=== PATIENT | male | born 1950 | race Caucasian/White ===

== ENCOUNTER 2024-08-08 08:37 | Inpatient (IN) ==
[2024-08-08] MEDS: LORazepam 2 MG/1 ML VIAL IM STA (08:46)
[2024-08-08] MEDS: HALOPERIDOL LACTATE 5 MG/ML 1 ML VIAL IM STA (08:46)
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
[2024-08-08] MEDS: HALOPERIDOL LACTATE 5 MG/ML 1 ML VIAL ONE ×2 (09:19→16:22)
[2024-08-08] MEDS: HALOPERIDOL LACTATE 5 MG/ML 1 ML VIAL IV STA ×2 (09:21→10:16)
[2024-08-08 09:33] LABS: Basophils # (auto) 0.04 K/uL (0.00-0.20); Basophils % (auto) 0.4 %; Eosinophils # (auto) 0.14 K/uL (0.00-0.50); Eosinophils % (auto) 1.5 %; Hematocrit (blood only) 40.8 % (42.0-52.0); Hemoglobin 14.3 g/dl (14.0-18.0); Immature Granulocytes # (auto) 0.08 K/uL (0.01-0.20); Immature Granulocytes % (auto) 0.9 %; Lymphocytes # (auto) 1.31 K/uL (1.20-3.40); Lymphocytes % (auto) 14.2 %; Mean Corpuscular Hemoglobin 31.2 pg (25.0-34.0); Mean Corpuscular Volume 89.1 fL (80.0-100.0); Mean Platelet Volume 10.1 fL (9.4-12.4); Monocytes # (auto) 0.69 K/uL (0.11-0.59); Monocytes % (auto) 7.5 %; Neutrophils # (auto) 6.94 K/uL (1.40-6.50); Neutrophils % (auto) 75.5 %; Platelet Count 164 K/uL (130-400); RDW Coefficient of Variation 12.4 % (11.5-14.5); RDW Standard Deviation 40.7 fL (36.4-46.3); Red Blood Count 4.58 M/uL (4.70-6.10)
--- NOTE | 2024-08-08 09:46 | XRay Report ---
XR chest 1V portable CLINICAL HISTORY: trauma, fall, ams, dementia TECHNIQUE: Single frontal radiograph of the chest was obtained. Comparison: None available at the time of this dictation. FINDINGS: An implanted pacemaker is seen. The cardiomediastinal silhouette is normal. The lungs are clear. No e vidence of pleural effusion or pneumothorax. IMPRESSION: No acute chest disease. ACT 112: Negative or not required by law. Electronically signed by: Benoit Silver M.D. 08/08/2024 9:45 AM
[2024-08-08 09:47] LABS: Alanine Aminotransferase 24 U/L (7-52); Albumin Globulin Ratio 1.6 (0.9-2); Albumin Level 4.5 gm/dl (3.4-5.0); Alkaline Phosphatase 83 U/L (34-104); Anion Gap 13 (3-11); Aspartate Aminotransferase 23 U/L (13-39); BUN Creatinine Ratio 18.7 (10-20); Bilirubin,Total 0.7 mg/dl (0.2-1.0); Blood Urea Nitrogen 23 mg/dl (6-23); Calcium 9.6 mg/dl (8.6-10.3); Carbon Dioxide 22 mmol/L (21-32); Chloride 106 mmol/L (98-107); Globulin 2.8 gm/dl (2.5-4.0); Glucose 169 mg/dl (70-99(Fasting)); Magnesium 1.8 mg/dl (1.7-2.4); Potassium 3.8 mmol/L (3.5-5.1); Sodium 141 mmol/L (136-145); Total Protein 7.3 gm/dl (6.0-8.3)
[2024-08-08 09:57] LABS: INR 1.1 (0.9-1.1); Prothrombin Time 11.9 Seconds (9.0-12.0)
[2024-08-08 10:01] LABS: Thyroid Stimulating Hormone 2.438 uIu/ml (0.300-4.500)
[2024-08-08] MEDS: FAMOTIDINE 20MG IV PUSH 20 MG/5 ML SYR IV STA (11:25)
[2024-08-08] MEDS: dexAMETHasone**PF** 10 MG/ML VIAL IV ONE (11:25)
[2024-08-08] MEDS: diphenhydrAMINE 50 MG/ML VIAL IV STA (11:25)
--- NOTE | 2024-08-08 11:26 | Electrocardiogram Report ---
Test Reason : Blood Pressure : */* mmHG Vent. Rate : 134 BPM Atrial Rate : 300 BPM P-R Int : * ms QRS Dur : 92 ms QT Int : 380 ms P-R-T Axes : * -29 -26 degrees QTcB Int : 567 ms Atrial flutter with variable A-V block with rapid ventricular response Abnormal ECG No previous ECGs available Confirmed by Afshin Villa ([id number]) on 08/08/2024 11:26:27 AM Referred By: REFERRED SELF Confirmed By: Afshin Villa
--- NOTE | 2024-08-08 12:45 | CT Scan Report ---
CT head/brain wo con CLINICAL HISTORY: trauma, fall, ams, dementia Technique: Contiguous axial CT images of the head were acquired from the base of the skull to the jim rose without intravenous contrast administration. Images were viewed in brain, subdural and bone [facility]. Automated dose lowering techniques and/or adjustment according to patient size were utilized for this exam. Comparison: None available at the time of this dictation. Findings: Areas of decreased attenuation are present in the periventricular and subcortical white matter bilate rally consistent with small vessel ischemic disease. Generalized cerebral atrophy with commensurate e nlargement of the ventricles, sulci, and cisterns is also present. There is no acute intracranial hem orrhage or evidence of acute territorial infarction. No shift of the midline structures, mass effect, or extra-axial abnormalities are shown. Atherosclerotic calcifications are present in the intracran ial segments of the internal carotid arteries. Calcifications of the falx are seen. Imaged portions of the paranasal sinuses and mastoid air cells are clear. The orbits appear normal. There are no acute fractures of the calvaria or scalp swelling. Impression: No acute intracranial hemorrhage, no evidence of acute territorial infarction or other acute intracra nial disease process. ACT 112: Negative or not required by law. Electronically signed by: Benoit Silver M.D. 08/08/2024 12:43 PM
--- NOTE | 2024-08-08 12:45 | CT Scan Report ---
CT OF THE CERVICAL SPINE WITHOUT CONTRAST CLINICAL HISTORY: trauma, fall, ams, dementia COMPARISON STUDY: No previous studies for comparison. TECHNIQUE: Helical axial images of the cervical spine were obtained without IV contrast. Sagittal a nd coronal reconstructions were viewed. Automated exposure control was utilized for the study. A do se lowering technique was utilized adhering to the principles of ALARA. FINDINGS: There is reversal of the cervical lordosis. Vertebral body heights are maintained. No acute cervical spine fracture or subluxation is present. There is no prevertebral edema. Facet joints are intact. Moderate multilevel degenerative disc disease with disc space narrowing and endplate osteoph ytosis is present. There is moderate multilevel facet arthrosis. IMPRESSION: No acute cervical spine fracture or subluxation. ACT 112: Negative or not required by law. Electronically signed by: Pankaj Mensah M.D. 08/08/2024 12:44 PM
[2024-08-08] MEDS: OLANZapine 10 MG/2.1 ML SDV IM STA (12:46)
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
--- NOTE | 2024-08-08 13:47 | Emergency Department Note ---
ED Visit Note I was asked by Dr. Mckeon, ED attending physician, to perform a forehead laceration repair on this 74-year-old male patient. Please see Dr. Mckeon's d ictation for further details of the patient's injuries, treatment provided and final disposition. PROCEDURE NOTE: It is noted that the patient was sedated prior to my procedure. I did explain to the patient what I was going to do, and he agreed to allow me to perform the repair. Using lidocaine 1% with epinephrine, good local anesthesia was administered. Peripheral tissue was then cleansed with iodine, then the wound was irrigated with approximately 125 cc of normal saline. Exploration of the wound does show an underlying 1.5 cm laceration that extends into the underlying subcutaneous space. This portion of the wound was approximated using a 5-0 Vicryl running suture. After irrigation, the wound was then externally closed using 5-0 nylon simple interrupted sutures x 8. External wound measures 4.5 cm in length. Bacitracin was applied. The patient tolerated the procedure well without any significant bleeding. .
[2024-08-08] MEDS: LIDOCAINE 1%/EPINEPHRINE 1:100,000 50 ML VIAL INFIL ONE (14:15)
[2024-08-08] MEDS: DIPHTHER/TETAN/PERTUS Vaccine (Tdap, Adol/Adult) 0.5mL IM ONE (14:51)
[2024-08-08] MEDS ORDERED: CARBOHYDRATES FOR HYPOGLYCEMIA PO PRN (16:05)
[2024-08-08] MEDS ORDERED: GLUCOSE 40% GEL 15 GM TUBE PO PRN (16:05)
[2024-08-08] MEDS ORDERED: GLUCAGON FOR INJ 1 MG VIAL SQ PRN (16:05)
[2024-08-08] MEDS ORDERED: VANCOMYCIN CONSULT ACTIVE PRN (16:05)
[2024-08-08] MEDS ORDERED: DEXTROSE 50% 50 ML SYRINGE IV PRN (16:05)
[2024-08-08] MEDS ORDERED: ONDANSETRON INJ 2 MG/ML 2 ML VIAL IV PRN (16:05)
[2024-08-08] MEDS ORDERED: GLUCOSE 10 TAB/TUBE PO PRN (16:05)
[2024-08-08] MEDS: HALOPERIDOL LACTATE 5 MG/ML 1 ML VIAL IM PRN (16:21)
[2024-08-08] MEDS: Patient's HEIGHT &/or WEIGHT Needed STA (17:57)
[2024-08-08] MEDS: METOPROLOL TARTRATE 25 MG TAB PO STA (17:57)
[2024-08-08] MEDS: Patient's ALLERGY Info needs ENTERED STA (17:57)
[2024-08-08] MEDS: INSULIN ASPART PER UNIT CHARGE SC SCH (18:03)
[2024-08-08] MEDS: VANCOMYCIN HCL 1,750 MG in SODIUM CHLORIDE 0.9% 500 ML IV ONE (18:28)
[2024-08-08] MEDS: SODIUM CHLORIDE 0.9% 500 ML IV SCH (18:51)
[2024-08-08] MEDS: cefTRIAXone SODIUM 2,000 MG/50 ML BAG IV SCH (19:31)
[2024-08-08] MEDS: SIMVASTATIN 40 MG TAB PO SCH (20:13)
[2024-08-08] MEDS: TAMSULOSIN HCL 0.4 MG CAP PO SCH (20:13)
[2024-08-08] MEDS: QUEtiapine FUMARATE 25 MG TABLET PO SCH (20:14)
[2024-08-08] MEDS: FAMOTIDINE 20 MG TAB PO SCH (20:14)
[2024-08-08] MEDS ORDERED: SODIUM CHLORIDE 0.9% IV SCH (21:00)
[2024-08-08] MEDS ORDERED: VANCOMYCIN HCL IV SCH (21:00)
[2024-08-08] MEDS ORDERED: MEMANTINE HCL 10 MG TAB PO SCH (21:00)
[2024-08-09 00:31] LABS: Appearance Urine Turbid (Clear); Bacteria Urine Automated None Seen (None Seen); Bilirubin Urine Negative (Negative); Blood Urine Negative (Negative); Color Urine Yellow; Epithelial Cell Urine Auto 0-2 /hpf (0-2); Glucose Urine UA 1+ (Negative); Ketones Urine Negative (Negative); Leukocyte Esterase Urine Negative (Negative); Nitrite Urine Negative (Negative); Protein Urine Negative (Negative); RBC Urine Automated 0-2 /hpf (0-2); Specific Gravity Urine 1.026 (1.000-1.030); Urobilinogen Urine Negative (Negative); WBC Urine Automated 0-5 /hpf (0-5)
[2024-08-09 01:01] LABS: Amorphous Sediment Urine Present (None Prsent)
[2024-08-09] MEDS: VANCOMYCIN HCL 750 MG in SODIUM CHLORIDE 0.9% 250 ML IV SCH (05:28)
[2024-08-09 06:42] LABS: Basophils # (auto) 0.03 K/uL (0.00-0.20); Basophils % (auto) 0.3 %; Eosinophils # (auto) 0.04 K/uL (0.00-0.50); Eosinophils % (auto) 0.4 %; Hematocrit (blood only) 39.5 % (42.0-52.0); Hemoglobin 13.8 g/dl (14.0-18.0); Immature Granulocytes # (auto) 0.04 K/uL (0.01-0.20); Immature Granulocytes % (auto) 0.4 %; Lymphocytes # (auto) 1.08 K/uL (1.20-3.40); Lymphocytes % (auto) 10.8 %; Mean Corpuscular Hemoglobin 31.4 pg (25.0-34.0); Mean Corpuscular Hgb Conc 34.9 g/dL (32.0-36.0); Mean Platelet Volume 9.8 fL (9.4-12.4); Monocytes # (auto) 0.87 K/uL (0.11-0.59); Monocytes % (auto) 8.7 %; Neutrophils # (auto) 7.98 K/uL (1.40-6.50); Neutrophils % (auto) 79.4 %; Platelet Count 140 K/uL (130-400); RDW Coefficient of Variation 12.5 % (11.5-14.5); RDW Standard Deviation 41.3 fL (36.4-46.3); Red Blood Count 4.39 M/uL (4.70-6.10); White Blood Count 10.04 K/ul (4.8-10.8)
[2024-08-09 06:52] LABS: BUN Creatinine Ratio 20.5 (10-20); Calcium 8.9 mg/dl (8.6-10.3); Creatinine Clr Calc Pharmacy 90.9 ml/min; Magnesium 1.9 mg/dl (1.7-2.4); Potassium 3.9 mmol/L (3.5-5.1)
[2024-08-09] MEDS ORDERED: DEXAMETHASONE SOD INJ 4 MG/ML VIAL IV SCH (09:00)
[2024-08-09] MEDS ORDERED: DONEPEZIL HCL 10 MG TAB PO SCH (09:00)
[2024-08-09] MEDS ORDERED: dexAMETHasone 6 MG in SYRINGE 0 ML IV SCH (09:00)
[2024-08-09] MEDS: risperiDONE 1 MG TABLET PO SCH (09:37)
[2024-08-09] MEDS: APIXABAN 5 MG TABLET PO SCH (09:37)
[2024-08-09] MEDS: METOPROLOL SUCC 50MG EXT REL TAB PO SCH (09:37)
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
--- NOTE | 2024-08-09 11:11 | XCELERA ---
[id number]
[2024-08-09 13:55] LABS: Estimated Average Glucose 131 mg/dl; Hemoglobin A1C 6.2 % (4.5-5.6)
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
[2024-08-10] MEDS: LORazepam 2 MG/1 ML VIAL IV STA (01:00)
[2024-08-10] MEDS: HALOPERIDOL LACTATE 5 MG/ML 1 ML VIAL IV STA ×2 (01:00→01:27)
[2024-08-10 07:26] LABS: Basophils # (auto) 0.03 K/uL (0.00-0.20); Basophils % (auto) 0.4 %; Eosinophils # (auto) 0.13 K/uL (0.00-0.50); Eosinophils % (auto) 1.5 %; Hematocrit (blood only) 38.7 % (42.0-52.0); Hemoglobin 13.1 g/dl (14.0-18.0); Immature Granulocytes # (auto) 0.05 K/uL (0.01-0.20); Immature Granulocytes % (auto) 0.6 %; Lymphocytes # (auto) 1.29 K/uL (1.20-3.40); Lymphocytes % (auto) 15.2 %; Mean Corpuscular Hemoglobin 30.8 pg (25.0-34.0); Mean Corpuscular Hgb Conc 33.9 g/dL (32.0-36.0); Mean Corpuscular Volume 91.1 fL (80.0-100.0); Mean Platelet Volume 10.2 fL (9.4-12.4); Monocytes # (auto) 0.66 K/uL (0.11-0.59); Monocytes % (auto) 7.8 %; Neutrophils # (auto) 6.33 K/uL (1.40-6.50); Neutrophils % (auto) 74.5 %; Platelet Count 143 K/uL (130-400); RDW Coefficient of Variation 12.7 % (11.5-14.5); RDW Standard Deviation 41.9 fL (36.4-46.3); Red Blood Count 4.25 M/uL (4.70-6.10); White Blood Count 8.49 K/ul (4.8-10.8)
[2024-08-10 07:52] LABS: BUN Creatinine Ratio 23.8 (10-20); Calcium 9.2 mg/dl (8.6-10.3); Creatinine Clr Calc Pharmacy 89.8 ml/min; Potassium 3.6 mmol/L (3.5-5.1)
[2024-08-10] MEDS: QUEtiapine FUMARATE 25 MG TABLET PO SCH (08:51)
--- NOTE | 2024-08-10 10:49 | Hospitalist Progress Note ---
Date of Service August 10, 2024 Assessment & Plan (1) Metabolic encephalopathy: Plan: I do not believe his current symptoms represent metabolic encephalopathy. 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 Psychiatry consultation requested. Seroquel has been increased to 50 mg twice daily dosing. No evidence of urinary tract infection. Rocephin has been discontinued (2) Alzheimer dementia with behavioral disturbance: Plan: Supportive care. Seroquel dosage increased to 50 mg twice daily. Psychiatry evaluation requested (3) Diabetes mellitus: Plan: Stable. ADA diet. Sliding scale coverage as needed (4) Atrial fibrillation: Plan: Stable. Continue current medical management. Continue Eliquis. Cardiac echo report noted. No significant findings Plan Eventual long-term care placement probably in a dementia lockdown unit Admission and Anticipated Discharge Date Admission Date: August 08, 2024 Subjective The patient is awake but completely disoriented. He had sundown psychosis again last night requiring high doses of Ativan. Seroquel has been increased to 50 mg twice daily. Psychiatry consultation requested. No evidence of infection. Rocephin discontinued. Cardiac echo reveals moderate left ventricular hypertrophy with normal ejection fraction, no regional wall motion abnormalities, mild mitral regurgitation, mild left atrial enlargement. Urine analysis on admission was unremarkable. Review of Systems 2 Review of Systems: The patient is unable to reliably answer any review of systems questions at this time Physical Exam 2 Physical Exam: General-alert but disoriented. No fever HEENT-head atraumatic and normocephalic, pupils equal and reactive to light, extraocular muscles intact Neck-no lymphadenopathy or thyromegaly, trachea midline Chest-clear to auscultation. No rales, wheezing or rhonchi Cardiac-regular rate and rhythm, normal S1 and S2 Abdomen-normal bowel sounds, no hepatosplenomegaly Extremities-no cyanosis, clubbing, or edema Neuro-cranial nerves II through XII intact, motor and sensory function within normal limits, strength symmetrical, no focal deficits Psych-baseline dementia and completely disoriented at this time Results & Data Results & Data Vital Signs (Past 12 Hours) Vital Signs Temp Pulse Pulse Pulse Resp BP Pulse Ox 08/10/24 10:28 36.4 C L 65 21 155/100 H 98 08/10/24 09:06 57 L 08/10/24 07:37 08/10/24 07:06 36.4 C L 69 20 181/108 H 97 08/10/24 04:55 36.8 C 78 20 127/78 97 08/09/24 23:46 80 O2 Del Method 08/10/24 10:28 Room Air 08/10/24 09:06 08/10/24 07:37 Room Air 08/10/24 07:06 Room Air 08/10/24 04:55 Room Air 08/09/24 23:46 Laboratory Results 08/10/24 06:06 08/10/24 06:06 PG Care Time/CCT Total # of Minutes Spent Total Time Spent with Patient: Total time spent is greater than 50% in coordination of care (as documented) at patient's floor/unit and/or counseling patient: Coding Level of Care Code 70798 SUB INP/OBS CARE 3/50MIN Diagnoses Metabolic encephalopathy G93.41 Alzheimer dementia with behavioral disturbance G30.9; F02.818 Diabetes mellitus E11.9 Atrial fibrillation I48.91
--- NOTE | 2024-08-10 13:10 | Psychiatric Consultation ---
Date of Consultation August 10, 2024 Impression / Recommendations Impression 74 yo man with dementia with behavioral disturbance admitted medically for concern for metabolic encephalopathy and increased aggression. Psychiatry consulted for recommendation for dementia with agitation. Diagnostically consistent with possible encephalopathy/delirium superimposed on dementia with behavioral disturbance. Goal in dementia is to avoid medication management of behaviors if possible by maximizing non-pharmacologic strategies for behavioral management. However, given worsening agitation/aggression agree with use of scheduled antipsychotic as risk/benefit profile favors treatment. Note all antipsychotic medications carry black box warning for increased risk of all-cause mortality in setting of dementia. There is not evidence that combining multiple antipsychotics at non- optimized doses offers any improved benefit and increases risk for side effects so recommend attempting to consolidate use to one scheduled antipsychotic agent. Unclear if Seroquel vs risperidone was thought to be offering more if any benefit but would hold risperidone at this time given greater risk for EPS especially given reports of hallucinations at times and various dementia diagnoses on his problem list from [facility] (FTD, Alzheimer's disease, vascular). Haldol is typically considered higher risk for elderly population so would attempt use of olanzapine or Geodon for IM agent for behavioral emergency. If ineffective haldol can be considered as backup option but especially with IV use he must allow and remain on tele and EKG this morning showed QTc approaching 500mg. If QTc becomes >500ms would then use ativan as monotherapy for behavioral emergency given increased risk for torsades. Agree with increased dose of Seroquel as ordered, as things level out ideally he would have 25mg qAM and 50 or 75mg HS but I think given no signs of excessive sedation currently fine to keep at 50mg BID. I would not order prior to admission risperidone for now as just further impacts QTc and increases risk for additional side effects of akathisia which can perpetuate restlessness. While far from first line tx could consider clonidine patch for agitation and option for IV depakote if agitation worsens again. Sure scripts also shows he was on zoloft 200mg daily so I'd recommend starting maybe sertraline 100mg to at least prevent serotonin withdrawal further complicating the picture. Continue to monitor for benzo withdrawal given long hx of ativan use, suspect this may have contributed significantly to recent disinhibition. With his need for steroids on admission his agitation may get worse before it gets better. Overall, I spent a total of 60 minutes with this case including review of chart records, review of labwork, review of EKG QTc, direct evaluation of the patient at bedside, counseling the patient, discussion of the patient with the Nurse and with the hospitalist provider, discussion with the psychiatric liason during clinical rounds and documentation in the electronic health record. (1) Alzheimer dementia with behavioral disturbance: (2) Metabolic encephalopathy: Plan -Start sertraline 100mg qd as on sertraline prior to admission per sure scripts review -Agree with Seroquel 50mg BID po -Hold prior to admission risperidone, olanzapine and haldol -Consider clonidine patch for agitation -Consider use of IV Depakote if agitation increases again -1-on-1 given level of agitation -Consider melatonin 3mg qhs -Continue medical workup to rule out and treat any underlying causes contributing to potential delirium, avoid or limit use of deliriogenic medications (benzodiazepines, opioids, anticholinergics) -Continue with delirium prevention measures: raising blinds during the day, closing at night, frequent re-orientation, contact with family/friends, explaining procedures/nursing care measures prior to physical contact, correct any hearing and visual impairments -For behavioral emergency: olanzapine 5 mg IM x 1 (DO NOT exceed 20mg per 24 hours, check EKG if IM dose required, NEVER co-administer with IM or IV benzodiazepines). Psych History Identifying Data 74 yo man with dementia with behavioral disturbance admitted medically [facility] for metabolic encephalopathy and increased aggression. Psychiatry consulted for recommendation for dementia with agitation. Chief Complaint "Don't be a stranger, stop by anytime". History of Present Illness Raúl was brought to the hospital from [facility] for increased aggression requiring police intervention. He has required multiple medications for agitation since admission including haldol IM and IV. Within the last 24 hours has required 20mg of haldol (15mg total via IV and 5mg total IM) due to aggression. Review of outpatient prescription records show he has recent scripts for sertraline 200mg daily, ativan 1mg BID, risperidone 1mg daily, Seroquel 25mg BID, zyprexa 5mg ODT q8h prn, and haldol 2mg po q6h prn. Today mid-day he is pleasant, confused, cannot recall how he hurt his forehead. At one point asks "who reported me?" but able to be distracted from this unclear line of questions as deemed this could escalate his agitation due to paranoia. 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 No evidence for akathisia or EPS on visual exam. Allergies Allergy/AdvReac Type Severity Reaction Status Date / Time Penicillins Allergy Unknown Unknown - Unverified 08/09/24 17:41 On med list w/ [facility] levofloxacin Allergy Unknown Verified 08/09/24 17:41 Home Medications Medication Instructions Recorded Confirmed Type acetaminophen 325 mg tablet 650 mg PO Q6H PRN Pain/Fever 08/09/24 08/09/24 History apixaban 5 mg tablet (Eliquis) 5 mg PO BID 08/09/24 08/09/24 History atorvastatin 20 mg tablet 20 mg PO HS 08/09/24 08/09/24 History bisacodyl 10 mg rectal suppository 10 mg MT DAILY PRN Constipation 08/09/24 08/09/24 History (Dulcolax (bisacodyl)) cholecalciferol (vitamin D3) 25 25 mcg PO DAILY 08/09/24 08/09/24 History mcg (1,000 unit) tablet coenzyme Q10 100 mg capsule 200 mg PO DAILY 08/09/24 08/09/24 History (CoQ-10) donepezil 5 mg tablet 10 mg PO HS 08/09/24 08/09/24 History haloperidol 2 mg tablet 2 mg PO Q6H PRN 08/09/24 08/09/24 History Agitation/Aggression magnesium hydroxide 400 mg/5 mL 2,400 mg PO DAILY PRN Constipation 08/09/24 08/09/24 History oral suspension (Milk of Magnesia) magnesium oxide 250 mg PO HS 08/09/24 08/09/24 History memantine 10 mg tablet 10 mg PO BID 08/09/24 08/09/24 History metformin 500 mg tablet 500 mg PO DAILY 08/09/24 08/09/24 History metoprolol succinate 25 mg 25 mg PO DAILY 08/09/24 08/09/24 History tablet,extended release 24 hr olanzapine 5 mg tablet (Zyprexa) 5 mg PO Q8H PRN Agitation 08/09/24 08/09/24 History quetiapine 25 mg tablet (Seroquel) 25 mg PO BID 08/09/24 08/09/24 History risperidone 1 mg tablet (Risperdal) 1 mg PO DAILY 08/09/24 08/09/24 History sodium phosphates 19 gram-7 118 ml MT DAILY PRN Constipation 08/09/24 08/09/24 History gram/118 mL enema (Fleet Enema) tamsulosin 0.4 mg capsule (Flomax) 0.4 mg PO DAILY 08/09/24 08/09/24 History vitamin E 1,000 unit tablet 1 tab PO HS 08/09/24 08/09/24 History Patient History Social History Smoking Status: Unknown if ever smoked Preferred Language: Ivorian Communication Ability: Impaired Current Living Situation: [facility] Other Information That Helps Us Care for You: No Feels Safe at Home: Declines to Answer Assistive Devices: None Physical Exam Psychiatric: Orientation: alert and oriented to person; + not oriented to place and + not oriented to time Apperance: + disheveled Eye Contact: + fair eye contact Motor Behavior: no abnormal motor movements Speech: + abnormal rate/rhythm/volume of speech (mumbling at times) Affect: + labile affect Mood: + angry mood (at times); no anxious mood and no irritable mood Thought Process: + looseness of associations Thought Content: + preoccupation Suicidal Thoughts: denies suicidal thoughts Homicidal Thoug hts: denies homicidal thoughts Hallucinations: no auditory hallucinations and no visual hallucinations Cognition: language grossly intact; + recent memory not intact and + attention not intact Insight: + severely impaired insight Judgment: + severely impaired judgement Vital Signs (Past 24 Hours): Last Vital Signs Temp 36.4 C L 08/10/24 10:28 Pulse 65 08/10/24 10:28 Resp 21 08/10/24 10:28 BP 155/100 H 08/10/24 10:28 Pulse Ox 98 08/10/24 10:28 O2 Del Method Room Air 08/10/24 10:28 Results & Data (PSY) Medications Administered Apixaban (Apixaban 5 Mg Tablet) 5 mg PO BID RIGO Stop: 09/08/24 08:59 Last Admin: 08/10/24 08:52 Dose: 5 mg Documented By: Admin: 08/09/24 21:17 Dose: 5 mg Documented By: Admin: 08/09/24 09:37 Dose: 5 mg Documented By: MORAIMA Famotidine (Famotidine 20 Mg Tab) 20 mg PO BID RIGO Stop: 09/07/24 20:59 Last Admin: 08/10/24 08:52 Dose: 20 mg Documented By: Admin: 08/09/24 21:17 Dose: 20 mg Documented By: Admin: 08/09/24 09:36 Dose: 20 mg Documented By: Admin: 08/08/24 20:14 Dose: 20 mg Documented By: EDNA Haloperidol Lactate (Haloperidol Lactate 5 Mg/Ml 1 Ml Vial) 5 mg IM DAILY PRN PRN Reason: agitation/aggression Stop: 09/07/24 16:04 Last Admin: 08/10/24 00:04 Dose: 5 mg Documented By: Admin: 08/08/24 16:21 Dose: 5 mg Documented By: WALT Insulin Aspart (Insulin Aspart Per Unit Charge) 0 units SC ACHS RIGO Stop: 09/07/24 16:29 Last Admin: 08/10/24 12:42 Dose: Not Given Documented By: Admin: 08/10/24 07:46 Dose: Not Given Documented By: Admin: 08/09/24 21:18 Dose: Not Given Documented By: Admin: 08/09/24 16:43 Dose: 2 units Documented By: TOM Co-signed By: SERA Admin: 08/09/24 12:03 Dose: 2 units Documented By: MORAIMA Co-signed By: PRASHANT Admin: 08/09/24 09:13 Dose: Not Given Documented By: Admin: 08/08/24 20:15 Dose: 1 units Documented By: EDNA Co-signed By: ADA Admin: 08/08/24 18:03 Dose: Not Given Documented By: WALT Metoprolol Succinate (Metoprolol Succ 50mg Ext Rel Tab) 50 mg PO QAM RIGO Stop: 09/08/24 08:59 Last Admin: 08/10/24 08:52 Dose: 50 mg Documented By: Admin: 08/09/24 09:37 Dose: 50 mg Documented By: MORAIMA Quetiapine Fumarate (Quetiapine Fumarate 25 Mg Tablet) 50 mg PO BID RIGO Stop: 09/09/24 08:59 Last Admin: 08/10/24 08:51 Dose: 50 mg Documented By: JANIS Simvastatin (Simvastatin 40 Mg Tab) 40 mg PO PM RIGO Stop: 09/07/24 20:59 Last Admin: 08/09/24 21:17 Dose: 40 mg Documented By: Admin: 08/08/24 20:13 Dose: 40 mg Documented By: EDNA Tamsulosin HCl (Tamsulosin Hcl 0.4 Mg Cap) 0.4 mg PO HS RIGO Stop: 09/07/24 20:59 Last Admin: 08/09/24 21:17 Dose: 0.4 mg Documented By: Admin: 08/08/24 20:13 Dose: 0.4 mg Documented By: EDNA Coding Level of Care Code 61998 IN/OBS CONSULT LVL 4,60M Diagnoses Alzheimer dementia with behavioral disturbance G30.9; F02.818 Metabolic encephalopathy G93.41
--- NOTE | 2024-08-10 14:29 | Electrocardiogram Report ---
Test Reason : Blood Pressure : */* mmHG Vent. Rate : 70 BPM Atrial Rate : 70 BPM P-R Int : 204 ms QRS Dur : 86 ms QT Int : 454 ms P-R-T Axes : 81 -23 -17 degrees QTcB Int : 490 ms Sinus rhythm with AV dual-paced complexes and single PVC Diffuse Nonspecific T wave abnormality Prolonged QT Abnormal ECG When compared with ECG of 08-Aug-2024 11:09, Electronic ventricular pacemaker has replaced Atrial flutter Vent. rate has decreased by 64 bpm Confirmed by Afshin Villa ([id number]) on 08/10/2024 2:29:18 PM Referred By: REFERRED SELF Confirmed By: Afshin Villa
[2024-08-11] MEDS: OLANZapine 10 MG/2.1 ML SDV IM STA ×2 (00:44→02:34)
[2024-08-11 08:39] LABS: Basophils # (auto) 0.05 K/uL (0.00-0.20); Basophils % (auto) 0.6 %; Eosinophils # (auto) 0.25 K/uL (0.00-0.50); Eosinophils % (auto) 2.8 %; Hematocrit (blood only) 43.5 % (42.0-52.0); Hemoglobin 15.1 g/dl (14.0-18.0); Immature Granulocytes # (auto) 0.07 K/uL (0.01-0.20); Immature Granulocytes % (auto) 0.8 %; Lymphocytes % (auto) 18.1 %; Mean Corpuscular Hemoglobin 31.4 pg (25.0-34.0); Mean Corpuscular Hgb Conc 34.7 g/dL (32.0-36.0); Mean Corpuscular Volume 90.4 fL (80.0-100.0); Mean Platelet Volume 9.7 fL (9.4-12.4); Monocytes # (auto) 0.73 K/uL (0.11-0.59); Monocytes % (auto) 8.2 %; Neutrophils # (auto) 6.15 K/uL (1.40-6.50); Neutrophils % (auto) 69.5 %; Platelet Count 152 K/uL (130-400); RDW Coefficient of Variation 12.3 % (11.5-14.5); RDW Standard Deviation 40.6 fL (36.4-46.3); Red Blood Count 4.81 M/uL (4.70-6.10); White Blood Count 8.85 K/ul (4.8-10.8)
[2024-08-11 08:54] LABS: BUN Creatinine Ratio 21.8 (10-20); Calcium 9.4 mg/dl (8.6-10.3); Creatinine Clr Calc Pharmacy 96.7 ml/min
--- NOTE | 2024-08-11 11:13 | Hospitalist Progress Note ---
Date of Service August 11, 2024 Assessment & Plan (1) Metabolic encephalopathy: Plan: I do not believe his current symptoms represent metabolic encephalopathy. 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 Psychiatry consultation appreciated. Seroquel has been increased to 50 mg and will be given in the morning and at bedtime. No evidence of urinary tract infection. Rocephin has been discontinued (2) Alzheimer dementia with behavioral disturbance: Plan: Supportive care. Seroquel dosage increased to 50 mg twice daily. Psychiatry evaluation appreciated (3) Diabetes mellitus: Plan: Stable. ADA diet. Sliding scale coverage as needed (4) Atrial fibrillation: Plan: Stable. Continue current medical management. Continue Eliquis. Cardiac echo report noted. No significant findings Plan Hopeful discharge back to the [facility] facility tomorrow, August 12 Admission and Anticipated Discharge Date Admission Date: August 08, 2024 Subjective The patient is sleeping at the time of my rounds this morning. Apparently, he only has difficulty with sundowning during the nighttime. Seroquel will be given in the morning and again at nighttime. One-on-one supervision will be discontinued. Hopefully he can return to the [facility] tomorrow, August 12 Review of Systems 2 Review of Systems: The patient is currently asleep Physical Exam 2 Physical Exam: General-currently asleep. No fever HEENT-head atraumatic and normocephalic. Left forehead laceration is sutured with 8 interrupted sutures with hemostasis achieved. Underlying hematoma is resolving Neck-no lymphadenopathy or thyromegaly, trachea midline Chest-clear to auscultation. No rales, wheezing or rhonchi Cardiac-regular rate and rhythm, normal S1 and S2 Abdomen-normal bowel sounds, no hepatosplenomegaly Extremities-no cyanosis, clubbing, or edema Neuro-currently asleep. Cannot assess Psych-currently asleep. Cannot assess Results & Data Results & Data Vital Signs (Past 12 Hours) Vital Signs Temp Pulse Pulse Pulse Resp BP Pulse Ox 08/11/24 10:24 36.4 C L 71 19 96/65 L 95 08/11/24 09:19 61 08/11/24 07:28 36.4 C L 72 20 132/89 96 08/11/24 04:20 36.5 C 96 H 21 145/92 H 96 08/11/24 00:48 36.5 C 103 H 20 174/102 H 08/10/24 23:35 67 14 08/10/24 23:17 61 O2 Del Method 08/11/24 10:24 Room Air 08/11/24 09:19 08/11/24 07:28 Room Air 08/11/24 04:20 Room Air 08/11/24 00:48 Room Air 08/10/24 23:35 Room Air 08/10/24 23:17 Laboratory Results 08/11/24 08:19 08/11/24 08:19 PG Care Time/CCT Total # of Minutes Spent Total Time Spent with Patient: Total time spent is greater than 50% in coordination of care (as documented) at patient's floor/unit and/or counseling patient: Coding Level of Care Code 22357 SUB INP/OBS CARE MIN Diagnoses Metabolic encephalopathy G93.41 Alzheimer dementia with behavioral disturbance G30.9; F02.818 Diabetes mellitus E11.9 Atrial fibrillation I48.91
[2024-08-11] MEDS: QUEtiapine FUMARATE 25 MG TABLET PO SCH (20:04)
[2024-08-12] MEDS ORDERED: MELATONIN 3 MG TAB PO PRN (00:38)
[2024-08-12] MEDS: MELATONIN 3 MG TAB PO ONE (00:47)
[2024-08-12] MEDS: OLANZapine 10 MG/2.1 ML SDV IM STA ×3 (01:27→22:19)
[2024-08-12 07:40] LABS: Basophils # (auto) 0.03 K/uL (0.00-0.20); Basophils % (auto) 0.3 %; Eosinophils # (auto) 0.17 K/uL (0.00-0.50); Hematocrit (blood only) 39.4 % (42.0-52.0); Hemoglobin 14.3 g/dl (14.0-18.0); Immature Granulocytes # (auto) 0.06 K/uL (0.01-0.20); Immature Granulocytes % (auto) 0.7 %; Lymphocytes # (auto) 1.15 K/uL (1.20-3.40); Lymphocytes % (auto) 13.3 %; Mean Corpuscular Hemoglobin 32.2 pg (25.0-34.0); Mean Corpuscular Hgb Conc 36.3 g/dL (32.0-36.0); Mean Corpuscular Volume 88.7 fL (80.0-100.0); Mean Platelet Volume 10.1 fL (9.4-12.4); Monocytes % (auto) 8.1 %; Neutrophils # (auto) 6.51 K/uL (1.40-6.50); Neutrophils % (auto) 75.6 %; Platelet Count 152 K/uL (130-400); RDW Coefficient of Variation 12.2 % (11.5-14.5); RDW Standard Deviation 39.8 fL (36.4-46.3); Red Blood Count 4.44 M/uL (4.70-6.10); White Blood Count 8.62 K/ul (4.8-10.8)
[2024-08-12 07:44] LABS: Calcium 9.1 mg/dl (8.6-10.3); Creatinine Clr Calc Pharmacy 78.6 ml/min; Potassium 3.8 mmol/L (3.5-5.1)
--- NOTE | 2024-08-12 11:01 | Hospitalist Progress Note ---
Date of Service August 12, 2024 Assessment & Plan (1) Metabolic encephalopathy: Plan: I do not believe his current symptoms represent metabolic encephalopathy. 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 Psychiatry consultation appreciated. Seroquel has been increased to 100 mg at bedtime due to recurrent sundown psychosis again last night, August 11. No evidence of urinary tract infection. Rocephin has been discontinued (2) Alzheimer dementia with behavioral disturbance: Plan: Supportive care. Aricept and Namenda have been discontinued due to ineffectiveness. Psychiatry evaluation appreciated (3) Diabetes mellitus: Plan: Stable. ADA diet. Sliding scale coverage as needed (4) Atrial fibrillation: Plan: Stable. Continue current medical management. Continue Eliquis. Cardiac echo report noted. No significant findings Plan Hopeful discharge back to the [facility] when stable. Hopefully sometime next week Admission and Anticipated Discharge Date Admission Date: August 08, 2024 Subjective Recurrent sundown psychosis again last night. Nighttime Seroquel dosage increased to 100 mg. Aricept and Namenda have been discontinued because they are ineffective and can contribute to QT interval prolongation. The left forehead sutures were placed on admission on August 08 Review of Systems 2 Review of Systems: The patient is unable to reliably answer any questions related to review of systems at this time Physical Exam 2 Physical Exam: General-alert but disoriented x 3. No fever s HEENT-head atraumatic and normocephalic, pupils equal and reactive to light, extraocular muscles intact Neck-no lymphadenopathy or thyromegaly, trachea midline Chest-clear to auscultation. No rales, wheezing or rhonchi Cardiac-regular rate and rhythm, normal S1 and S2 Abdomen-normal bowel sounds, no hepatosplenomegaly Extremities-no cyanosis, clubbing, or edema Neuro-cranial nerves II through XII intact, motor and sensory function within normal limits, strength symmetrical, no focal deficits Psych-cannot assess. Severe dementia Results & Data Results & Data Vital Signs (Past 12 Hours) Vital Signs Temp Pulse Resp BP Pulse Ox O2 Del Method 08/12/24 07:29 36.9 C 76 18 108/72 94 Room Air 08/12/24 03:36 36.3 C L 75 22 144/93 H 98 Room Air Laboratory Results 08/12/24 06:39 08/12/24 06:39 PG Care Time/CCT Total # of Minutes Spent Total Time Spent with Patient: Total time spent is greater than 50% in coordination of care (as documented) at patient's floor/unit and/or counseling patient: Coding Level of Care Code 78875 SUB INP/OBS CARE 2/35MIN Diagnoses Metabolic encephalopathy G93.41 Alzheimer dementia with behavioral disturbance G30.9; F02.818 Diabetes mellitus E11.9 Atrial fibrillation I48.91
[2024-08-12] MEDS: QUEtiapine FUMARATE 100 MG TABLET PO SCH (20:33)
[2024-08-12] MEDS: OLANZapine 10 MG/2.1 ML SDV IM PRN (23:19)
--- NOTE | 2024-08-13 07:12 | Communication Note ---
Date of Service: August 13, 2024 Nursing notified me that patient had started getting agitated and moving around/out of bed. Considering his prior episodes of agitation and aggression pr evious nights, I ordered Zyprexa 5mg IM. Shortly after this, a Jerrica Ahmadi was called to room 210. I went to bedside and there were multiple nursing staff and several security officers at bedside attempting to calm the patient down and de- escalate the situation. After an extended period, the patient was agreeable to lay back in his bed and he was eventually able to be given the previously ordered Zyprexa 5mg IM. An additional 5mg IM of the Zyprexa was later administered in the next ~hour as he has not responded sufficiently to the initial dose. Unfortunately this has become a nightly issue this past week that Mr. Koch has reached the level of agitation and aggression that he has required multiple doses of IM medications. Additional guidance and/or daytime medication adjustments to prevent these escalating events would be appreciated. Resident Activity Tracking Resident Involvement: Resident Care Provided Care Provided: Adult Hospital Medicine
--- NOTE | 2024-08-13 10:25 | Hospitalist Progress Note ---
Date of Service August 13, 2024 Assessment & Plan (1) Metabolic encephalopathy: Plan: I do not believe his current symptoms represent metabolic encephalopathy. 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 Psychiatry consultation appreciated. Seroquel has been discontinued and he is now on Risperdal 5 mg at bedtime. He seems to respond to IM Risperdal so hopefully the oral dosage at bedtime will also work. No evidence of urinary tract infection. Rocephin has been discontinued (2) Alzheimer dementia with behavioral disturbance: Plan: Supportive care. Aricept and Namenda have been discontinued due to ineffectiveness. Psychiatry evaluation appreciated (3) Diabetes mellitus: Plan: Stable. ADA diet. Sliding scale coverage as needed (4) Atrial fibrillation: Plan: Stable. Continue current medical management. Continue Eliquis. Cardiac echo report noted. No significant findings Plan Hopeful discharge back to the [facility] when stable. Hopefully sometime this coming week Admission and Anticipated Discharge Date Admission Date: August 08, 2024 Subjective Recurrent sundown psychosis again last night despite increasing doses of Seroquel at bedtime. He does seem to respond to IM Risperdal. Seroquel has been switched to oral Risperdal at bedtime. Hopefully this will work for him. Review of Systems 2 Review of Systems: The patient is unable to reliably answer any questions related to review of systems at this time Physical Exam 2 Physical Exam: General-alert but disoriented x 3. No fever HEENT-head atraumatic and normocephalic, pupils equal and reactive to light, extraocular muscles intact Neck-no lymphadenopathy or thyromegaly, trachea midline Chest-clear to auscultation. No rales, wheezing or rhonchi Cardiac-regular rate and rhythm, normal S1 and S2 Abdomen-normal bowel sounds, no hepatosplenomegaly Extremities-no cyanosis, clubbing, or edema Neuro-cranial nerves II through XII intact, motor and sensory function within normal limits, strength symmetrical, no focal deficits Psych-cannot assess. Severe dementia Results & Data Results & Data Vital Signs (Past 12 Hours) Vital Signs Temp Pulse Resp BP Pulse Ox O2 Del Method 08/13/24 07:35 36.9 C 70 18 101/76 93 Room Air Laboratory Results 08/12/24 06:39 08/12/24 06:39 PG Care Time/CCT Total # of Minutes Spent Total Time Spent with Patient: Total time spent is greater than 50% in coordination of care (as documented) at patient's floor/unit and/or counseling patient: Coding Level of Care Code 89379 SUB INP/OBS CARE 2/35MIN Diagnoses Metabolic encephalopathy G93.41 Alzheimer dementia with behavioral disturbance G30.9; F02.818 Diabetes mellitus E11.9 Atrial fibrillation I48.91
[2024-08-13] MEDS: OLANZapine 5 MG TABLET PO SCH (19:21)
[2024-08-13] MEDS: OLANZapine 10 MG/2.1 ML SDV IM PRN (21:21)
[2024-08-14] MEDS: SERTRALINE HCL 100 MG TABLET PO SCH (10:53)
--- NOTE | 2024-08-14 13:26 | Hospitalist Progress Note ---
Date of Service August 14, 2024 Assessment & Plan (1) Metabolic encephalopathy: Plan: I do not believe his current symptoms represent metabolic encephalopathy. 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 Psychiatry consultation appreciated. Seroquel has been discontinued and he is now on Zyprexa 5 mg at bedtime. No evidence of urinary tract infection. Rocephin has been discontinued Could also be from ativan withdrawal as he was on ativan for years up until just before this admission-possibly once entering the longterm dementia unit? - add Ativan 0.5 mg HS, slow taper completely off recommended in future - start clonidine patch as per Psych recommendations as has ongoing requirement for prn antipsychotics at night - depakote can be considered -continue olanzapine 5mg po hs and can give IM prn with dose not to exceed 20mg in a 24 hr period (2) Alzheimer dementia with behavioral disturbance: Plan: history of Alzheimer's dementia with sundowning resides at her side dementia unit multiple episodes of sundowning every night since admission - psychiatry consulted 08/10; further discussed with psych on 08/14 - EKG 08/14 showed QTc of 462 - discontinued Seroquel, risperidone, Aricept, and Namenda - patient was on Zoloft 200 mg daily previously; started on sertraline 100 mg 08/14 to prevent serotonin withdrawal - long history of benzodiazepine use; 0.5 mg twice daily recently transition to 1 mg twice daily in June - to prevent benzodiazepine withdrawal causing agitation was started on Ativan 0.5 mg at bedtime 08/14 - clonidine 0.1 mg as needed added for agitation - can consider addition of melatonin at bedtime, and Depakote as needed for agitation if current regimen does not improve sundowning - continue with scheduled Zyprexa at bedtime - Haldol or Zyprexa 5 mg IM as needed - continue with supportive care (3) Diabetes mellitus: Plan: Controlled with metformin at home; Held on admission - recent A1c 6.2 - ADA diet - Sliding scale coverage as needed (4) Atrial fibrillation: Plan: history of A-fib on Eliquis - A-fib seen on telemetry - Continue Eliquis and metoprolol - No significant findings on echo (5) Laceration of forehead: Plan: s/p mechanical fall - Promote good hygiene/wound care with nursing - sutures can review be removed about 7 days after placement; possibly 08/15 Plan Chronic stable diagnoses: BPH - continue Flomax GERD - continue Pepcid VTE ppx: Eliquis Diet: DM type II diet Code status: full Dispo: PCU/telemetry, will discharge back to [facility] when acute psychiatric issues resolve Admission and Anticipated Discharge Date Admission Date: August 08, 2024 Supervising Physician Co-Signing Physician Notes PA Supervision Note: I personally saw and examined the patient. I verified all stoll points and agree with REBEKAH Beltran with the following exceptions and/or additions: S-patient received 3 doses of Zyprexa-2 IM and 1 p.o. overnight for agitation. I saw him midday and he was very pleasant but was only alert and oriented x 1. Reported feeling "much better." Denies pain anywhere. O- Vitals reviewed Gen: AAOx1, NAD HEENT: Anicteric sclerae, PERRL, left forehead with laceration with scab, [address], no surrounding erythema or drainage CV: RRR no mgr nl S1S2 Pulm: CTAB no wcr Abd: +BS soft NT ND no masses or hernias Ext: No edema, 2+ DP pulses Skin: No rashes, warm/dry Neuro: Full strength throughout CBC, BMP reviewed A/M-[id number]-old male here with dementia, with aggressive behaviors, possibly from Ativan withdrawal Resuming Ativan tonight, started olanzapine and clonidine Continue to follow Subjective Patient seen at bedside and doing well. He is oriented to self only. No agitation. Tele: A-fib with paced rhythm, heart rate in 70s; 6 beat V. tach overnight, 11 beat V. tach in a.m. Review of Systems Review of Systems: see HPI Physical Exam Physical Exam: The patient is awake, alert and oriented to self only, well developed and well nourished, normocephalic, in no acute distress. Non-toxic appearing. HEENT- EOMI, mucous membranes moist. Hearing grossly intact. Head laceration with sutures healing. Heart-normal S1 and S2. No murmurs, rubs or gallops. Lungs-clear bilaterally, no respiratory distress, no accessory muscle use. Abdomen-normal bowel sounds and soft. No ascites noted. Non-tender. Extremities- no clubbing, cyanosis, or edema. Results & Data Results & Data Vital Signs (Past 12 Hours) Vital Signs Temp Pulse Resp BP Pulse Ox O2 Del Method 08/14/24 11:54 37.0 C 70 20 153/92 H 99 Room Air 08/14/24 07:45 36.4 C L 71 20 151/97 H 97 Room Air PG Care Time/CCT Total # of Minutes Spent Total Time Spent with Patient: Total time spent is greater than 50% in coordination of care (as documented) at patient's floor/unit and/or counseling patient: Coding Level of Care Code None Diagnoses Metabolic encephalopathy G93.41 Alzheimer dementia with behavioral disturbance G30.9; F02.818 Diabetes mellitus E11.9 Atrial fibrillation I48.91 Laceration of forehead S01.81XA Encounter type: initial encounter (5) Laceration of forehead Encounter type: initial encounter Qualified Code(s): S01.81XA - Laceration without foreign body of other part of head, initial encounter
--- NOTE | 2024-08-14 19:05 | Billing Data ---
Date of Service August 14, 2024 Coding Level of Care Code 83593 SUB INP/OBS CARE
--- NOTE | 2024-08-14 21:10 | Electrocardiogram Report ---
Test Reason : Blood Pressure : */* mmHG Vent. Rate : 60 BPM Atrial Rate : 60 BPM P-R Int : 236 ms QRS Dur : 94 ms QT Int : 462 ms P-R-T Axes : 13 -21 -13 degrees QTcB Int : 462 ms AV dual-paced rhythm with prolonged AV conduction Abnormal ECG When compared with ECG of 10-Aug-2024 06:59, Premature supraventricular complexes are no longer Present Vent. rate has decreased by 10 bpm Confirmed by Rodrick Zaman ([id number]) on 08/14/2024 9:09:58 PM Referred By: REFERRED SELF Confirmed By: Rodrick Zaman
[2024-08-14] MEDS: LORazepam 0.5 MG TAB PO SCH (21:12)
[2024-08-15] MEDS: OLANZapine 10 MG/2.1 ML SDV IM PRN (01:03)
[2024-08-15] MEDS: OLANZapine 10 MG/2.1 ML SDV IM ONE (01:18)
[2024-08-15] MEDS: cloNIDine HCL 0.1 MG TAB PO PRN (01:50)
[2024-08-15] MEDS: HALOPERIDOL LACTATE 5 MG/ML 1 ML VIAL IM ONE (03:07)
--- NOTE | 2024-08-15 03:55 | Communication Note ---
Date of Service: August 15, 2024 Patient experiencing increasing agitation and restlessness throughout the night. Reviewed hospitalist note which indicated Risperdal nightly however per orders only nightly PO Zyprexa was ordered, clarification needed on whether Risperdal is intended to be on current medication list. Patient received new orders of PRN PO Ativan and clonidine overnight, no notable response. Patient received a total of two 5mg doses of IM Haldol and two 5mg doses of IM Zyprexa over the span of the night. I have concerns that the patient has continued to require multiple IM medications in order to remain safe, and has not been responding to these medications until late in the nighter 4am or later. Would appreciate further recommendations from psychiatry to help patient remain safe and reach goal of returning to [facility]. Resident Activity Tracking Resident Involvement: Resident Care Provided Care Provided: Adult Hospital Medicine
[2024-08-15 06:31] LABS: Hematocrit (blood only) 37.8 % (42.0-52.0); Hemoglobin 13.5 g/dl (14.0-18.0); Mean Corpuscular Hemoglobin 31.7 pg (25.0-34.0); Mean Corpuscular Hgb Conc 35.7 g/dL (32.0-36.0); Mean Corpuscular Volume 88.7 fL (80.0-100.0); Mean Platelet Volume 9.6 fL (9.4-12.4); Platelet Count 148 K/uL (130-400); RDW Coefficient of Variation 12.2 % (11.5-14.5); RDW Standard Deviation 39.3 fL (36.4-46.3); Red Blood Count 4.26 M/uL (4.70-6.10); White Blood Count 7.66 K/ul (4.8-10.8)
[2024-08-15 06:55] LABS: BUN Creatinine Ratio 17.8 (10-20); Calcium 9.1 mg/dl (8.6-10.3); Creatinine Clr Calc Pharmacy 83.8 ml/min; Potassium 4.1 mmol/L (3.5-5.1)
--- NOTE | 2024-08-15 08:29 | Hospitalist Progress Note ---
Date of Service August 15, 2024 Assessment & Plan (1) Alzheimer dementia with behavioral disturbance: Plan: history of Alzheimer's dementia with sundowning; possible benzodiazepine withdrawal component resides at [facility] dementia unit multiple episodes of sundowning every night since admission - psychiatry consulted 08/10; further discussed with psych on 08/14 - EKG 08/14 showed QTc of 462 - psych evaluated patient again 08/15 - discontinued Seroquel, risperidone, Aricept, and Namenda - patient was on Zoloft 200 mg daily previously; started on sertraline 100 mg 08/14 to prevent serotonin withdrawal - scheduled clonidine 0.1 mg HS - increase Zyprexa 5 mg to 10 mg at bedtime - discontinue Ativan (only received one dose on evening of 08/14) - Zyprexa 5 mg PO/IM as needed BID for agitation (do not exceed additional 10 mg Zyprexa in 24 hr period, never administer with IM or IV benzos within 60 minutes) - can consider IV Depakote if agitation still not controlled - repeat EKG 08/16 - One-on-one - continue with supportive care - will need psychiatric clearance before returning back to [facility] - continue with telemetry as QT prolonging agents being used and IM/IV psychiatric medications as needed (2) Diabetes mellitus: Plan: Controlled with metformin at home; Held on admission - recent A1c 6.2% - ADA diet - Sliding scale coverage as needed (3) Atrial fibrillation: Plan: history of A-fib on Eliquis - A-fib seen on telemetry - Continue Eliquis and metoprolol - No significant findings on echo (4) Laceration of forehead: Plan: s/p mechanical fall 08/08 - Promote good hygiene/wound care with nursing - sutures can review be removed about 7 days after placement; will likely remove 08/16 Plan Chronic stable diagnoses: BPH - continue Flomax GERD - continue Pepcid VTE ppx: Eliquis Diet: DM type II diet Code status: full Dispo: PCU/telemetry, will discharge back to [facility] when acute psychiatric issues resolve/ cleared by psych Admission and Anticipated Discharge Date Admission Date: August 08, 2024 Supervising Physician Co-Signing Physician Notes PA Torey Note: I personally saw and examined the patient. I verified all stoll points and agree with REBEKAH Beltran with the following exceptions and/or additions: S-Pt was out of bed for a few hours to a chair today, walked to the bathroom and back, ate 2 meals but not dinner, was sleeping in the evening when I saw him and I did not wake him. He again received 20mg of Haldol/Zyprexa overnight. O- Vitals reviewed Gen: sleeping, NAD HEENT: left forehead with laceration with scab, [address], no surrounding erythema or drainage CBC, BMP reviewed A/O-70-psqu-old male here with dementia, with aggressive behaviors, possibly from Ativan withdrawal vs thiamine deficiency/Wernicke's? B1 level came back low at 7-start high dose IV thiamine at 500mg IV q8h x 6 doses and watch for improvement dc Ativan, increase po zyprexa to 10mg and made clonidine scheduled rather than prn Continue to follow Subjective Patient seen at bedside, sleeping on exam. He had an episode of sundowning again last night and when she was given 10 mg of IM Haldol and 10 mg of olanzapine IM. He also received his nighttime dose of 5 mg olanzapine p.o. Tele: A-fib, ventricularly paced, HR 60 to 70s. Review of Systems Review of Systems: see HPI Physical Exam Physical Exam: The patient is sleeping on exam, well developed and well nourished, normocephalic, in no acute distress. Non-toxic appearing. HEENT- EOMI, mucous membranes moist. Hearing grossly intact. Head laceration with sutures healing. Extremities- no clubbing, cyanosis, or edema. Results & Data Results & Data Vital Signs (Past 12 Hours) Vital Signs Temp Pulse Pulse Pulse Resp BP BP 08/15/24 07:33 36.5 C 60 18 162/91 H 08/15/24 03:19 36.6 C 60 22 157/90 H 08/14/24 23:28 36.6 C 61 20 155/88 H 08/14/24 22:08 60 08/14/24 21:00 Pulse Ox O2 Del Method O2 Del Method 08/15/24 07:33 97 Room Air 08/15/24 03:19 98 Room Air 08/14/24 23:28 96 Room Air 08/14/24 22:08 08/14/24 21:00 Room Air Laboratory Results reviewed CBC and BMP PG Care Time/CCT Total # of Minutes Spent Total Time Spent with Patient: Total time spent is greater than 50% in coordination of care (as documented) at patient's floor/unit and/or counseling patient: Coding Level of Care Code None Diagnoses Alzheimer dementia with behavioral disturbance G30.9; F02.818 Diabetes mellitus E11.9 Atrial fibrillation I48.91 Laceration of forehead S01.81XA Encounter type: initial encounter (4) Laceration of forehead Encounter type: initial encounter Qualified Code(s): S01.81XA - Laceration without foreign body of other part of head, initial encounter
--- NOTE | 2024-08-15 15:10 | Psychiatric Progress Note ---
Date of Service August 15, 2024 Impression / Recommendations Impression 74 yo man with dementia with behavioral disturbance admitted medically for concern for metabolic encephalopathy and increased aggression. Psychiatry consulted for recommendation for dementia with agitation. Diagnostically consistent with possible encephalopathy/delirium superimposed on dementia with behavioral disturbance. Goal in dementia is to avoid medication management of behaviors if possible by maximizing non-pharmacologic strategies for behavioral management. However, given worsening agitation/aggression agree with use of scheduled antipsychotic as risk/benefit profile favors treatment. Note all antipsychotic medications carry black box warning for increased risk of all-cause mortality in setting of dementia. There is not evidence that combining multiple antipsychotics at non- optimized doses offers any improved benefit and increases risk for side effects so recommend attempting to consolidate use to one scheduled antipsychotic agent. Overall, I spent a total of 35 minutes with this case including review of chart records, nursing report, review of lab work, direct evaluation of the patient at bedside, counseling the patient, discussion of the patient with the hospitalist provider, discussion with the psychiatric liaison during clinical rounds, and documentation in the electronic health record. (1) Alzheimer dementia with behavioral disturbance: (2) Metabolic encephalopathy: Plan -D/c nightly Lorazepam -Continue Sertraline 100mg daily -Continue Clonidine 0.1mg HS -Increase Olanzapine to 10mg HS -Olanzapine 5mg PO/IM BID PRN for agitation (do not exceed 10mg per 24 hours, NEVER co-administer with IM or IV benzodiazepines within 60 minutes) -Repeat EKG tomorrow -Consider IV Depakote if agitation still not controlled -1-on-1 given level of agitation -Continue medical workup to rule out and treat any underlying causes contributing to potential delirium, avoid or limit use of deliriogenic medications (benzodiazepines, opioids, anticholinergics) -Continue with delirium prevention measures: raising blinds during the day, closing at night, frequent re-orientation, contact with family/friends, explaining procedures/nursing care measures prior to physical contact, correct any hearing and visual impairments Interval History Identifying Information 74 yo man with dementia with behavioral disturbance admitted medically for concern for metabolic encephalopathy and increased aggression. Psychiatry consulted for recommendation for dementia with agitation Chief Complaint Agitation Subjective Subjective Patient appeared pleasant on approach. Reports that his 2022 that [place] is on a [place] track. Is able to identify himself. He denies pain. Reports good mood. Feels safe. Has difficulty engaging in a rational conversation and is seen dozing off. Nursing reports patient's behavior became acutely worse after nightly lorazepam. Physical Exam Psychiatric Orientation: alert and oriented to person; + not oriented to place and + not oriented to time Apperance: + disheveled Eye Contact: + fair eye contact Motor Behavior: no abnormal motor movements Speech: + abnormal rate/rhythm/volume of speech (mumbling at times) Affect: + labile affect Mood: + angry mood (at times); no anxious mood and no irritable mood Thought Process: + looseness of associations Thought Content: + preoccupation Suicidal Thoughts: denies suicidal thoughts Homicidal Thoughts: denies homicidal thoughts Hallucinations: no auditory hallucinations and no visual hallucinations Cognition: language grossly intact; + recent memory not intact and + attention not intact Insight: + severely impaired insight Judgment: + severely impaired judgement Vital Signs (Past 24 Hours) Last Vital Signs Temp 36.6 C 08/15/24 11:09 Pulse 60 08/15/24 11:09 Resp 18 08/15/24 11:09 BP 134/89 08/15/24 11:09 Pulse Ox 97 08/15/24 11:09 O2 Del Method Room Air 08/15/24 11:09 Results & Data ([facility]) Laboratory Results Laboratory Results - last 24 hr 08/14/24 08/14/24 08/15/24 16:30 21:12 06:11 WBC 7.66 RBC 4.26 L Hgb 13.5 L Hct 37.8 L MCV 88.7 MCH 31.7 MCHC 35.7 RDW Std Deviation 39.3 RDW Coeff of Carter 12.2 Plt Count 148 MPV 9.6 Sodium 139 Potassium 4.1 Chloride 110 H Carbon Dioxide 22 Anion Gap 7 BUN 16 Creatinine 0.90 Est Cr Clr Drug Dosing 83.8 eGFR 90.74 BUN/Creatinine Ratio 17.8 Glucose 113 H POC Glucose 128 H 114 H Calcium 9.1 08/15/24 08/15/24 07:32 11:29 WBC RBC Hgb Hct MCV MCH MCHC RDW Std Deviation RDW Coeff of Carter Plt Count MPV Sodium Potassium Chloride Carbon Dioxide Anion Gap BUN Creatinine Est Cr Clr Drug Dosing eGFR BUN/Creatinine Ratio Glucose POC Glucose 112 H 125 H Calcium Current Inpatient Medications Current Inpatient Medications: Current Inpatient Medications Acetaminophen (Acetaminophen 325 Mg Tab) 650 mg PO Q4H PRN PRN Reason: Pain or Fever Stop: 09/07/24 16:04 Apixaban (Apixaban 5 Mg Tablet) 5 mg PO BID RIGO Stop: 09/08/24 08:59 Last Admin: 08/15/24 10:06 Dose: 5 mg Clonidine HCl (Clonidine Hcl 0.1 Mg Tab) 0.1 mg PO HS [facility] Stop: 09/14/24 20:59 Dextrose (Dextrose 50% 50 Ml Syringe) 25 - 50 ml IV UD PRN; Protocol PRN Reason: Hypoglycemia Protocol Stop: 09/07/24 16:04 Famotidine (Famotidine 20 Mg Tab) 20 mg PO BID RIGO Stop: 09/07/24 20:59 Last Admin: 08/15/24 10:06 Dose: 20 mg Glucagon (Glucagon For Inj 1 Mg Vial) 1 mg SQ UD PRN; Protocol PRN Reason: Hypoglycemia Protocol Stop: 09/07/24 16:04 Glucose (Glucose 40% Gel 15 Gm Tube) 15 - 30 gm PO UD PRN; Protocol PRN Reason: Hypoglycemia Protocol Stop: 09/07/24 16:04 Glucose (Glucose 10 Tab/Tube) 4 - 8 tab PO UD PRN; Protocol PRN Reason: Hypoglycemia Treatment Stop: 09/07/24 16:04 Haloperidol Lactate (Haloperidol Lactate 5 Mg/Ml 1 Ml Vial) 5 mg IM DAILY PRN PRN Reason: agitation/aggression Stop: 09/07/24 16:04 Last Admin: 08/15/24 00:21 Dose: 5 mg Insulin Aspart (Insulin Aspart Per Unit Charge) 0 units SC ACHS RIGO Stop: 09/07/24 16:29 Last Admin: 08/15/24 12:13 Dose: 4 units Lorazepam (Lorazepam 0.5 Mg Tab) 0.5 mg PO HS RIGO Stop: 09/13/24 20:59 Last Admin: 08/14/24 21:12 Dose: 0.5 mg Metoprolol Succinate (Metoprolol Succ 50mg Ext Rel Tab) 50 mg PO QAM RIGO Stop: 09/08/24 08:59 Last Admin: 08/15/24 10:06 Dose: 50 mg Miscellaneous (Carbohydrates For Hypoglycemia ) 15 - 30 gm PO UD PRN PRN Reason: Hypoglycemia Protocol Stop: 09/07/24 16:04 Olanzapine (Olanzapine 5 Mg Tablet) 5 mg PO HS [facility] Stop: 09/12/24 20:59 Last Admin: 08/14/24 21:13 Dose: 5 mg Ondansetron HCl (Ondansetron Inj 2 Mg/Ml 2 Ml Vial) 4 mg IV Q6H PRN PRN Reason: Nausea Stop: 09/07/24 16:04 Sertraline HCl (Sertraline Hcl 100 Mg Tablet) 100 mg PO QAM RIGO Stop: 09/13/24 09:44 Last Admin: 08/15/24 10:06 Dose: 100 mg Simvastatin (Simvastatin 40 Mg Tab) 40 mg PO PM [facility]IGO Stop: 09/07/24 20:59 Last Admin: 08/14/24 21:13 Dose: 40 mg Tamsulosin HCl (Tamsulosin Hcl 0.4 Mg Cap) 0.4 mg PO HS RIGO Stop: 09/07/24 20:59 Last Admin: 08/14/24 21:12 Dose: 0.4 mg
--- NOTE | 2024-08-15 18:37 | Billing Data ---
Date of Service August 15, 2024 Coding Level of Care Code 14059 SUB INP/OBS CARE
[2024-08-15] MEDS: THIAMINE HCL 500 MG in SODIUM CHLORIDE 0.9% 50 ML IV SCH (19:34)
[2024-08-15] MEDS: OLANZapine 10 MG TAB PO SCH (21:13)
[2024-08-15] MEDS: cloNIDine HCL 0.1 MG TAB PO SCH (21:14)
--- NOTE | 2024-08-16 09:43 | Hospitalist Progress Note ---
Date of Service August 16, 2024 Assessment & Plan (1) Alzheimer dementia with behavioral disturbance: Plan: encephalopathy/delirium superimposed on dementia with behavioral disturbance resides at [facility] dementia unit multiple episodes of sundowning since admission; improved overnight 08/15- - psychiatry consulted 08/10; further discussed with psych on 08/14, psych reeval 08/15 - Placed back on One-on-one 08/16 into the evening due to aggression, as per nursing patient wanted to leave and would not sit down, he then became aggressive in the afternoon - additional p.o. 5 mg Zyprexa was given - discontinued Seroquel, risperidone, Aricept, and Namenda - discontinue Ativan (only received one dose on evening of 08/14) - patient was on Zoloft 200 mg daily previously; started on sertraline 100 mg 08/14 to prevent serotonin withdrawal - scheduled clonidine 0.1 mg HS - increase Zyprexa 5 mg to 10 mg at bedtime 08/15 - with agitation during the day 08/16, adding a.m. dose of 2.5 mg Zyprexa - Zyprexa 5 mg PO/IM as needed for agitation (do not exceed additional 10 mg Zyprexa in 24 hr period, never administer with IM or IV benzos within 60 minutes) - can consider IV Depakote if agitation still not controlled - continue with supportive care - raising blinds during the day, closing at night, frequent re-orientation, contact with family/friends, explaining procedures/nursing care measures prior to physical contact, correct any hearing and visual impairments, walking patient around the halls, giving patient things to do - will need psychiatric clearance before returning back to [facility] - continue with telemetry as QT prolonging agents being used and IM/IV psychiatric medications as needed-repeat ECG on 08/16 with normal QTc (2) QT prolongation: Plan: resolved, falsely prolonged secondary to artifact on EKG - EKG on 08/16 showed QTc of 598 with artifact, repeat showed QTc of 424 - first EKG likely inaccurate due to artifact - pacemaker interpretation pending - difficulty with interrogating as no previous pacemaker records in our EMR, spoke with patient's on the phone who stated it is a [employer] pacemaker - olanzapine moderate risk for QT prolongation, sertraline low risk for QTc prolongation - Potassium WNL, recent magnesium 2.0 (3) Diabetes mellitus: Plan: Controlled with metformin at home; Held on admission - recent A1c 6.2% - ADA diet - With minimal insulin given and glucose stable, discontinue NovoLog 08/16 - continue to monitor glucose for hyperglycemia and can add NovoLog as needed (4) Atrial fibrillation: Plan: history of A-fib on Eliquis - A-fib seen on telemetry - Continue Eliquis and metoprolol - No significant findings on echo (5) Laceration of forehead: Plan: s/p mechanical fall 08/08 - Promote good hygiene/wound care with nursing - sutures to be removed today 08/16 (6) Thiamine deficiency: Plan: B1 on admission low, 7 - Thiamine IV 500 mg Q8 ordered, can transition to PO on discharge Plan Chronic stable diagnoses: BPH - continue Flomax GERD - continue Pepcid VTE ppx: Eliquis Diet: DM type II diet Code status: full Dispo: PCU/telemetry, will discharge back to [facility] when acute psychiatric issues resolve/ cleared by psych - with needing one-on-one 08/16, will likely not discharge until 08/18 as needs to be off one-on-one for 24 hours Admission and Anticipated Discharge Date Admission Date: August 08, 2024 Supervising Physician Co-Signing Physician Notes REBEKAH Supervision Note: I personally saw and examined the patient. I verified all stoll points and agree with REBEKAH Beltran with the following exceptions and/or additions: S-patient had a much better night last night with no need for as needed medications. Did get a little more restless and agitated towards the evening today. When I saw him he was a bit jumpy but had no complaints. O- Vitals reviewed Gen: Alert awake oriented x 1, NAD HEENT: left forehead with laceration with scab, [address], no surrounding erythema or drainage CV-regular rate and rhythm, no murmurs Rubs Pulm: Clear to Auscultation Bilaterally ECG reviewed A/I-[id number]-old male here with dementia, with aggressive behaviors, possibly from Ativan withdrawal vs thiamine deficiency/Wernicke's? B1 level came back low at 7-started high dose IV thiamine at 500mg IV q8h x 6 doses and watch for improvement Continue increased dose of po zyprexa to 10mg and scheduled clonidine at bedtime, add on morning dose of Zyprexa 2.5 mg for tomorrow Continue to follow Subjective Patient seen at bedside and doing well. He was very pleasant, watching tv, in be d with the curtains down. He was oriented to self only. Opened the curtains partway until patient stated it was too bright to promote good sleep wake cycles. Notified nurses to get patient OOB and walking today. To have sutures removed today. Updated patient's via phone, all questions answered. Tele: Sinus, paced rhythm, HR 60s. Review of Systems Review of Systems: see HPI Physical Exam Physical Exam: The patient is awake, alert and oriented to self only, well developed and well nourished, normocephalic and atraumatic, in no acute distress. Non-toxic appearing. HEENT- EOMI, mucous membranes moist. Hearing grossly intact. Sutures on forehead laceration healing. Heart-normal S1 and S2. No murmurs, rubs or gallops. Lungs-clear bilaterally, no respiratory distress, no accessory muscle use. Abdomen-normal bowel sounds and soft. No ascites noted. Non-tender. Extremities- no clubbing, cyanosis, or edema. Rheumatologic-normal range of motion. Psychiatric-normal affect. Results & Data Results & Data Vital Signs (Past 12 Hours) Vital Signs Temp Pulse Pulse Pulse Pulse Resp BP 08/16/24 08:06 60 12 125/92 08/16/24 02:54 36.5 C 55 L 16 08/15/24 22:39 36.9 C 60 18 08/15/24 21:58 61 BP Pulse Ox O2 Del Method 08/16/24 08:06 97 Room Air 08/16/24 02:54 120/67 95 Room Air 08/15/24 22:39 151/82 H 98 Room Air 08/15/24 21:58 Laboratory Results reviewed glucose Diagnostic Findings reviewed EKG PG Care Time/CCT Total # of Minutes Spent Total Time Spent with Patient: Total time spent is greater than 50% in coordination of care (as documented) at patient's floor/unit and/or counseling patient: Coding Level of Care Code None Diagnoses Alzheimer dementia with behavioral disturbance G30.9; F02.818 QT prolongation R94.31 Diabetes mellitus E11.9 Atrial fibrillation I48.91 Laceration of forehead S01.81XA Encounter type: initial encounter Thiamine deficiency E51.9 (5) Laceration of forehead Encounter type: initial encounter Qualified Code(s): S01.81XA - Laceration without foreign body of other part of head, initial encounter
[2024-08-16] MEDS: OLANZapine 5 MG TABLET PO PRN (14:58)
--- NOTE | 2024-08-16 18:57 | Billing Data ---
Date of Service August 16, 2024 Coding Level of Care Code 95524 SUB INP/OBS CARE
--- NOTE | 2024-08-16 21:21 | Electrocardiogram Report ---
Test Reason : Blood Pressure : */* mmHG Vent. Rate : 62 BPM Atrial Rate : 37 BPM P-R Int : 232 ms QRS Dur : 96 ms QT Int : 590 ms P-R-T Axes : * -32 -71 degrees QTcB Int : 598 ms AV dual-paced rhythm with prolonged AV conduction with occasional atrial-paced complexes Abnormal ECG When compared with ECG of 14-Aug-2024 10:59, Vent. rate has increased by 2 bpm Confirmed by Rodrick Zaman ([id number]) on 08/16/2024 9:20:55 PM Referred By: REFERRED SELF Confirmed By: Rodrick Zaman
[2024-08-17] MEDS: OLANZAPINE 2.5 MG TAB PO SCH (08:34)
[2024-08-17] MEDS: METOPROLOL SUCC 50MG EXT REL TAB PO STA (10:37)
--- NOTE | 2024-08-17 12:26 | Hospitalist Progress Note ---
Date of Service August 17, 2024 Assessment & Plan (1) Alzheimer dementia with behavioral disturbance: Plan: encephalopathy/delirium superimposed on dementia with behavioral disturbance resides at [facility] dementia unit but was just admitted there 5 days prior to admission multiple episodes of sundowning/aggression since admission - psychiatry consulted 08/10; further discussed with psych on 08/14, psych reeval 08/15 - Placed back on One-on-one 08/16 due to aggression, nursing to remove 1:1 1530 08/17 - discontinued home Seroquel, risperidone, Aricept, and Namenda - He was on ativan detention prior to admission with jail but this was stopped it seems? discontinued Ativan here after received one dose on evening of 08/14 - patient was on Zoloft 200 mg daily previously; resumed on sertraline 100 mg 08/14 to prevent serotonin withdrawal - started scheduled clonidine 0.1 mg HS - increase Zyprexa 5 mg to 10 mg at bedtime 08/15 - with agitation during the day 08/16, added a.m. dose of 2.5 mg Zyprexa - Zyprexa 5 mg PO/IM as needed for agitation (do not exceed additional 10 mg Zyprexa in 24 hr period, never administer with IM or IV benzos within 60 minutes) - can consider IV Depakote if agitation still not controlled - continue with supportive care - raising blinds during the day, closing at night, frequent re-orientation, contact with family/friends, explaining procedures/nursing care measures prior to physical contact, correct any hearing and visual impairments, walking patient around the halls, giving patient things to do - will need psychiatric clearance before returning back to [facility] - continue with telemetry as QT prolonging agents being used and IM/IV psychiatric medications as needed - repeat ECG on 08/16 with normal QTc (2) QT prolongation: Plan: resolved, falsely prolonged secondary to artifact on EKG - EKG on 08/16 showed QTc of 598 with artifact, repeat showed QTc of 424 - first EKG likely inaccurate due to artifact - pacemaker interpretation no acute abnormalities - olanzapine moderate risk for QT prolongation, sertraline low risk for QTc prolongation - Potassium WNL, recent magnesium 2.0 (3) Diabetes mellitus: Plan: Controlled with metformin at home; Held on admission - recent A1c 6.2% - ADA diet - With minimal insulin given and glucose stable, discontinue NovoLog 08/16 - continue to monitor glucose for hyperglycemia and can add NovoLog as needed (4) Atrial fibrillation: Plan: history of A-fib on Eliquis - A-fib seen on telemetry - Continue Eliquis - No significant findings on echo - Metoprolol decreased from 50 to 12.5mg 08/17 due to AM hypotension likely caused by clonidine (5) Laceration of forehead: Plan: s/p mechanical fall 08/08 - Promote good hygiene/wound care with nursing - sutures removed 08/16 (6) Thiamine deficiency: Plan: B1 on admission low, 7 - Thiamine IV 500 mg Q8 x6 bags given - transition to to 200 mg PO daily 08/18 Plan Chronic stable diagnoses: BPH - continue Flomax GERD - continue Pepcid VTE ppx: Eliquis Diet: DM type II diet Code status: full Dispo: PCU/telemetry, will discharge back to [facility] when acute psychiatric issues resolve/ cleared by psych - with needing one-on-one 08/16-08/17, will likely not discharge until 08/18 as needs to be off one-on-one for 24 hours. 1:1 lifted 1530 08/17 Admission and Anticipated Discharge Date Admission Date: August 08, 2024 Supervising Physician Co-Signing Physician Notes REBEKAH Supervision Note: I personally saw and examined the patient. I verified all stoll points and agree with REBEKAH Beltran with the following exceptions and/or additions: S-Pt had a good, uneventful night last night, is very pleasant today and answering questions more appropriately. He denies pain, is eating. O- Vitals reviewed-BPs a bit soft from clonidine-metoprolol held Gen: Alert awake oriented x 1, NAD HEENT: left forehead with laceration with sutures removed,steri strips in place, no surrounding erythema or drainage CV-regular rate and rhythm, no murmurs Rubs Pulm: Clear to Auscultation Bilaterally Abd +BS soft NT ND A/C-[id number]-old male here with dementia, with aggressive behaviors, possibly from Ativan withdrawal vs thiamine deficiency/Wernicke's? B1 level came back low at 7-started high dose IV thiamine at 500mg IV q8h x 6 doses and watch for improvement-switch to po thiamine tomorrow Continue increased dose of po zyprexa to 10mg and scheduled clonidine at bedtime, added on morning dose of Zyprexa 2.5 mg Clonidine causing lower BPs-will monitor and may need to lower dose of metoprolol so he can receive it to prevent rapid afib Continue to follow and remove 1:1 Subjective Patient seen at bedside and doing well. He was very pleasant, watching tv, in his recliner chair. He was oriented to self only. Patient was on a one-on-one. Let the nurses know to get him up and walking around today to continue to promote supportive care. Tele: A fib, paced rhythm, HR 60s-70s, did reach up to 150 overnight. Reviewed pacemaker interrogation, no acute abnormalities. Multiple episodes of elevated ventricular rate; 08/08 186, 07/03 186, 07/02 185 Review of Systems Review of Systems: see HPI Physical Exam Physical Exam: The patient is awake, alert and oriented to self only, well developed and well nourished, normocephalic, in no acute distress. Non-toxic appearing. HEENT- EOMI, mucous membranes moist. Hearing grossly intact. Steristrips on forehead. Heart-normal S1 and S2. No murmurs, rubs or gallops. Lungs-clear bilaterally, no respiratory distress, no accessory muscle use. Abdomen-normal bowel sounds and soft. No ascites noted. Non-tender. Extremities- no clubbing, cyanosis, or edema. Rheumatologic-normal range of motion. Psychiatric-normal affect. Results & Data Results & Data Vital Signs (Past 12 Hours) Vital Signs Temp Pulse Pulse Resp BP Pulse Ox O2 Del Method 08/17/24 11:07 36.3 C L 86 14 100/60 97 Room Air 08/17/24 10:49 Room Air 08/17/24 07:16 69 08/17/24 04:28 36.8 C 83 20 84/60 L Room Air Diagnostic Findings reviewed pacemaker interrogation PG Care Time/CCT Total # of Minutes Spent Total Time Spent with Patient: Total time spent is greater than 50% in coordination of care (as documented) at patient's floor/unit and/or counseling patient: Coding Level of Care Code None Diagnoses Alzheimer dementia with behavioral disturbance G30.9; F02.818 QT prolongation R94.31 Diabetes mellitus E11.9 Atrial fibrillation I48.91 Laceration of forehead S01.81XA Encounter type: initial encounter Thiamine deficiency E51.9 (5) Laceration of forehead Encounter type: initial encounter Qualified Code(s): S01.81XA - Laceration without foreign body of other part of head, initial encounter
[2024-08-17] MEDS: ACETAMINOPHEN 325 MG TAB PO PRN (12:47)
--- NOTE | 2024-08-17 13:53 | Billing Data ---
Date of Service August 17, 2024 Coding Level of Care Code 49271 SUB INP/OBS CARE
--- NOTE | 2024-08-17 23:24 | Electrocardiogram Report ---
Test Reason : Blood Pressure : */* mmHG Vent. Rate : 60 BPM Atrial Rate : 60 BPM P-R Int : 224 ms QRS Dur : 98 ms QT Int : 424 ms P-R-T Axes : -14 -32 26 degrees QTcB Int : 424 ms AV dual-paced rhythm with prolonged AV conduction Nonspecific T wave abnormality Abnormal ECG When compared with ECG of 16-Aug-2024 10:02, Vent. rate has decreased by 2 bpm Confirmed by Rodrick Zaman ([id number]) on 08/17/2024 11:23:51 PM Referred By: REFERRED SELF Confirmed By: Rodrick Zaman
[2024-08-17] MEDS: OLANZapine 5 MG TABLET PO PRN (23:47)
[2024-08-18] MEDS: THIAMINE HCL 100 MG TAB PO SCH (09:11)
[2024-08-18] MEDS: METOPROLOL SUCC 50MG EXT REL TAB PO SCH (09:12)
--- NOTE | 2024-08-18 09:26 | Hospitalist Progress Note ---
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 discontinued Ativan here after received one dose on evening of 08/14 - Placed back on One-on-one 08/18, as per nursing patient was trying to leave the room - 1:1 lifted 08/18 1330 - Continue Sertraline 100 mg, Clonidine 0.1 mg HS, Zyprexa 10 mg HS, and Zyprexa 2.5 mg QAM - Zyprexa 5 mg PO/IM as needed for agitation (do not exceed additional 10 mg Zyprexa in 24 hr period, never administer with IM or IV benzos within 60 minutes) - can consider IV Depakote if agitation still not controlled - continue with supportive care - raising blinds during the day, closing at night, frequent re-orientation, contact with family/friends, explaining procedures/nursing care measures prior to physical contact, correct any hearing and visual impairments, walking patient around the halls, giving patient things to do - will need psychiatric clearance before returning back to [facility] - continue with telemetry as QT prolonging agents being used and IM/IV psychiatric medications as needed - repeat ECG on 08/16 with normal QTc (2) QT prolongation: Plan: resolved, falsely prolonged secondary to artifact on EKG - EKG on 08/16 showed QTc of 598 with artifact, repeat showed QTc of 424 - first EKG likely inaccurate due to artifact - pacemaker interpretation no acute abnormalities - olanzapine moderate risk for QT prolongation, sertraline low risk for QTc prolongation - Potassium WNL, recent magnesium 2.0 (3) Diabetes mellitus: Plan: Controlled with metformin at home; Held on admission - recent A1c 6.2% - ADA diet - With minimal insulin given and glucose stable, discontinue NovoLog 08/16 (4) Atrial fibrillation: Plan: history of A-fib on Eliquis - A-fib seen on telemetry - Continue Eliquis - No significant findings on echo - Metoprolol decreased from 50 to 12.5mg 08/17 due to AM hypotension likely caused by clonidine (5) Laceration of forehead: Plan: s/p mechanical fall 08/08 - Promote good hygiene/wound care with nursing - sutures removed 08/16 (6) Thiamine deficiency: Plan: B1 on admission low, 7 - Thiamine IV 500 mg Q8 x6 bags given - transition to 200 mg PO daily 08/18 Plan Chronic stable diagnoses: BPH - continue Flomax GERD - continue Pepcid VTE ppx: Eliquis Diet: DM type II diet Code status: full Dispo: PCU/telemetry, will discharge back to [facility] when acute psychiatric issues resolve/ cleared by psych - with needing one-on-one 08/18 will likely not discharge until 1330 08/19 as needs to be off one-on-one for 24 hours. Admission and Anticipated Discharge Date Admission Date: August 08, 2024 Supervising Physician Co-Signing Physician Notes REBEKAH Supervision Note: I personally saw and examined the patient. I verified all stoll points and agree with REBEKAH Beltran with the following exceptions and/or additions: S-Pt had some attempts to leave room last night and was given extra po zyprexa. Today is pleasant, cooperative, eating lunch, denies pain O- Vitals reviewed Gen: Alert awake , NAD HEENT: left forehead with laceration with sutures removed,scab in place, healing, no surrounding erythema or drainage CV-regular rate and rhythm, no murmurs Rubs Pulm: Clear to Auscultation Bilaterally Abd +BS soft NT ND A/U-49-ikwr-old male here with dementia, with aggressive behaviors, possibly from Ativan withdrawal vs thiamine deficiency/Wernicke's? B1 level came back low at 7-gave high dose IV thiamine at 500mg IV q8h x 6 doses with improvement--> now on po thiamine Continue increased dose of po zyprexa to 10mg and scheduled clonidine at bedtime, and continue morning dose of Zyprexa 2.5 mg Clonidine causing lower BPs-lowered dose of metoprolol so he can receive it to prevent rapid afib Continue to follow and remove 1:1 again today, encouraged staff to walk with pt and entertain him Subjective Patient seen at bedside and doing well with no acute events overnight. Patient is very pleasant. He was oriented to self and place today, which is improved from past few days in which patient was only oriented to self. He has no complaints. As per nursing staff, patient was trying to leave his room overnight so he was placed back on a one-on-one. He had no aggressive behaviors. Spoke with nursing staff to try to lift one-on-one and get patient walking the halls today. Trying to plan for him to return back to [facility] within 24 hours. Tele: A fib, paced rhythm, HR 70s. Physical Exam Physical Exam: The patient is awake, alert and oriented to self and place, well developed and well nourished, normocephalic, in no acute distress. Non-toxic appearing. HEENT- EOMI, mucous membranes moist. Hearing grossly intact. Scab across left forehead, healing. Heart-normal S1 and S2. No murmurs, rubs or gallops. Lungs-clear bilaterally, no respiratory distress, no accessory muscle use. Abdomen-normal bowel sounds and soft. No ascites noted. Non-tender. Extremities- no clubbing, cyanosis, or edema. Rheumatologic-normal range of motion. Psychiatric-normal affect. Results & Data Results & Data Vital Signs (Past 12 Hours) Vital Signs Temp Pulse Pulse Pulse Resp BP Pulse Ox 08/18/24 07:28 72 17 101/74 97 08/18/24 07:08 70 08/18/24 06:07 36.5 C 70 12 123/84 96 08/17/24 23:17 36.6 C 92 H 17 108/71 95 08/17/24 21:50 93 H O2 Del Method 08/18/24 07:28 Room Air 08/18/24 07:08 08/18/24 06:07 Room Air 08/17/24 23:17 Room Air 08/17/24 21:50 Laboratory Results Reviewed glucose PG Care Time/CCT Total # of Minutes Spent Total Time Spent with Patient: Total time spent is greater than 50% in coordination of care (as documented) at patient's floor/unit and/or counseling patient: Coding Level of Care Code None Diagnoses Alzheimer dementia with behavioral disturbance G30.9; F02.818 QT prolongation R94.31 Diabetes mellitus E11.9 Atrial fibrillation I48.91 Laceration of forehead S01.81XA Encounter type: initial encounter Thiamine deficiency E51.9 (5) Laceration of forehead Encounter type: initial encounter Qualified Code(s): S01.81XA - Laceration without foreign body of other part of head, initial encounter
--- NOTE | 2024-08-18 13:38 | Billing Data ---
Date of Service August 18, 2024 Coding Level of Care Code 74294 SUB INP/OBS CARE 11/18MIN
[2024-08-19 08:14] LABS: Hematocrit (blood only) 42.1 % (42.0-52.0); Hemoglobin 14.9 g/dl (14.0-18.0); Mean Corpuscular Hemoglobin 31.5 pg (25.0-34.0); Mean Corpuscular Hgb Conc 35.4 g/dL (32.0-36.0); Mean Platelet Volume 9.8 fL (9.4-12.4); Platelet Count 171 K/uL (130-400); RDW Coefficient of Variation 12.4 % (11.5-14.5); RDW Standard Deviation 40.7 fL (36.4-46.3); Red Blood Count 4.73 M/uL (4.70-6.10); White Blood Count 7.66 K/ul (4.8-10.8)
[2024-08-19 08:28] LABS: BUN Creatinine Ratio 21.7 (10-20); Calcium 9.9 mg/dl (8.6-10.3); Creatinine Clr Calc Pharmacy 71.2 ml/min; Potassium 3.9 mmol/L (3.5-5.1)
--- NOTE | 2024-08-19 11:16 | Hospitalist Progress Note ---
Date of Service August 19, 2024 Assessment & Plan (1) Alzheimer dementia with behavioral disturbance: Plan: encephalopathy/delirium superimposed on dementia with behavioral disturbance resides at [facility] dementia unit but was just admitted there 5 days prior to admission multiple episodes of sundowning/aggression; resolved - psychiatry consulted 08/10; further discussed with psych on 08/14, psych reeval 08/15 - discontinued home Seroquel, risperidone, Aricept, and Namenda - He was on ativan supervisor intermediates prior to admission with long term but this was stopped it seems? discontinued Ativan here after received one dose on evening of 08/14 - 1:1 lifted 08/18 1330 - Continue Sertraline 100 mg, Clonidine 0.1 mg HS, Zyprexa 10 mg HS, and Zyprexa 2.5 mg QAM - Zyprexa 5 mg PO/IM as needed for agitation (do not exceed additional 10 mg Zyprexa in 24 hr period, never administer with IM or IV benzos within 60 minutes) - can consider IV Depakote if agitation still not controlled - continue with supportive care - raising blinds during the day, closing at night, frequent re-orientation, contact with family/friends, explaining procedures/nursing care measures prior to physical contact, correct any hearing and visual impairments, walking patient around the halls, giving patient things to do - will need psychiatric clearance before returning back to [facility] - transfer off telemetry as patient has been stable, most recent QTc within normal limits (2) QT prolongation: Plan: resolved, falsely prolonged secondary to artifact on EKG - EKG on 08/16 showed QTc of 598 with artifact, repeat showed QTc of 424 - first EKG likely inaccurate due to artifact - pacemaker interpretation no acute abnormalities - olanzapine moderate risk for QT prolongation, sertraline low risk for QTc prolongation - Potassium WNL, recent magnesium 2.0 (3) Diabetes mellitus: Plan: Controlled with metformin at home; Held on admission - recent A1c 6.2% - ADA diet - With minimal insulin given and glucose stable, discontinue NovoLog 08/16 (4) Atrial fibrillation: Plan: history of A-fib on Eliquis - A-fib seen on telemetry - Continue Eliquis - No significant findings on echo - Metoprolol decreased from 50 to 12.5mg 08/17 due to AM hypotension likely caused by clonidine (5) Laceration of forehead: Plan: s/p mechanical fall 08/08 - Promote good hygiene/wound care with nursing - sutures removed 08/16 (6) Thiamine deficiency: Plan: B1 on admission low, 7 - Thiamine IV 500 mg Q8 x6 bags given - transition to 200 mg PO daily 08/18 Plan Chronic stable diagnoses: BPH - continue Flomax GERD - continue Pepcid VTE ppx: Eliquis Diet: DM type II diet Code status: full Dispo: downgrade off telemetry; will discharge back to [facility] when acute psychiatric issues resolve/ cleared by psych - 1:1 lifted 08/18 at 1330 - discussed with case management, [facility] unable to take the patient back over the weekend as they will need to come evaluate him themselves on Wednesday morning - plan for discharge Tuesday 08/21 Admission and Anticipated Discharge Date Admission Date: August 08, 2024 Supervising Physician Co-Signing Physician Notes PA Supervision Note: I personally saw and examined the patient. I verified all stoll points and agree with REBEKAH Beltran with the following exceptions and/or additions: S-patient feels well, no complaint O- Vitals reviewed Gen: Alert awake , NAD HEENT: left forehead with laceration with sutures removed,scab in place, healing, no surrounding erythema or drainage CV-regular rate and rhythm, no murmurs Rubs Pulm: Clear to Auscultation Bilaterally [id number]-old male here with dementia, with aggressive behaviors, possibly from Ativan withdrawal vs thiamine deficiency/Wernicke's? B1 level came back low at 7-gave high dose IV thiamine at 500mg IV q8h x 6 doses with improvement--> now on po thiamine Continue increased dose of po zyprexa to 10mg and scheduled clonidine at bedtime, and continue morning dose of Zyprexa 2.5 mg Clonidine causing lower BPs-lowered dose of metoprolol so he can receive it to prevent rapid afib Stable for discharge, his long term cannot take him back until at least Wednesday Subjective Patient seen at bedside and doing well. No acute events overnight. 1:1 removed at 1330 08/18. Oriented to self only. Denies headaches, dizziness, pain. Was planning to send patient back to [facility] today. Case management stated that [facility] will need to come and evaluate him before excepting him back. This is not able to happen until after the weekend. Spoke with patient's , Dominic, on the phone. Updated her regarding the plan. She called [facility] regarding placement in case [facility] will not accept him back. She has not yet received a call back from them. Tele: Paced rhythm, HR 67. Review of Systems Review of Systems: see HPI Physical Exam Physical Exam: The patient is awake, alert and oriented to self only, well developed and well nourished, normocephalic, in no acute distress. Non-toxic appearing. HEENT- EOMI, mucous membranes moist. Hearing grossly intact. Scab across left forehead, healing. Heart-normal S1 and S2. No murmurs, rubs or gallops. Lungs-clear bilaterally, no respiratory distress, no accessory muscle use. Abdomen-normal bowel sounds and soft. No ascites noted. Non-tender. Extremities- no clubbing, cyanosis, or edema. Rheumatologic-normal range of motion. Psychiatric-normal affect. Results & Data Results & Data Vital Signs (Past 12 Hours) Vital Signs Temp Pulse Resp BP Pulse Ox O2 Del Method 08/19/24 09:41 Room Air 08/19/24 07:37 36.6 C 67 18 164/95 H 93 Room Air 08/19/24 04:25 36.9 C 74 18 130/78 97 Room Air Laboratory Results Reviewed CBC, BMP PG Care Time/CCT Total # of Minutes Spent Total Time Spent with Patient: Total time spent is greater than 50% in coordination of care (as documented) at patient's floor/unit and/or counseling patient: Coding Level of Care Code None Diagnoses Alzheimer dementia with behavioral disturbance G30.9; F02.818 QT prolongation R94.31 Diabetes mellitus E11.9 Atrial fibrillation I48.91 Laceration of forehead S01.81XA Encounter type: initial encounter Thiamine deficiency E51.9 (5) Laceration of forehead Encounter type: initial encounter Qualified Code(s): S01.81XA - Laceration without foreign body of other part of head, initial encounter
--- NOTE | 2024-08-19 16:32 | Billing Data ---
Date of Service August 19, 2024 Coding Level of Care Code 64451 SUB INP/OBS CARE
--- NOTE | 2024-08-20 12:00 | Hospitalist Progress Note ---
Date of Service August 20, 2024 Assessment & Plan (1) Alzheimer dementia with behavioral disturbance: Plan: encephalopathy/delirium superimposed on dementia with behavioral disturbance resides at [facility] dementia unit but was just admitted there 5 days prior to admission multiple episodes of sundowning/aggression; resolved - psychiatry consulted - discontinued home Seroquel, risperidone, Aricept, and Namenda from home - recent QtC WNL - 1:1 lifted 08/18 1330 - Continue Sertraline 100 mg, Clonidine 0.1 mg HS, Zyprexa 10 mg HS, and Zyprexa 2.5 mg QAM - Zyprexa 5 mg PO prn discontinued - continue with supportive care - raising blinds during the day, closing at night, frequent re-orientation, contact with family/friends, explaining procedures/nursing care measures prior to physical contact, correct any hearing and visual impairments, walking patient around the halls, giving patient things to do - will need psychiatric clearance before returning back to [facility] (2) Diabetes mellitus: Plan: Controlled with metformin at home; Held on admission - recent A1c 6.2% - ADA diet - With minimal insulin given and glucose stable, discontinue NovoLog 08/16 (3) Atrial fibrillation: Plan: history of A-fib on Eliquis - A-fib seen on telemetry - Continue Eliquis - No significant findings on echo - Metoprolol decreased from 50 to 12.5mg due to AM hypotension likely caused by clonidine (4) Laceration of forehead: Plan: s/p mechanical fall 08/08 - healing - sutures removed 08/16 (5) Thiamine deficiency: Plan: B1 on admission low, 7 - Thiamine IV 500 mg Q8 x6 bags given - transition to 200 mg PO daily 08/18 Plan Chronic stable diagnoses: BPH - continue Flomax GERD - continue Pepcid VTE ppx: Eliquis Diet: DM type II diet Code status: full Dispo: Med Surg; will discharge back to [facility] now that acute psychiatric issues resolved - discussed with case management, [facility] unable to take the patient back over the weekend as they will need to come evaluate him themselves on Wednesday morning - plan for discharge Tuesday 08/21 Admission and Anticipated Discharge Date Admission Date: August 08, 2024 Supervising Physician Co-Signing Physician Notes PA Supervision Note: I personally saw and examined the patient. I verified all stoll points and agree w kirill Beltran with the following exceptions and/or additions: S-patient feels well, no complaint, very pleasant but talking about some things unrelated to line of questioning. Tells me he had his first cup of coffee ever in his life today O- Vitals reviewed Gen: Alert awake, oriented to person , NAD HEENT: left forehead with laceration with sutures removed,scab in place, healing, no surrounding erythema or drainage A/[id number]-old male here with dementia, with aggressive behaviors, possibly from Ativan withdrawal vs thiamine deficiency/Wernicke's? B1 level came back low at 7-gave high dose IV thiamine at 500mg IV q8h x 6 doses with improvement--> now on po thiamine Continue increased dose of po zyprexa to 10mg and scheduled clonidine at bedtime, and continue morning dose of Zyprexa 2.5 mg Clonidine causing lower BPs-lowered dose of metoprolol so he can receive it to prevent rapid afib Stable for discharge, [facility] until at least Wednesday Subjective Patient seen at bedside, sleeping throughout day likely due to extra dose of Zyprexa given last night. As per nursing, patient was agitated at bedtime last night. They gave him his scheduled 10 mg Zyprexa along with a 5mg PO dose. With possible return to [facility] tomorrow, will discontinue prn Zyprexa as patient has scheduled AM and PM doses. Notified nursing staff to promote good sleep wake cycles, get him OOB, and walking if possible. Review of Systems Review of Systems: see HPI Physical Exam Physical Exam: The patient is sleeping, lethargic, well developed and well nourished, normocephalic, in no acute distress. Non-toxic appearing. HEENT- Scab across left forehead, healing. Heart-normal S1 and S2. No murmurs, rubs or gallops. Lungs-clear bilaterally, no respiratory distress, no accessory muscle use. Abdomen-normal bowel sounds and soft. No ascites noted. Extremities- no clubbing, cyanosis, or edema. Results & Data Results & Data Vital Signs (Past 12 Hours) Vital Signs Temp Pulse Resp BP Pulse Ox O2 Del Method 08/20/24 07:24 36.5 C 60 16 131/85 99 Room Air PG Care Time/CCT Total # of Minutes Spent Total Time Spent with Patient: Total time spent is greater than 50% in coordination of care (as documented) at patient's floor/unit and/or counseling patient: Coding Level of Care Code 44565 SUB INP/OBS CARE 11/18MIN Diagnoses Alzheimer dementia with behavioral disturbance G30.9; F02.818 Diabetes mellitus E11.9 Atrial fibrillation I48.91 Laceration of forehead S01.81XA Encounter type: initial encounter Thiamine deficiency E51.9 (4) Laceration of forehead Encounter type: initial encounter Qualified Code(s): S01.81XA - Laceration without foreign body of other part of head, initial encounter
--- NOTE | 2024-08-20 13:12 | Billing Data ---
Date of Service August 20, 2024 Coding Level of Care Code 26128 SUB INP/OBS CARE
--- NOTE | 2024-08-21 19:44 | Hospitalist Progress Note ---
Date of Service August 21, 2024 Assessment & Plan (1) Alzheimer dementia with behavioral disturbance: Plan: encephalopathy/delirium superimposed on dementia with behavioral disturbance resides at [facility] dementia unit but was just admitted there 5 days prior to admission multiple episodes of sundowning/aggression; resolved - psychiatry consulted - discontinued home Seroquel, risperidone, Aricept, and Namenda from home - recent QtC WNL - 1:1 lifted 08/18 1330 - Continue Sertraline 100 mg, Clonidine 0.1 mg HS, Zyprexa 10 mg HS, and Zyprexa 2.5 mg QAM - Zyprexa 5 mg PO prn discontinued - continue with supportive care - raising blinds during the day, closing at night, frequent re-orientation, contact with family/friends, explaining procedures/nursing care measures prior to physical contact, correct any hearing and visual impairments, walking patient around the halls, giving patient things to do - will need psychiatric clearance before returning back to [facility] Anticipate discharge on 08/22 (2) Diabetes mellitus: Plan: Controlled with metformin at home; Held on admission - recent A1c 6.2% - ADA diet - With minimal insulin given and glucose stable, discontinue NovoLog 08/16 (3) Atrial fibrillation: Plan: history of A-fib on Eliquis - A-fib seen on telemetry - Continue Eliquis - No significant findings on echo - Metoprolol decreased from 50 to 12.5mg due to AM hypotension likely caused by clonidine (4) Laceration of forehead: Plan: s/p mechanical fall 08/08 - healing - sutures removed 08/16 (5) Thiamine deficiency: Plan: B1 on admission low, 7 - Thiamine IV 500 mg Q8 x6 bags given - transition to 200 mg PO daily 08/18 Plan Chronic stable diagnoses: BPH - continue Flomax GERD - continue Pepcid VTE ppx: Eliquis Diet: DM type II diet Code status: full Dispo: Med Surg; will discharge back to [facility] now that acute psychiatric issues resolved - discussed with case management, [facility] unable to take the patient back over the weekend as they will need to come evaluate him themselves on Wednesday morning - plan for discharge Tuesday 08/21 Admission and Anticipated Discharge Date Admission Date: August 08, 2024 Subjective Patient reports no new symptoms. Review of Systems Review of Systems: All systems reviewed & are unremarkable except as noted in HPI & below Physical Exam Physical Exam: The patient is awake, and well nourished, normocephalic, in no acute distress. Non-toxic appearing. HEENT- Scab across left forehead, healing. Heart-normal S1 and S2. No murmurs, rubs or gallops. Lungs-clear bilaterally, no respiratory distress, no accessory muscle use. Abdomen-normal bowel sounds and soft. No ascites noted. Extremities- no clubbing, cyanosis, or edema. Results & Data Results & Data Vital Signs (Past 12 Hours) Vital Signs Temp Pulse Resp BP Pulse Ox O2 Del Method 08/21/24 14:38 36.5 C 63 18 156/75 H 97 Room Air 08/21/24 07:48 36.6 C 60 16 150/88 H 97 Room Air PG Care Time/CCT Total # of Minutes Spent Total Time Spent with Patient: Total time spent is greater than 50% in coordination of care (as documented) at patient's floor/unit and/or counseling patient: Coding Level of Care Code 80260 SUB INP/OBS CARE 2/35MIN Diagnoses Alzheimer dementia with behavioral disturbance G30.9; F02.818 Diabetes mellitus E11.9 Atrial fibrillation I48.91 Laceration of forehead S01.81XA Encounter type: initial encounter Thiamine deficiency E51.9 (4) Laceration of forehead Encounter type: initial encounter Qualified Code(s): S01.81XA - Laceration without foreign body of other part of head, initial encounter
[2024-08-21] MEDS: OLANZapine ZYDIS 5 MG ORALLY DIS. TAB PO ONE (22:14)
[2024-08-22 06:16] LABS: Hematocrit (blood only) 39.5 % (42.0-52.0); Hemoglobin 14.1 g/dl (14.0-18.0); Mean Corpuscular Hemoglobin 31.8 pg (25.0-34.0); Mean Corpuscular Hgb Conc 35.7 g/dL (32.0-36.0); Mean Platelet Volume 9.9 fL (9.4-12.4); Platelet Count 144 K/uL (130-400); RDW Coefficient of Variation 12.5 % (11.5-14.5); RDW Standard Deviation 40.9 fL (36.4-46.3); Red Blood Count 4.44 M/uL (4.70-6.10); White Blood Count 6.43 K/ul (4.8-10.8)
[2024-08-22 06:20] LABS: Calcium 9.2 mg/dl (8.6-10.3); Creatinine Clr Calc Pharmacy 80.3 ml/min; Potassium 4.2 mmol/L (3.5-5.1)
--- NOTE | 2024-08-22 15:19 | Psychiatric Progress Note ---
Date of Service August 22, 2024 Impression / Recommendations Impression 74 yo man with dementia with behavioral disturbance admitted medically for concern for metabolic encephalopathy and increased aggression. Psychiatry consulted for recommendation for dementia with agitation. Diagnostically consistent with dementia with behavioral disturbance. A: From psychiatric standpoint he appears to be much improved from initial behaviors leading to hospitalization and seems stable for return to [facility]. Suspect delirium was driving some of the agitation and changes and seems to have resolved. He has not required any recent IM medications per chart review, shows no evidence of EPS or visible medication side effects on exam today and reports upbeat and happy mood. Would continue with psychiatric medications for dementia with behavioral disturbance as ordered. Overall, I spent a total of 25 minutes with this case including review of chart records, nursing report, review of lab work, direct evaluation of the patient at bedside, counseling the patient, discussion of the patient with the hospitalist provider, discussion with the psychiatric liaison during clinical rounds, and documentation in the electronic health record. (1) Alzheimer dementia with behavioral disturbance: (2) Metabolic encephalopathy: Plan -Continue current psychiatric medications: * sertraline 100mg qd * clonidine 0.1mg HS (could consider discontinuation in the future if hypotension develops and pending ongoing behavioral stability) * olanzapine 2.5mg qAM and 10mg HS (consider dose reduction in the future pending ongoing behavioral stability, goal using lowest dose possible to prevent agitation) Interval History Identifying Information 74 yo man with dementia with behavioral disturbance admitted medically for concern for metabolic encephalopathy and increased aggression. Psychiatry consulted for recommendation for dementia with agitation Chief Complaint "Pretty good". Subjective Subjective Patient was seen & assessed and interval progress reviewed. Has not required any recent IM medication. Has been in behavioral control per chart review. Seems to be tolerating psychiatric medications well. Today reports his mood is "pretty good", pleasant, tells me he feels "much happier". Physical Exam Psychiatric Orientation: alert and oriented to person; + not oriented to place and + not oriented to time Apperance: appropriately dressed and appropriately groomed Eye Contact: good eye contact Motor Behavior: no abnormal motor movements Speech: normal rate/rhythm/volume of speech Affect: euthymic affect Mood: no depressed mood, no anxious mood, no irritable mood and no angry mood Thought Process: + looseness of associations Thought Content: reality based without delusions Suicidal Thoughts: denies suicidal thoughts Homicidal Thoughts: denies homicidal thoughts Hallucinations: no auditory hallucinations and no visual hallucinations Cognition: language grossly intact; + recent memory not intact and + attention not intact Insight: + impaired insight Judgment: + impaired judgement Vital Signs (Past 24 Hours) Last Vital Signs Temp 36.8 C 08/22/24 12:13 Pulse 70 08/22/24 12:13 Resp 18 08/22/24 12:13 BP 120/84 08/22/24 12:13 Pulse Ox 98 08/22/24 12:13 O2 Del Method Room Air 08/22/24 12:13 Results & Data ([facility]) Laboratory Results Laboratory Results - last 24 hr 08/22/24 05:40 WBC 6.43 RBC 4.44 L Hgb 14.1 Hct 39.5 L MCV 89.0 MCH 31.8 MCHC 35.7 RDW Std Deviation 40.9 RDW Coeff of Carter 12.5 Plt Count 144 MPV 9.9 Sodium 139 Potassium 4.2 Chloride 108 H Carbon Dioxide 26 Anion Gap 5 BUN 16 Creatinine 0.94 Est Cr Clr Drug Dosing 80.3 eGFR 86.13 BUN/Creatinine Ratio 17.0 Glucose 109 H Calcium 9.2 Current Inpatient Medications Current Inpatient Medications: Current Inpatient Medications Acetaminophen (Acetaminophen 325 Mg Tab) 650 mg PO Q4H PRN PRN Reason: Pain or Fever Stop: 09/07/24 16:04 Last Admin: 08/17/24 12:47 Dose: 650 mg Apixaban (Apixaban 5 Mg Tablet) 5 mg PO BID RIGO Stop: 09/08/24 08:59 Last Admin: 08/22/24 12:40 Dose: 5 mg Clonidine HCl (Clonidine Hcl 0.1 Mg Tab) 0.1 mg PO HS RIGO Stop: 09/14/24 20:59 Last Admin: 08/21/24 20:17 Dose: 0.1 mg Dextrose (Dextrose 50% 50 Ml Syringe) 25 - 50 ml IV UD PRN; Protocol PRN Reason: Hypoglycemia Protocol Stop: 09/07/24 16:04 Famotidine (Famotidine 20 Mg Tab) 20 mg PO BID RIGO Stop: 09/07/24 20:59 Last Admin: 08/22/24 14:02 Dose: 20 mg Glucagon (Glucagon For Inj 1 Mg Vial) 1 mg SQ UD PRN; Protocol PRN Reason: Hypoglycemia Protocol Stop: 09/07/24 16:04 Glucose (Glucose 40% Gel 15 Gm Tube) 15 - 30 gm PO UD PRN; Protocol PRN Reason: Hypoglycemia Protocol Stop: 09/07/24 16:04 Glucose (Glucose 10 Tab/Tube) 4 - 8 tab PO UD PRN; Protocol PRN Reason: Hypoglycemia Treatment Stop: 09/07/24 16:04 Metoprolol Succinate (Metoprolol Succ 50mg Ext Rel Tab) 12.5 mg PO QAM RIGO Stop: 09/17/24 08:59 Last Admin: 08/22/24 12:41 Dose: 12.5 mg Miscellaneous (Carbohydrates For Hypoglycemia ) 15 - 30 gm PO UD PRN PRN Reason: Hypoglycemia Protocol Stop: 09/07/24 16:04 Olanzapine (Olanzapine 10 Mg Tab) 10 mg PO HS [facility] Stop: 09/14/24 20:59 Last Admin: 08/21/24 20:17 Dose: 10 mg Olanzapine (Olanzapine 2.5 Mg Tab) 2.5 mg PO QAM [facility] Stop: 09/16/24 08:59 Last Admin: 08/22/24 12:41 Dose: 2.5 mg Ondansetron HCl (Ondansetron Inj 2 Mg/Ml 2 Ml Vial) 4 mg IV Q6H PRN PRN Reason: Nausea Stop: 09/07/24 16:04 Sertraline HCl (Sertraline Hcl 100 Mg Tablet) [facility] Stop: 09/13/24 09:44 Last Admin: 08/22/24 12:41 Dose: 100 mg Simvastatin (Simvastatin 40 Mg Tab) 40 mg PO PM [facility]IGO Stop: 09/07/24 20:59 Last Admin: 08/21/24 20:17 Dose: 40 mg Tamsulosin HCl (Tamsulosin Hcl 0.4 Mg Cap) 0.4 mg PO HS [facility] Stop: 09/07/24 20:59 Last Admin: 08/21/24 20:17 Dose: 0.4 mg Thiamine HCl (Thiamine Hcl 100 Mg Tab) 200 mg PO QAM [facility] Stop: 09/17/24 08:59 Last Admin: 08/22/24 12:40 Dose: 200 mg
--- NOTE | 2024-08-22 22:18 | Hospitalist Progress Note ---
Date of Service August 22, 2024 Assessment & Plan (1) Alzheimer dementia with behavioral disturbance: Plan: encephalopathy/delirium superimposed on dementia with behavioral disturbance resides at [facility] dementia unit but was just admitted there 5 days prior to admission multiple episodes of sundowning/aggression; resolved - psychiatry consulted - discontinued home Seroquel, risperidone, Aricept, and Namenda from home - recent QtC WNL - 1:1 lifted 08/18 1330 - Continue Sertraline 100 mg, Clonidine 0.1 mg HS, Zyprexa 10 mg HS, and Zyprexa 2.5 mg QAM - Zyprexa 5 mg PO prn discontinued - continue with supportive care - raising blinds during the day, closing at night, frequent re-orientation, contact with family/friends, explaining procedures/nursing care measures prior to physical contact, correct any hearing and visual impairments, walking patient around the halls, giving patient things to do - will need psychiatric clearance before returning back to [facility] Anticipate discharge once placement. Patient appears calm. Reviewed blood work on 08/22 (2) Diabetes mellitus: Plan: Controlled with metformin at home; Held on admission - recent A1c 6.2% - ADA diet - With minimal insulin given and glucose stable, discontinue NovoLog 08/16 (3) Atrial fibrillation: Plan: history of A-fib on Eliquis - A-fib seen on telemetry - Continue Eliquis - No significant findings on echo - Metoprolol decreased from 50 to 12.5mg due to AM hypotension likely caused by clonidine (4) Laceration of forehead: Plan: s/p mechanical fall 08/08 - healing - sutures removed 08/16 (5) Thiamine deficiency: Plan: B1 on admission low, 7 - Thiamine IV 500 mg Q8 x6 bags given - transition to 200 mg PO daily 08/18 Plan Chronic stable diagnoses: BPH - continue Flomax GERD - continue Pepcid VTE ppx: Eliquis Diet: DM type II diet Code status: full Dispo: Med Surg; will discharge back to [facility] now that acute psychiatric issues resolved - discussed with case management, [facility] unable to take the patient back over the weekend as they will need to come evaluate him themselves on Wednesday morning - plan for discharge Tuesday 08/21 Admission and Anticipated Discharge Date Admission Date: August 08, 2024 Subjective Patient appears to be calm. He has no new complaints. Review of Systems Review of Systems: All systems reviewed & are unremarkable except as noted in HPI & below Physical Exam Physical Exam: The patient is awake, and well nourished, normocephalic, in no acute distress. Non-toxic appearing. HEENT- Scab across left forehead, healing. Heart-normal S1 and S2. No murmurs, rubs or gallops. Lungs-clear bilaterally, no respiratory distress, no accessory muscle use. Abdomen-normal bowel sounds and soft. No ascites noted. Extremities- no clubbing, cyanosis, or edema. Results & Data Results & Data Vital Signs (Past 12 Hours) Vital Signs Temp Pulse Pulse Resp BP BP Pulse Ox 08/22/24 19:26 36.7 C 76 15 95/68 L 97 08/22/24 12:13 36.8 C 70 18 120/84 98 O2 Del Method 08/22/24 19:26 Room Air 08/22/24 12:13 Room Air PG Care Time/CCT Total # of Minutes Spent Total Time Spent with Patient: Total time spent is greater than 50% in coordination of care (as documented) at patient's floor/unit and/or counseling patient: Coding Level of Care Code 56132 SUB INP/OBS CARE 2/35MIN Diagnoses Alzheimer dementia with behavioral disturbance G30.9; F02.818 Diabetes mellitus E11.9 Atrial fibrillation I48.91 Laceration of forehead S01.81XA Encounter type: initial encounter Thiamine deficiency E51.9 (4) Laceration of forehead Encounter type: initial encounter Qualified Code(s): S01.81XA - Laceration without foreign body of other part of head, initial encounter
--- NOTE | 2024-08-23 20:59 | Hospitalist Progress Note ---
Date of Service August 23, 2024 Assessment & Plan (1) Alzheimer dementia with behavioral disturbance: Plan: encephalopathy/delirium superimposed on dementia with behavioral disturbance resides at [facility] dementia unit but was just admitted there 5 days prior to admission multiple episodes of sundowning/aggression; resolved - psychiatry consulted - discontinued home Seroquel, risperidone, Aricept, and Namenda from home - recent QtC WNL - 1:1 lifted 08/18 1330 - Continue Sertraline 100 mg, Clonidine 0.1 mg HS, Zyprexa 10 mg HS, and Zyprexa 2.5 mg QAM - Zyprexa 5 mg PO prn discontinued - continue with supportive care - raising blinds during the day, closing at night, frequent re-orientation, contact with family/friends, explaining procedures/nursing care measures prior to physical contact, correct any hearing and visual impairments, walking patient around the halls, giving patient things to do - will need psychiatric clearance before returning back to [facility] Anticipate discharge once placement. Patient appears calm. Reviewed blood work on 08/22 (2) Diabetes mellitus: Plan: Controlled with metformin at home; Held on admission - recent A1c 6.2% - ADA diet - With minimal insulin given and glucose stable, discontinue NovoLog 08/16 (3) Atrial fibrillation: Plan: history of A-fib on Eliquis - A-fib seen on telemetry - Continue Eliquis - No significant findings on echo - Metoprolol decreased from 50 to 12.5mg due to AM hypotension likely caused by clonidine (4) Laceration of forehead: Plan: s/p mechanical fall 08/08 - healing - sutures removed 08/16 (5) Thiamine deficiency: Plan: B1 on admission low, 7 - Thiamine IV 500 mg Q8 x6 bags given - transition to 200 mg PO daily 08/18 Plan Chronic stable diagnoses: BPH - continue Flomax GERD - continue Pepcid VTE ppx: Eliquis Diet: DM type II diet Code status: full Dispo: Med Surg; will discharge back to [facility] now that acute psychiatric issues resolved - discussed with case management, [facility] unable to take the patient back over the weekend as they will need to come evaluate him themselves on Wednesday morning - plan for discharge Tuesday 08/21 Admission and Anticipated Discharge Date Admission Date: August 08, 2024 Subjective Patient appears calm. Review of Systems Review of Systems: All systems reviewed & are unremarkable except as noted in HPI & below Physical Exam Physical Exam: The patient is awake, and well nourished, normocephalic, in no acute distress. Non-toxic appearing. HEENT- Scab across left forehead, healing. Heart-normal S1 and S2. No murmurs, rubs or gallops. Lungs-clear bilaterally, no respiratory distress, no accessory muscle use. Abdomen-normal bowel sounds and soft. No ascites noted. Extremities- no clubbing, cyanosis, or edema. Results & Data Results & Data Vital Signs (Past 12 Hours) Vital Signs Temp Pulse Resp BP Pulse Ox O2 Del Method 08/23/24 20:01 36.5 C 72 18 123/73 94 Room Air PG Care Time/CCT Total # of Minutes Spent Total Time Spent with Patient: Total time spent is greater than 50% in coordination of care (as documented) at patient's floor/unit and/or counseling patient: Coding Level of Care Code 84691 SUB INP/OBS CARE 11/18MIN Diagnoses Alzheimer dementia with behavioral disturbance G30.9; F02.818 Diabetes mellitus E11.9 Atrial fibrillation I48.91 Laceration of forehead S01.81XA Encounter type: initial encounter Thiamine deficiency E51.9 (4) Laceration of forehead Encounter type: initial encounter Qualified Code(s): S01.81XA - Laceration without foreign body of other part of head, initial encounter
[2024-08-23] MEDS: LORazepam 0.5 MG TAB PO STA (23:29)
[2024-08-24] MEDS: OLANZAPINE 2.5 MG TAB PO ONE (11:28)
[2024-08-24] MEDS: LORazepam 0.5 MG TAB PO STA (22:19)
--- NOTE | 2024-08-24 22:50 | Hospitalist Progress Note ---
Date of Service August 24, 2024 Assessment & Plan (1) Alzheimer dementia with behavioral disturbance: Plan: encephalopathy/delirium superimposed on dementia with behavioral disturbance resides at [facility] dementia unit but was just admitted there 5 days prior to admission multiple episodes of sundowning/aggression; resolved - psychiatry consulted - discontinued home Seroquel, risperidone, Aricept, and Namenda from home - recent QtC WNL - 1:1 lifted 08/18 1330 - Continue Sertraline 100 mg, Clonidine 0.1 mg HS, Zyprexa 10 mg HS, and Zyprexa 2.5 mg QAM - Zyprexa 5 mg PO prn discontinued - continue with supportive care - raising blinds during the day, closing at night, frequent re-orientation, contact with family/friends, explaining procedures/nursing care measures prior to physical contact, correct any hearing and visual impairments, walking patient around the halls, giving patient things to do - will need psychiatric clearance before returning back to [facility] Anticipate discharge once placement. Patient appears calm. Reviewed blood work on 08/22 Ordered additional zyprexa on 08/24 (2) Diabetes mellitus: Plan: Controlled with metformin at home; Held on admission - recent A1c 6.2% - ADA diet - With minimal insulin given and glucose stable, discontinue NovoLog 08/16 (3) Atrial fibrillation: Plan: history of A-fib on Eliquis - A-fib seen on telemetry - Continue Eliquis - No significant findings on echo - Metoprolol decreased from 50 to 12.5mg due to AM hypotension likely caused by clonidine (4) Laceration of forehead: Plan: s/p mechanical fall 08/08 - healing - sutures removed 08/16 (5) Thiamine deficiency: Plan: B1 on admission low, 7 - Thiamine IV 500 mg Q8 x6 bags given - transition to 200 mg PO daily 08/18 Plan Chronic stable diagnoses: BPH - continue Flomax GERD - continue Pepcid VTE ppx: Eliquis Diet: DM type II diet Code status: full Dispo: Med Surg; will discharge back to [facility] now that acute psychiatric issues resolved - discussed with case management, [facility] unable to take the patient back over the weekend as they will need to come evaluate him themselves on Wednesday morning - plan for discharge Tuesday 08/21 Admission and Anticipated Discharge Date Admission Date: August 08, 2024 Subjective Nurse reports patient has been getting out of bed multiple times today Review of Systems Review of Systems: All systems reviewed & are unremarkable except as noted in HPI & below Physical Exam Physical Exam: The patient is awake, and well nourished, normocephalic, in no acute distress. Non-toxic appearing. HEENT- Scab across left forehead, healing. Heart-normal S1 and S2. No murmurs, rubs or gallops. Lungs-clear bilaterally, no respiratory distress, no accessory muscle use. Abdomen-normal bowel sounds and soft. No ascites noted. Extremities- no clubbing, cyanosis, or edema. Results & Data Results & Data Vital Signs (Past 12 Hours) Vital Signs Temp Pulse Resp BP Pulse Ox O2 Del Method 08/24/24 20:08 36.9 C 61 18 147/83 H 99 Room Air PG Care Time/CCT Total # of Minutes Spent Total Time Spent with Patient: Total time spent is greater than 50% in coordination of care (as documented) at patient's floor/unit and/or counseling patient: Coding Level of Care Code 23225 SUB INP/OBS CARE 2/35MIN Diagnoses Alzheimer dementia with behavioral disturbance G30.9; F02.818 Diabetes mellitus E11.9 Atrial fibrillation I48.91 Laceration of forehead S01.81XA Encounter type: initial encounter Thiamine deficiency E51.9 (4) Laceration of forehead Encounter type: initial encounter Qualified Code(s): S01.81XA - Laceration without foreign body of other part of head, initial encounter
[2024-08-25] MEDS: LORazepam 2 MG/1 ML VIAL IV STA (22:00)
--- NOTE | 2024-08-26 08:47 | Hospitalist Progress Note ---
Date of Service August 25, 2024 Assessment & Plan (1) Alzheimer dementia with behavioral disturbance: Plan: encephalopathy/delirium superimposed on dementia with behavioral disturbance resides at [facility] dementia unit but was just admitted there 5 days prior to admission multiple episodes of sundowning/aggression; resolved - psychiatry consulted - discontinued home Seroquel, risperidone, Aricept, and Namenda from home - recent QtC WNL - 1:1 lifted 08/18 1330 - Continue Sertraline 100 mg, Clonidine 0.1 mg HS, Zyprexa 10 mg HS, and Zyprexa 2.5 mg QAM - Zyprexa 5 mg PO prn discontinued - continue with supportive care - raising blinds during the day, closing at night, frequent re-orientation, contact with family/friends, explaining procedures/nursing care measures prior to physical contact, correct any hearing and visual impairments, walking patient around the halls, giving patient things to do - will need psychiatric clearance before returning back to [facility] Anticipate discharge once placement. Patient appears calm. Reviewed blood work on 08/22 Ordered additional zyprexa on 08/24 Stable on 08/25 (2) Diabetes mellitus: Plan: Controlled with metformin at home; Held on admission - recent A1c 6.2% - ADA diet - With minimal insulin given and glucose stable, discontinue NovoLog 08/16 (3) Atrial fibrillation: Plan: history of A-fib on Eliquis - A-fib seen on telemetry - Continue Eliquis - No significant findings on echo - Metoprolol decreased from 50 to 12.5mg due to AM hypotension likely caused by clonidine (4) Laceration of forehead: Plan: s/p mechanical fall 08/08 - healing - sutures removed 08/16 (5) Thiamine deficiency: Plan: B1 on admission low, 7 - Thiamine IV 500 mg Q8 x6 bags given - transition to 200 mg PO daily 08/18 Plan Chronic stable diagnoses: BPH - continue Flomax GERD - continue Pepcid VTE ppx: Eliquis Diet: DM type II diet Code status: full Dispo: Med Surg; will discharge back to [facility] now that acute psychiatric issues resolved - discussed with case management, [facility] unable to take the patient back over the weekend as they will need to come evaluate him themselves on Wednesday morning - plan for discharge Tuesday 08/21 Admission and Anticipated Discharge Date Admission Date: August 08, 2024 Subjective Patient is comfortable. Review of Systems Review of Systems: All systems reviewed & are unremarkable except as noted in HPI & below Physical Exam Physical Exam: The patient is awake, and well nourished, normocephalic, in no acute distress. Non-toxic appearing. HEENT- Scab across left forehead, healing. Heart-normal S1 and S2. No murmurs, rubs or gallops. Lungs-clear bilaterally, no respiratory distress, no accessory muscle use. Abdomen-normal bowel sounds and soft. No ascites noted. Extremities- no clubbing, cyanosis, or edema. Results & Data Results & Data Vital Signs (Past 12 Hours) Vital Signs Temp Pulse Resp BP Pulse Ox O2 Del Method 08/26/24 08:00 36.4 C L 60 17 171/95 H 96 Room Air 08/25/24 21:38 36.8 C 60 18 142/82 H 96 Room Air PG Care Time/CCT Total # of Minutes Spent Total Time Spent with Patient: Total time spent is greater than 50% in coordination of care (as documented) at patient's floor/unit and/or counseling patient: Coding Level of Care Code 18467 SUB INP/OBS CARE 11/18MIN Diagnoses Alzheimer dementia with behavioral disturbance G30.9; F02.818 Diabetes mellitus E11.9 Atrial fibrillation I48.91 Laceration of forehead S01.81XA Encounter type: initial encounter Thiamine deficiency E51.9 (4) Laceration of forehead Encounter type: initial encounter Qualified Code(s): S01.81XA - Laceration without foreign body of other part of head, initial encounter
[2024-08-26] MEDS: OLANZAPINE 2.5 MG TAB PO SCH (16:12)
[2024-08-26] MEDS: OLANZAPINE 2.5 MG TAB PO PRN (19:21)
[2024-08-26] MEDS: LORazepam 0.5 MG TAB PO STA ×3 (20:50→23:00)
[2024-08-26] MEDS: OLANZAPINE 2.5 MG TAB PO STA (23:00)
[2024-08-26] MEDS: OLANZapine 10 MG/2.1 ML SDV IM STA (23:59)
--- NOTE | 2024-08-27 07:45 | Hospitalist Progress Note ---
Date of Service August 26, 2024 Assessment & Plan (1) Alzheimer dementia with behavioral disturbance: Plan: encephalopathy/delirium superimposed on dementia with behavioral disturbance resides at [facility] dementia unit but was just admitted there 5 days prior to admission multiple episodes of sundowning/aggression; resolved - psychiatry consulted - discontinued home Seroquel, risperidone, Aricept, and Namenda from home - recent QtC WNL - 1:1 lifted 08/18 1330 - Continue Sertraline 100 mg, Clonidine 0.1 mg HS, Zyprexa 10 mg HS, and Zyprexa 2.5 mg QAM - Zyprexa 5 mg PO prn discontinued - continue with supportive care - raising blinds during the day, closing at night, frequent re-orientation, contact with family/friends, explaining procedures/nursing care measures prior to physical contact, correct any hearing and visual impairments, walking patient around the halls, giving patient things to do - will need psychiatric clearance before returning back to [facility] Anticipate discharge once placement. Patient appears calm. Reviewed blood work on 08/22 Ordered additional zyprexa on 08/24 Stable on 08/26 Increased Zyprexa. (2) Diabetes mellitus: Plan: Controlled with metformin at home; Held on admission - recent A1c 6.2% - ADA diet - With minimal insulin given and glucose stable, discontinue NovoLog 08/16 (3) Atrial fibrillation: Plan: history of A-fib on Eliquis - A-fib seen on telemetry - Continue Eliquis - No significant findings on echo - Metoprolol decreased from 50 to 12.5mg due to AM hypotension likely caused by clonidine (4) Laceration of forehead: Plan: s/p mechanical fall 08/08 - healing - sutures removed 08/16 (5) Thiamine deficiency: Plan: B1 on admission low, 7 - Thiamine IV 500 mg Q8 x6 bags given - transition to 200 mg PO daily 08/18 Plan Chronic stable diagnoses: BPH - continue Flomax GERD - continue Pepcid VTE ppx: Eliquis Diet: DM type II diet Code status: full Dispo: Med Surg; will discharge back to [facility] now that acute psychiatric issues resolved - discussed with case management, [facility] unable to take the patient back over the weekend as they will need to come evaluate him themselves on Wednesday morning - plan for discharge [place] 10/28 Admission and Anticipated Discharge Date Admission Date: August 08, 2024 Subjective Patient had a difficult night and was given ativan. His nurse reports he has poor vision. Patient reports bathroom door is a refrigerator. Physical Exam Physical Exam: The patient is awake, and well nourished, normocephalic, in no acute distress. Non-toxic appearing. HEENT- Scab across left forehead, healing. Heart-normal S1 and S2. No murmurs, rubs or gallops. Lungs-clear bilaterally, no respiratory distress, no accessory muscle use. Abdomen-normal bowel sounds and soft. No ascites noted. Extremities- no clubbing, cyanosis, or edema. Neuro: able to see amount of finger. Results & Data Results & Data Vital Signs (Past 12 Hours) Vital Signs Temp Pulse Resp BP Pulse Ox O2 Del Method 08/27/24 07:43 36.3 C L 60 16 108/69 95 Room Air 08/26/24 21:04 36.8 C 68 20 161/98 H 100 Room Air PG Care Time/CCT Total # of Minutes Spent Total Time Spent with Patient: Total time spent is greater than 50% in coordination of care (as documented) at patient's floor/unit and/or counseling patient: Coding Level of Care Code 60128 SUB INP/OBS CARE 2/35MIN Diagnoses Alzheimer dementia with behavioral disturbance G30.9; F02.818 Diabetes mellitus E11.9 Atrial fibrillation I48.91 Laceration of forehead S01.81XA Encounter type: initial encounter Thiamine deficiency E51.9 (4) Laceration of forehead Encounter type: initial encounter Qualified Code(s): S01.81XA - Laceration without foreign body of other part of head, initial encounter
[2024-08-27 13:36] LABS: Appearance Urine Clear (Clear); Bilirubin Urine Negative (Negative); Blood Urine Negative (Negative); Color Urine Yellow; Glucose Urine UA Negative (Negative); Ketones Urine Negative (Negative); Leukocyte Esterase Urine Negative (Negative); Nitrite Urine Negative (Negative); Protein Urine Negative (Negative); Specific Gravity Urine 1.019 (1.000-1.030); Urobilinogen Urine Negative (Negative)
--- NOTE | 2024-08-27 13:42 | Psychiatric Progress Note ---
Date of Service August 27, 2024 Impression / Recommendations Impression 74 yo man with dementia with behavioral disturbance admitted medically for concern for metabolic encephalopathy and increased aggression. Psychiatry consulted for recommendation for dementia with agitation. Diagnostically consistent with dementia with behavioral disturbance. A: Patient required escalating doses of antipsychotic medication to control behaviors overnight. Medication history reviewed and additional medication options provided for behavioral disturbances. Given patient's mental state and behaviors at new baseline, and difficulty managing behaviors- he may benefit from inpatient geriatric psychiatry admission for further management. Overall, I spent a total of 40 minutes with this case including review of chart records, nursing report, review of lab work, direct evaluation of the patient at bedside, counseling the patient, discussion of the patient with the hospitalist provider, discussion with the psychiatric liaison during clinical rounds, and documentation in the electronic health record. (1) Alzheimer dementia with behavioral disturbance: (2) Metabolic encephalopathy: Plan -Continue current psychiatric medications: * sertraline 100mg qd * clonidine 0.1mg HS * olanzapine 2.5mg qAM, [id number] and 10mg HS * olanzapine 2.5mg Q6hr PRN for agitation -Consider addition of Depakote 500mg HS or Gabapentin 300mg HS for behavioral disturbances -Avoid benzodiazepines Interval History Identifying Information 74 yo man with dementia with behavioral disturbance admitted medically for concern for metabolic encephalopathy and increased aggression. Psychiatry consulted for recommendation for dementia with agitation Chief Complaint Agitation Subjective Subjective Chart review: received 27.5mg of olanzapine and got lorazepam 1mg for behaviors over the last 24 hours. On exam, pt was AO to year and self only. Unable to state location or month. Poor concentration and unable to answer questions appropriately. Denies having pain and endorses fair mood. Unable to recalls children's names. Physical Exam Mental Examination Appearance: Unkempt and Disheveled Eye Contact: Diverts Contact Motor Behavior: Restless and Clumsy Speech: Soft, Slurred, Delayed and Poverty of Speech Mood: Calm Affect: Constricted Thought Process: Disorganized and Disoriented Thought Content: Disorganized Hallucinations: None Insight: Poor Judgement: Poor Vital Signs (Past 24 Hours) Last Vital Signs Temp 36.3 C L 08/27/24 07:43 Pulse 60 08/27/24 07:43 Resp 16 08/27/24 07:43 BP 108/69 08/27/24 07:43 Pulse Ox 95 08/27/24 07:43 O2 Del Method Room Air 08/27/24 07:43 Results & Data ([facility]) Laboratory Results Laboratory Results - last 24 hr 08/27/24 13:14 Urine Color Yellow Urine Appearance Clear Urine pH 6.0 Ur Specific [place] 1.019 Urine Protein Negative Urine Glucose (UA) Negative Urine Ketones Negative Urine Blood Negative Urine Nitrite Negative Urine Bilirubin Negative Urine Urobilinogen Negative Ur Leukocyte Esterase Negative Current Inpatient Medications Current Inpatient Medications: Current Inpatient Medications Acetaminophen (Acetaminophen 325 Mg Tab) 650 mg PO Q4H PRN PRN Reason: Pain or Fever Stop: 09/07/24 16:04 Last Admin: 08/24/24 11:11 Dose: 650 mg Apixaban (Apixaban 5 Mg Tablet) 5 mg PO BID RIGO Stop: 09/08/24 08:59 Last Admin: 08/27/24 09:11 Dose: 5 mg Clonidine HCl (Clonidine Hcl 0.1 Mg Tab) 0.1 mg PO HS RIGO Stop: 09/14/24 20:59 Last Admin: 08/26/24 19:20 Dose: 0.1 mg Dextrose (Dextrose 50% 50 Ml Syringe) 25 - 50 ml IV UD PRN; Protocol PRN Reason: Hypoglycemia Protocol Stop: 09/07/24 16:04 Famotidine (Famotidine 20 Mg Tab) 20 mg PO BID RIGO Stop: 09/07/24 20:59 Last Admin: 08/27/24 09:16 Dose: 20 mg Glucagon (Glucagon For Inj 1 Mg Vial) 1 mg SQ UD PRN; Protocol PRN Reason: Hypoglycemia Protocol Stop: 09/07/24 16:04 Glucose (Glucose 40% Gel 15 Gm Tube) 15 - 30 gm PO UD PRN; Protocol PRN Reason: Hypoglycemia Protocol Stop: 09/07/24 16:04 Glucose (Glucose 10 Tab/Tube) 4 - 8 tab PO UD PRN; Protocol PRN Reason: Hypoglycemia Treatment Stop: 09/07/24 16:04 Metoprolol Succinate (Metoprolol Succ 50mg Ext Rel Tab) 12.5 mg PO QAM RIGO Stop: 09/17/24 08:59 Last Admin: 08/27/24 09:11 Dose: 12.5 mg Miscellaneous (Carbohydrates For Hypoglycemia ) 15 - 30 gm PO UD PRN PRN Reason: Hypoglycemia Protocol Stop: 09/07/24 16:04 Olanzapine (Olanzapine 10 Mg Tab) 10 mg PO HS RIGO Stop: 09/14/24 20:59 Last Admin: 08/26/24 19:21 Dose: 10 mg Olanzapine (Olanzapine 2.5 Mg Tab) 2.5 mg PO QAM RIGO Stop: 09/16/24 08:59 Last Admin: 08/27/24 09:10 Dose: 2.5 mg Olanzapine (Olanzapine 2.5 Mg Tab) 2.5 mg PO 1400 RIGO Stop: 09/25/24 13:59 Last Admin: 08/26/24 16:12 Dose: 2.5 mg Olanzapine (Olanzapine 2.5 Mg Tab) 2.5 mg PO Q6H PRN PRN Reason: Agitation Stop: 09/25/24 11:44 Last Admin: 08/26/24 19:21 Dose: 2.5 mg Ondansetron HCl (Ondansetron Inj 2 Mg/Ml 2 Ml Vial) 4 mg IV Q6H PRN PRN Reason: Nausea Stop: 09/07/24 16:04 Sertraline HCl (Sertraline Hcl 100 Mg Tablet) 100 mg PO QAM RIGO Stop: 09/13/24 09:44 Last Admin: 08/27/24 09:11 Dose: 100 mg Simvastatin (Simvastatin 40 Mg Tab) 40 mg PO PM RIGO Stop: 09/07/24 20:59 Last Admin: 08/26/24 19:21 Dose: 40 mg Tamsulosin HCl (Tamsulosin Hcl 0.4 Mg Cap) 0.4 mg PO HS RIGO Stop: 09/07/24 20:59 Last Admin: 08/26/24 19:21 Dose: 0.4 mg Thiamine HCl (Thiamine Hcl 100 Mg Tab) 200 mg PO QAM RIGO Stop: 09/17/24 08:59 Last Admin: 08/27/24 09:10 Dose: 200 mg
--- NOTE | 2024-08-27 18:16 | Hospitalist Progress Note ---
Date of Service August 27, 2024 Assessment & Plan (1) Alzheimer dementia with behavioral disturbance: Plan: encephalopathy/delirium superimposed on dementia with behavioral disturbance resides at [facility] dementia unit but was just admitted there 5 days prior to admission multiple episodes of sundowning/aggression; resolved - psychiatry consulted - discontinued home Seroquel, risperidone, Aricept, and Namenda from home - recent QtC WNL - 1:1 lifted 08/18 1330 - Continue Sertraline 100 mg, Clonidine 0.1 mg HS, Zyprexa 10 mg HS, and Zyprexa 2.5 mg QAM - Zyprexa 5 mg PO prn - continue with supportive care - raising blinds during the day, closing at night, frequent re-orientation, contact with family/friends, explaining procedures/nursing care measures prior to physical contact, correct any hearing and visual impairments, walking patient around the halls, giving patient things to do - will need psychiatric clearance before returning back to [facility] Patient has been having behavior disturbance over past 2 nights. Add gabapentin HS (2) Diabetes mellitus: Plan: Controlled with metformin at home; Held on admission - recent A1c 6.2% - ADA diet - With minimal insulin given and glucose stable, discontinue NovoLog 08/16 (3) Atrial fibrillation: Plan: history of A-fib on Eliquis - A-fib seen on telemetry - Continue Eliquis - No significant findings on echo - Metoprolol decreased from 50 to 12.5mg due to AM hypotension likely caused by clonidine (4) Laceration of forehead: Plan: s/p mechanical fall 08/08 - healing - sutures removed 08/16 (5) Thiamine deficiency: Plan: B1 on admission low, 7 - Thiamine IV 500 mg Q8 x6 bags given - transition to 200 mg PO daily 08/18 Plan Chronic stable diagnoses: BPH - continue Flomax GERD - continue Pepcid VTE ppx: Eliquis Diet: DM type II diet Code status: full Dispo: Med Surg; will discharge back to [facility] now that acute psychiatric issues resolved - pending placement Admission and Anticipated Discharge Date Admission Date: August 08, 2024 Subjective Poor historian, Physical Exam Physical Exam: The patient is awake, and well nourished, normocephalic, in no acute distress. Non-toxic appearing. HEENT- Scab across left forehead, healing. Heart-normal S1 and S2. No murmurs, rubs or gallops. Lungs-clear bilaterally, no respiratory distress, no accessory muscle use. Abdomen-normal bowel sounds and soft. No ascites noted. Extremities- no clubbing, cyanosis, or edema. Neuro: able to see amount of finger. Results & Data Results & Data Vital Signs (Past 12 Hours) Vital Signs Temp Pulse Resp BP Pulse Ox O2 Del Method 08/27/24 14:53 36.5 C 75 16 117/75 98 Room Air 08/27/24 07:43 36.3 C L 60 16 108/69 95 Room Air PG Care Time/CCT Total # of Minutes Spent Total Time Spent with Patient: Total time spent is greater than 50% in coordination of care (as documented) at patient's floor/unit and/or counseling patient: Coding Level of Care Code 19410 SUB INP/OBS CARE 2/35MIN Diagnoses Alzheimer dementia with behavioral disturbance G30.9; F02.818 Diabetes mellitus E11.9 Atrial fibrillation I48.91 Laceration of forehead S01.81XA Encounter type: initial encounter Thiamine deficiency E51.9 (4) Laceration of forehead Encounter type: initial encounter Qualified Code(s): S01.81XA - Laceration without foreign body of other part of head, initial encounter
[2024-08-27] MEDS: MELATONIN 3 MG TAB PO PRN (21:13)
[2024-08-27] MEDS: GABAPENTIN 300 MG CAP PO SCH (21:13)
--- NOTE | 2024-08-28 16:31 | Hospitalist Progress Note ---
Date of Service August 28, 2024 Assessment & Plan (1) Alzheimer dementia with behavioral disturbance: Plan: Encephalopathy/delirium superimposed on dementia with behavioral disturbance Resides at [facility] [place] dementia unit but was just admitted there 5 days prior to admission after a 9 day stay at [facility] for severe agitation. Prior to that, he had a short stay at a [facility] called [facility] in [place] but was too much for them to handle as per his . With multiple episodes of sundowning/aggression during first week of admission; now resolved Psychiatry consulted-appreciate recommendations Discontinued home Seroquel, risperidone, Aricept, and Namenda 1:1 lifted 08/18 1330 Continue Sertraline 100 mg Since admission, started Clonidine 0.1 mg HS, Zyprexa 10 mg HS, and Zyprexa 2.5 mg QAM and qPM at 1400 Also started gabapentin 300mg po hs which seems to have helped but remains quite restless and agitated at times throughout the day--> will now add 100mg po qAM Continue with supportive care - raising blinds during the day, closing at night, frequent re-orientation, contact with family/friends, explaining procedures/nursing care measures prior to physical contact, correct any hearing and visual impairments, walking patient around the halls, giving patient things to do-he now has a delirium prevention kit at bedside (2) Thiamine deficiency: Plan: B1 on admission low, 7 Thiamine IV 500 mg Q8 x6 bags given Transitioned to 200 mg PO daily 08/18 (3) Atrial fibrillation: Plan: History of permanent A-fib on Eliquis Remained in rate controlled A-fib on telemetry, now since downgraded to med/surg unit Continue Eliquis No significant findings on echo Metoprolol decreased from 50mg daily to 12.5mg due to AM hypotension likely caused by clonidine (4) Diabetes mellitus: Plan: Controlled with metformin at home; Held on admission Recent A1c 6.2% Continue ADA diet With minimal insulin requirement and glucose stable, discontinued supplemental NovoLog 08/16 (5) Laceration of forehead: Plan: s/p mechanical fall 08/08 with lac to left forehead Sutures removed 08/16 and appears well healed Plan Chronic stable diagnoses: BPH - continue Flomax, no acute issues GERD - continue Pepcid VTE ppx: Eliquis Diet: DM type II diet Code status: full Dispo: continued stay on Med Surg, medically stable for discharge back to [facility] now that acute psychiatric issues resolved-awaiting approval from DON at [facility] Admission and Anticipated Discharge Date Admission Date: August 08, 2024 Subjective Pt talkative, restless, but pleasant. Fidgeting with his bedsheets. RN reports he was quite drowsy this AM after starting on gabapentin last night, but now wide awake. He is still very unstable on his feet. I discussed his care with his on the phone Physical Exam Constitutional: WD/WN, vitals as above Respiratory: normal respiratory effort, lungs clear to auscultation Cardiovascular: Rate/Rhythm: regular rate and + irregularly irregular Heart Sounds: no murmur Psychiatric: Orientation: alert, oriented to person and cooperative; + not oriented to place and + not oriented to time Results & Data Results & Data Vital Signs (Past 12 Hours) Vital Signs Temp Pulse Resp BP BP Pulse Ox O2 Del Method 08/28/24 14:22 70 16 133/83 98 Room Air 08/28/24 08:06 36.6 C 71 16 102/66 96 Room Air PG Care Time/CCT Total # of Minutes Spent Total Time Spent with Patient: Total time spent is greater than 50% in coordination of care (as documented) at patient's floor/unit and/or counseling patient: Coding Level of Care Code 46840 SUB INP/OBS CARE 2/35MIN Diagnoses Alzheimer dementia with behavioral disturbance G30.9; F02.818 Thiamine deficiency E51.9 Atrial fibrillation I48.91 Diabetes mellitus E11.9 Laceration of forehead S01.81XA Encounter type: initial encounter (5) Laceration of forehead Encounter type: initial encounter Qualified Code(s): S01.81XA - Laceration without foreign body of other part of head, initial encounter
[2024-08-28 19:30] LABS: Hemoglobin 13.7 g/dl (14.0-18.0); Mean Corpuscular Hemoglobin 31.9 pg (25.0-34.0); Mean Corpuscular Hgb Conc 35.1 g/dL (32.0-36.0); Mean Corpuscular Volume 90.9 fL (80.0-100.0); Mean Platelet Volume 9.5 fL (9.4-12.4); Platelet Count 145 K/uL (130-400); RDW Coefficient of Variation 12.7 % (11.5-14.5); RDW Standard Deviation 41.5 fL (36.4-46.3); Red Blood Count 4.29 M/uL (4.70-6.10); White Blood Count 7.07 K/ul (4.8-10.8)
[2024-08-28 19:46] LABS: BUN Creatinine Ratio 17.6 (10-20); Calcium 9.3 mg/dl (8.6-10.3); Creatinine Clr Calc Pharmacy 57.6 ml/min
[2024-08-29] MEDS: GABAPENTIN 100 MG CAP PO SCH (10:01)
--- NOTE | 2024-08-29 17:25 | Hospitalist Progress Note ---
Date of Service August 29, 2024 Assessment & Plan (1) Alzheimer dementia with behavioral disturbance: Plan: Encephalopathy/delirium superimposed on dementia with behavioral disturbance Resides at [facility] dementia unit but was just admitted there 5 days prior to admission after a 9 day stay at [facility] for severe agitation. Prior to that, he had a short stay at a [facility] called [facility] in [place] but was too much for them to handle as per his . With multiple episodes of sundowning/aggression during first week of admission; now resolved Psychiatry consulted-appreciate recommendations Discontinued home Seroquel, risperidone, Aricept, and Namenda 1:1 lifted 08/18 1330 and not needed since, much improved Continue Sertraline 100 mg Since admission, started Clonidine 0.1 mg HS, Zyprexa 10 mg HS, and Zyprexa 2.5 mg QAM and qPM at 1400 Psychiatry also recommended starting gabapentin 100mg po qAM and 300mg po hs which seems to have helped Continue with supportive care - raising blinds during the day, closing at night, frequent re-orientation, contact with family/friends, explaining procedures/nursing care measures prior to physical contact, correct any hearing and visual impairments, walking patient around the halls, giving patient things to do-he now has a delirium prevention kit at bedside (2) Thiamine deficiency: Plan: B1 on admission low, 7 Thiamine IV 500 mg Q8 x6 bags given Transitioned to 200 mg PO daily 08/18 (3) Atrial fibrillation: Plan: History of permanent A-fib on Eliquis Remained in rate controlled A-fib on telemetry, now since downgraded to med/surg unit Continue Eliquis No significant findings on echo Metoprolol decreased from 50mg daily to 12.5mg due to AM hypotension likely c aused by clonidine (4) Diabetes mellitus: Plan: Controlled with metformin at home; Held on admission Recent A1c 6.2% Continue ADA diet With minimal insulin requirement and glucose stable, discontinued supplemental NovoLog 08/16 (5) Laceration of forehead: Plan: s/p mechanical fall 08/08 with lac to left forehead Sutures removed 08/16 and appears well healed Plan Chronic stable diagnoses: BPH - continue Flomax, no acute issues GERD - continue Pepcid VTE ppx: Eliquis Diet: DM type II diet Code status: full Dispo: continued stay on Med Surg, medically stable for discharge back to [facility] now that acute psychiatric issues resolved-awaiting approval from LEANNE at [facility] Admission and Anticipated Discharge Date Admission Date: August 08, 2024 Subjective No problems today, no prn antipsychotics needed. Pt pleasantly confused, eating his chicken dinner when I saw him Physical Exam Constitutional: WD/WN, vitals as above Respiratory: normal respiratory effort, lungs clear to auscultation Cardiovascular: Rate/Rhythm: regular rate and + irregularly irregular Heart Sounds: no murmur Psychiatric: Orientation: alert, oriented to person and cooperative; + not oriented to place and + not oriented to time Results & Data Results & Data Vital Signs (Past 12 Hours) Vital Signs Temp Pulse Resp BP Pulse Ox O2 Del Method 08/29/24 09:56 36.7 C 66 16 119/82 99 Room Air PG Care Time/CCT Total # of Minutes Spent Total Time Spent with Patient: Total time spent is greater than 50% in coordination of care (as documented) at patient's floor/unit and/or counseling patient: Coding Level of Care Code 42313 SUB INP/OBS CARE 11/18MIN Diagnoses Alzheimer dementia with behavioral disturbance G30.9; F02.818 Thiamine deficiency E51.9 Atrial fibrillation I48.91 Diabetes mellitus E11.9 Laceration of forehead S01.81XA Encounter type: initial encounter (5) Laceration of forehead Encounter type: initial encounter Qualified Code(s): S01.81XA - Laceration without foreign body of other part of head, initial encounter
--- NOTE | 2024-08-30 11:52 | Hospitalist Progress Note ---
Date of Service August 30, 2024 Assessment & Plan (1) Alzheimer dementia with behavioral disturbance: Plan: Encephalopathy/delirium superimposed on dementia with behavioral disturbance Resides at [facility] dementia unit but was just admitted there 5 days prior to admission after a 9 day stay at [facility] for severe agitation. Prior to that, he had a short stay at a [facility] in [place] but was too much for them to handle as per his . With multiple episodes of sundowning/aggression during first week of admission; now resolved Psychiatry consulted-appreciate recommendations Discontinued home Seroquel, risperidone, Aricept, and Namenda 1:1 lifted 08/18 1330 and not needed since, much improved Continue Sertraline 100 mg Since admission, started Clonidine 0.1 mg HS, Zyprexa 10 mg HS, and Zyprexa 2.5 mg QAM and qPM at 1400 Discontinue the prn dose of po zyprexa so it is not given excessively if not necessary Psychiatry also recommended starting gabapentin -now on 100mg po qAM and 300mg po hs which seems to have helped Continue with supportive care - raising blinds during the day, closing at night, frequent re-orientation, contact with family/friends, explaining procedures/nursing care measures prior to physical contact, correct any hearing and visual impairments, walking patient around the halls, giving patient things to do-he now has a delirium prevention kit at bedside (2) Thiamine deficiency: Plan: B1 on admission low, 7 Thiamine IV 500 mg Q8 x6 bags given Transitioned to 200 mg PO daily 08/18 (3) Atrial fibrillation: Plan: History of permanent A-fib on Eliquis Remained in rate controlled A-fib on telemetry, now since downgraded to med/surg unit Continue Eliquis No significant findings on echo Metoprolol decreased from 50mg daily to 12.5mg due to AM hypotension likely caused by clonidine (4) Diabetes mellitus: Plan: Controlled with metformin at home; Held on admission Recent A1c 6.2% Continue ADA diet With minimal insulin requirement and glucose stable, discontinued supplemental NovoLog 08/16 (5) Laceration of forehead: Plan: s/p mechanical fall 08/08 with lac to left forehead Sutures removed 08/16 and appears well healed Mild headache reported on 08/30 possibly from poor sleep through the night. Resolved with tylenol. No head trauma since admission Monitor for recurrence Plan Chronic stable diagnoses: BPH - continue Flomax, no acute issues GERD - continue Pepcid Hyperlipidemia- continue statin VTE ppx: Eliquis Diet: DM type II diet Code status: full Dispo: continued stay on Med Surg, medically stable for discharge back to [facility] now that acute psychiatric issues resolved-awaiting approval from LEANNE at [facility] Admission and Anticipated Discharge Date Admission Date: August 08, 2024 Subjective Pt didn't sleep much overnight and did c/o of a headache to the nurse this AM for which he was given tylenol. Otherwise, the nurse fed him and he ate all of his meal. He is asking to go to the bathroom appropriately. When I went to see him, he was asleep and I did not wake him Physical Exam Constitutional: WD/WN, vitals as above Respiratory: normal respiratory effort Psychiatric: Orientation: + not alert (sleeping) Results & Data Results & Data Vital Signs (Past 12 Hours) Vital Signs Temp Pulse Resp BP Pulse Ox O2 Del Method 08/30/24 08:06 36.7 C 80 16 105/79 98 Room Air PG Care Time/CCT Total # of Minutes Spent Total Time Spent with Patient: Total time spent is greater than 50% in coordination of care (as documented) at patient's floor/unit and/or counseling patient: Coding Level of Care Code 92195 SUB INP/OBS CARE 11/18MIN Diagnoses Alzheimer dementia with behavioral disturbance G30.9; F02.818 Thiamine deficiency E51.9 Atrial fibrillation I48.91 Diabetes mellitus E11.9 Laceration of forehead S01.81XA Encounter type: initial encounter (5) Laceration of forehead Encounter type: initial encounter Qualified Code(s): S01.81XA - Laceration without foreign body of other part of head, initial encounter
--- NOTE | 2024-08-30 15:31 | Psychiatric Progress Note ---
Date of Service August 30, 2024 Impression / Recommendations Impression 74 yo man with dementia with behavioral disturbance admitted medically for concern for metabolic encephalopathy and increased aggression. Psychiatry consulted for recommendation for dementia with agitation. Diagnostically consistent with dementia with behavioral disturbance. A: Medication history reviewed. Over the last 2 nights has required additional olanzapine 2.5 mg as needed doses as oral administration. Appears behavioral disturbances are stabilizing. Concern for delirious process. Recommend to increase gabapentin to 400 mg at bedtime and to increase olanzapine to 12.5 mg at bedtime. Once behaviors stabilized, may benefit from placement in a memory care unit. Overall, I spent a total of 25 minutes with this case including review of chart records, nursing report, review of lab work, direct evaluation of the patient at bedside, counseling the patient, discussion of the patient with the hospitalist provider, discussion with the psychiatric liaison during clinical rounds, and documentation in the electronic health record. (1) Alzheimer dementia with behavioral disturbance: (2) Metabolic encephalopathy: Plan -Continue current psychiatric medications: * sertraline 100mg qd * clonidine 0.1mg HS * olanzapine 2.5mg qAM, [id number] and 12.5mg HS * olanzapine 2.5mg Q6hr PRN for agitation -Increase Gabapentin to 400mg HS -Avoid benzodiazepines Interval History Identifying Information 74 yo man with dementia with behavioral disturbance admitted medically for concern for metabolic encephalopathy and increased aggression. Psychiatry consulted for recommendation for dementia with agitation Chief Complaint AMS Subjective Subjective Patient and out of consciousness and has difficulty seeing at times. Alert when his name is called and appears cheerful. Reports fair mood, denies pain. Is seen eating. Alert and oriented to himself and year. Physical Exam Mental Examination Appearance: Unkempt and Disheveled Eye Contact: Diverts Contact Motor Behavior: Restless and Clumsy Speech: Soft, Slurred, Delayed and Poverty of Speech Mood: Calm Affect: Constricted Thought Process: Disorganized and Disoriented Thought Content: Disorganized Hallucinations: None Insight: Poor Judgement: Poor Vital Signs (Past 24 Hours) Last Vital Signs Temp 36.6 C 08/30/24 15:24 Pulse 70 08/30/24 15:24 Resp 18 08/30/24 15:24 BP 125/75 08/30/24 15:24 Pulse Ox 100 08/30/24 15:24 O2 Del Method Room Air 08/30/24 15:24 Results & Data ([facility]) Laboratory Results Laboratory Results - last 24 hr 08/29/24 16:45 POC Glucose 106 H Current Inpatient Medications Current Inpatient Medications: Current Inpatient Medications Acetaminophen (Acetaminophen 325 Mg Tab) 650 mg PO Q4H PRN PRN Reason: Pain or Fever Stop: 09/07/24 16:04 Last Admin: 08/30/24 09:00 Dose: 650 mg Apixaban (Apixaban 5 Mg Tablet) 5 mg PO BID RIGO Stop: 09/08/24 08:59 Last Admin: 08/30/24 08:39 Dose: 5 mg Clonidine HCl (Clonidine Hcl 0.1 Mg Tab) 0.1 mg PO HS RIGO Stop: 09/14/24 20:59 Last Admin: 08/29/24 20:11 Dose: 0.1 mg Dextrose (Dextrose 50% 50 Ml Syringe) 25 - 50 ml IV UD PRN; Protocol PRN Reason: Hypoglycemia Protocol Stop: 09/07/24 16:04 Famotidine (Famotidine 20 Mg Tab) 20 mg PO BID RIGO Stop: 09/07/24 20:59 Last Admin: 08/30/24 09:50 Dose: Not Given Gabapentin (Gabapentin 300 Mg Cap) 300 mg PO HS RIGO Stop: 09/26/24 20:59 Last Admin: 08/29/24 20:11 Dose: 300 mg Gabapentin (Gabapentin 100 Mg Cap) 100 mg PO QAM RIGO Stop: 09/28/24 08:59 Last Admin: 08/30/24 08:39 Dose: 100 mg Glucagon (Glucagon For Inj 1 Mg Vial) 1 mg SQ UD PRN; Protocol PRN Reason: Hypoglycemia Protocol Stop: 09/07/24 16:04 Glucose (Glucose 40% Gel 15 Gm Tube) 15 - 30 gm PO UD PRN; Protocol PRN Reason: Hypoglycemia Protocol Stop: 09/07/24 16:04 Glucose (Glucose 10 Tab/Tube) 4 - 8 tab PO UD PRN; Protocol PRN Reason: Hypoglycemia Treatment Stop: 09/07/24 16:04 Melatonin (Melatonin 3 Mg Tab) 3 mg PO HS PRN PRN Reason: Sleep Stop: 09/26/24 21:04 Last Admin: 08/29/24 20:11 Dose: 3 mg Metoprolol Succinate (Metoprolol Succ 50mg Ext Rel Tab) 12.5 mg PO QAM RIGO Stop: 09/17/24 08:59 Last Admin: 08/30/24 08:41 Dose: 12.5 mg Miscellaneous (Carbohydrates For Hypoglycemia ) 15 - 30 gm PO UD PRN PRN Reason: Hypoglycemia Protocol Stop: 09/07/24 16:04 Olanzapine (Olanzapine 10 Mg Tab) 10 mg PO HS RIGO Stop: 09/14/24 20:59 Last Admin: 08/29/24 20:11 Dose: 10 mg Olanzapine (Olanzapine 2.5 Mg Tab) 2.5 mg PO QAM RIGO Stop: 09/16/24 08:59 Last Admin: 08/30/24 08:40 Dose: 2.5 mg Olanzapine (Olanzapine 2.5 Mg Tab) 2.5 mg PO 1400 RIGO Stop: 09/25/24 13:59 Last Admin: 08/30/24 14:35 Dose: 2.5 mg Ondansetron HCl (Ondansetron Inj 2 Mg/Ml 2 Ml Vial) 4 mg IV Q6H PRN PRN Reason: Nausea Stop: 09/07/24 16:04 Sertraline HCl (Sertraline Hcl 100 Mg Tablet) 100 mg PO QAM RIGO Stop: 09/13/24 09:44 Last Admin: 08/30/24 08:40 Dose: 100 mg Simvastatin (Simvastatin 40 Mg Tab) 40 mg PO PM RIGO Stop: 09/07/24 20:59 Last Admin: 08/29/24 20:11 Dose: 40 mg Tamsulosin HCl (Tamsulosin Hcl 0.4 Mg Cap) 0.4 mg PO HS RIGO Stop: 09/07/24 20:59 Last Admin: 08/29/24 20:12 Dose: 0.4 mg Thiamine HCl (Thiamine Hcl 100 Mg Tab) 200 mg PO QAM RIGO Stop: 09/17/24 08:59 Last Admin: 08/30/24 08:40 Dose: 200 mg
[2024-08-30] MEDS: OLANZapine 5 MG TABLET PO SCH (20:42)
[2024-08-30] MEDS: GABAPENTIN 400 MG CAP PO SCH (20:43)
--- NOTE | 2024-08-31 14:24 | Hospitalist Progress Note ---
Date of Service August 31, 2024 Assessment & Plan (1) Alzheimer dementia with behavioral disturbance: Plan: Encephalopathy/delirium Resides at [facility] dementia unit Psychiatry consulted-appreciate recommendations Discontinued home Seroquel, risperidone, Aricept, and Namenda 1:1 lifted 08/18 1330 and not needed since, much improved Continue Sertraline 100 mg Since admission, started Clonidine 0.1 mg HS, Zyprexa 10 mg HS, and Zyprexa 2.5 mg QAM and qPM at 1400 Psychiatry also recommended starting gabapentin -now on 100mg po qAM and 300mg po hs (2) Thiamine deficiency: Plan: B1 on admission low, 7 Thiamine IV 500 mg Q8 x6 bags given Transitioned to 200 mg PO daily 08/18 (3) Atrial fibrillation: Plan: History of permanent A-fib on Eliquis Remained in rate controlled A-fib on telemetry, now since downgraded to med/surg unit Continue Eliquis No significant findings on echo Metoprolol decreased from 50mg daily to 12.5mg due to AM hypotension likely caused by clonidine (4) Diabetes mellitus: Plan: Controlled with metformin at home; Held on admission Recent A1c 6.2% Continue ADA diet With minimal insulin requirement and glucose stable, discontinued supplemental NovoLog 08/16 (5) Laceration of forehead: Plan: s/p mechanical fall 08/08 with lac to left forehead Sutures removed 08/16 and appears well healed Plan Chronic stable diagnoses: BPH - continue Flomax, no acute issues GERD - continue Pepcid Hyperlipidemia- continue statin VTE ppx: Eliquis Diet: DM type II diet Code status: full Dispo: continued stay on Med Surg, medically stable for discharge back to [facility] now that acute psychiatric issues resolved-awaiting approval from LEANNE at [facility] Admission and Anticipated Discharge Date Admission Date: August 08, 2024 Subjective Pt appears at baseline level of pleasant confusion. Review of Systems Review of Systems: CONST: Negative for fever, body aches and chills. HENT: Negative for neck pain/stiffness, headache, congestion, sore throat, swelling. EYES: Negative for discharge/pain or vision changes. RESP: Negative for cough/hemoptysis and shortness of breath. CV: Negative chest pain, difficulty breathing, palpitations. ABD: Negative pain, nausea, vomiting. : Negative increase frequency, dysuria, blood in urine or stool. MUSC: Negative for muscle aches, edema. SKIN: Negative rash, lesions/sores. NEURO: Negative headache, dizziness, weakness. Physical Exam Physical Exam: GENERAL APPEARANCE NAD, activity normal for age, well developed/ well nourished, no cyanosis, pallor, or diaphoresis. EYES lids/conjunctiva normal. EARS/NOSE/THROAT Mucous membranes moist, nares normal, lips/teeth normal uvula midline without oral pharyngeal erythema, exudate or swelling TMs normal bilaterally. No lymphangitis/lymphedema. HEAD/NECK normocephalic atraumatic, no facial trauma, neck is supple. RESPIRATORY respiratory effort normal, speaks in full sentences, no tripod position, no accessory muscle use. Lungs clear to auscultation without rhonchi, wheezes, rales CARDIAC Regular rate and rhythm, no edema. ABDOMINAL Soft, ND/NT. No evidence of fluid wave. No pulsatile masses on exam, rebound tenderness, Diaz sign or pain over Mcburney's point. MUSCLES/EXTREMITIES No abnormal range of motion, no swelling. SKIN Warm, pink and dry. No rashes, dermatoses, petechiae or lesions. NEUROLOGICAL Confused. Gait and coordination are normal. 5/5 strength in all extremities. PSYCH Normal mood and affect. Judgement/competence is appropriate Results & Data Results & Data Vital Signs (Past 12 Hours) Vital Signs Temp Pulse Resp BP BP Pulse Ox O2 Del Method 08/31/24 09:00 66 18 121/81 99 Room Air 08/31/24 08:08 36.5 C 70 16 121/81 99 Room Air PG Care Time/CCT Total # of Minutes Spent Total Time Spent with Patient: Total time spent is greater than 50% in coordination of care (as documented) at patient's floor/unit and/or counseling patient: Coding Level of Care Code 39141 SUB INP/OBS CARE 2/35MIN Diagnoses Alzheimer dementia with behavioral disturbance G30.9; F02.818 Thiamine deficiency E51.9 Atrial fibrillation I48.91 Diabetes mellitus E11.9 Laceration of forehead S01.81XA Encounter type: initial encounter (5) Laceration of forehead Encounter type: initial encounter Qualified Code(s): S01.81XA - Laceration without foreign body of other part of head, initial encounter
--- NOTE | 2024-09-01 10:38 | Hospitalist Progress Note ---
Date of Service September 01, 2024 Assessment & Plan (1) Alzheimer dementia with behavioral disturbance: Plan: Encephalopathy/delirium Resides at [facility] dementia unit Psychiatry consulted-appreciate recommendations Discontinued home Seroquel, risperidone, Aricept, and Namenda 1:1 lifted 08/18 1330 and not needed since, much improved Continue Sertraline 100 mg Since admission, started Clonidine 0.1 mg HS, Zyprexa 10 mg HS, and Zyprexa 2.5 mg QAM and qPM at 1400 Psychiatry also recommended starting gabapentin -now on 100mg po qAM and 400mg po hs Added zyprexa 2.5mg IM Qhrs prn agitation (2) Thiamine deficiency: Plan: B1 on admission low, 7 Thiamine IV 500 mg Q8 x6 bags given Transitioned to 200 mg PO daily 08/18 (3) Atrial fibrillation: Plan: History of permanent A-fib on Eliquis Remained in rate controlled A-fib on telemetry, now since downgraded to med/surg unit Continue Eliquis No significant findings on echo Metoprolol decreased from 50mg daily to 12.5mg due to AM hypotension likely caused by clonidine (4) Diabetes mellitus: Plan: Controlled with metformin at home; Held on admission Recent A1c 6.2% Continue ADA diet With minimal insulin requirement and glucose stable, discontinued supplemental NovoLog 08/16 (5) Laceration of forehead: Plan: s/p mechanical fall 08/08 with lac to left forehead Sutures removed 08/16 and appears well healed Plan Chronic stable diagnoses: BPH - continue Flomax, no acute issues GERD - continue Pepcid Hyperlipidemia- continue statin VTE ppx: Eliquis Diet: DM type II diet Code status: full Dispo: continued stay on Med Surg, medically stable for discharge back to [facility] now that acute psychiatric issues resolved-awaiting approval from LEANNE at [facility] Admission and Anticipated Discharge Date Admission Date: August 08, 2024 Subjective Pt appears at baseline level of pleasant confusion, however nursing informed that he is having increased agitation and hallucinations. Review of Systems Review of Systems: CONST: Negative for fever, body aches and chills. HENT: Negative for neck pain/stiffness, headache, congestion, sore throat, swelling. EYES: Negative for discharge/pain or vision changes. RESP: Negative for cough/hemoptysis and shortness of breath. CV: Negative chest pain, difficulty breathing, palpitations. ABD: Negative pain, nausea, vomiting. : Negative increase frequency, dysuria, blood in urine or stool. MUSC: Negative for muscle aches, edema. SKIN: Negative rash, lesions/sores. NEURO: Negative headache, dizziness, weakness. Physical Exam Physical Exam: GENERAL APPEARANCE NAD, activity normal for age, well developed/ well nourished, no cyanosis, pallor, or diaphoresis. EYES lids/conjunctiva normal. EARS/NOSE/THROAT Mucous membranes moist, nares normal, lips/teeth normal uvula midline without oral pharyngeal erythema, exudate or swelling TMs normal bilaterally. No lymphangitis/lymphedema. HEAD/NECK normocephalic atraumatic, no facial trauma, neck is supple. RESPIRATORY respiratory effort normal, speaks in full sentences, no tripod position, no accessory muscle use. Lungs clear to auscultation without rhonchi, wheezes, rales CARDIAC Regular rate and rhythm, no edema. ABDOMINAL Soft, ND/NT. No evidence of fluid wave. No pulsatile masses on exam, rebound tenderness, Diaz sign or pain over Mcburney's point. MUSCLES/EXTREMITIES No abnormal range of motion, no swelling. SKIN Warm, pink and dry. No rashes, dermatoses, petechiae or lesions. NEUROLOGICAL Confused. Gait and coordination are normal. 5/5 strength in all extremities. PSYCH Confused. Results & Data Results & Data Vital Signs (Past 12 Hours) Vital Signs Temp Pulse Resp BP Pulse Ox O2 Del Method 09/01/24 08:27 36.4 C L 58 L 18 152/89 H 94 Room Air PG Care Time/CCT Total # of Minutes Spent Total Time Spent with Patient: Total time spent is greater than 50% in coordination of care (as documented) at patient's floor/unit and/or counseling patient: Coding Level of Care Code 93358 SUB INP/OBS CARE 2/35MIN Diagnoses Alzheimer dementia with behavioral disturbance G30.9; F02.818 Thiamine deficiency E51.9 Atrial fibrillation I48.91 Diabetes mellitus E11.9 Laceration of forehead S01.81XA Encounter type: initial encounter (5) Laceration of forehead Encounter type: initial encounter Qualified Code(s): S01.81XA - Laceration without foreign body of other part of head, initial encounter
[2024-09-01] MEDS: OLANZapine 10 MG/2.1 ML SDV IM STA (10:39)
[2024-09-01] MEDS: OLANZapine 10 MG/2.1 ML SDV IM PRN (20:58)
--- NOTE | 2024-09-02 00:10 | Communication Note ---
Date of Service: September 02, 2024 Increasing agitation overnight. Nursing feels agitation is a/w complaints of shoulder pain. Exam w/ no acute injury or evidence of bruising/dislocation. Patient remains agitated despite PRN medications currently ordered (Clonidine, Olanzapine) Will trial small dose of pain medication d/t pain complaints, if unsuccessful will add additional antipsychotic. Patient received 30 minutes of rest following 0.25 mg Dilaudid, will provide follow up dose. Remains hemodynamically stable. Resident Activity Tracking Resident Involvement: Resident Care Provided Care Provided: Adult [facility] Medicine
[2024-09-02] MEDS: HYDROmorphone INJ 0.5 MG/0.5 ML SYR IV STA ×2 (01:11→02:03)
--- NOTE | 2024-09-02 10:11 | XRay Report ---
SINGLE AP IMAGE OF THE RIGHT SHOULDER WITH INTERNAL ROTATION CLINICAL HISTORY: Right shoulder pain. COMPARISON: None FINDINGS: Alignment of the right acromioclavicular joint is anatomic. Alignment of the glenohumeral joint is suboptimally assessed on this exam given single view. Moderate degenerative changes within t he right shoulder are present. No fracture is identified. IMPRESSION: 1. No fractures within the right shoulder. 2. Moderate degenerative changes within the right shoulder. 3. Suboptimal evaluation of the glenohumeral joint alignment given single projection but likely anato gisel. ACT 112: Negative or not required by law. Electronically signed by: Pankaj Mensah M.D. 09/02/2024 10:10 AM
--- NOTE | 2024-09-02 13:12 | Hospitalist Progress Note ---
Date of Service September 02, 2024 Assessment & Plan (1) Alzheimer dementia with behavioral disturbance: Plan: Encephalopathy/delirium Resides at [facility] dementia unit Psychiatry consulted-appreciate recommendations Discontinued home Seroquel, risperidone, Aricept, and Namenda 1:1 lifted 08/18 1330 and not needed since, much improved Continue Sertraline 100 mg Since admission, started Clonidine 0.1 mg HS, Zyprexa 10 mg HS, and Zyprexa 2.5 mg QAM and qPM at 1400 Psychiatry also recommended starting gabapentin -now on 100mg po qAM and 400mg po hs Added zyprexa 2.5mg IM Qhrs prn agitation (2) Thiamine deficiency: Plan: B1 on admission low, 7 Thiamine IV 500 mg Q8 x6 bags given Transitioned to 200 mg PO daily 08/18 (3) Atrial fibrillation: Plan: History of permanent A-fib on Eliquis Remained in rate controlled A-fib on telemetry, now since downgraded to med/surg unit Continue Eliquis No significant findings on echo Metoprolol decreased from 50mg daily to 12.5mg due to AM hypotension likely caused by clonidine (4) Diabetes mellitus: Plan: Controlled with metformin at home; Held on admission Recent A1c 6.2% Continue ADA diet With minimal insulin requirement and glucose stable, discontinued supplemental NovoLog 08/16 (5) Laceration of forehead: Plan: s/p mechanical fall 08/08 with lac to left forehead Sutures removed 08/16 and appears well healed Plan Chronic stable diagnoses: BPH - continue Flomax, no acute issues GERD - continue Pepcid Hyperlipidemia- continue statin VTE ppx: Eliquis Diet: DM type II diet Code status: full Dispo: continued stay on Med Surg, medically stable for discharge back to [facility] now that acute psychiatric issues resolved-awaiting approval from LEANNE at [facility] Admission and Anticipated Discharge Date Admission Date: August 08, 2024 Subjective Pt appears at baseline level of pleasant confusion. Review of Systems Review of Systems: CONST: Negative for fever, body aches and chills. HENT: Negative for neck pain/stiffness, headache, congestion, sore throat, swelling. EYES: Negative for discharge/pain or vision changes. RESP: Negative for cough/hemoptysis and shortness of breath. CV: Negative chest pain, difficulty breathing, palpitations. ABD: Negative pain, nausea, vomiting. : Negative increase frequency, dysuria, blood in urine or stool. MUSC: Negative for muscle aches, edema. SKIN: Negative rash, lesions/sores. NEURO: Negative headache, dizziness, weakness. Physical Exam Physical Exam: GENERAL APPEARANCE NAD, activity normal for age, well developed/ well nourished, no cyanosis, pallor, or diaphoresis. EYES lids/conjunctiva normal. EARS/NOSE/THROAT Mucous membranes moist, nares normal, lips/teeth normal uvula midline without oral pharyngeal erythema, exudate or swelling TMs normal bilaterally. No lymphangitis/lymphedema. HEAD/NECK normocephalic atraumatic, no facial trauma, neck is supple. RESPIRATORY respiratory effort normal, speaks in full sentences, no tripod position, no accessory muscle use. Lungs clear to auscultation without rhonchi, wheezes, rales CARDIAC Regular rate and rhythm, no edema. ABDOMINAL Soft, ND/NT. No evidence of fluid wave. No pulsatile masses on exam, rebound tenderness, Diaz sign or pain over Mcburney's point. MUSCLES/EXTREMITIES No abnormal range of motion, no swelling. SKIN Warm, pink and dry. No rashes, dermatoses, petechiae or lesions. NEUROLOGICAL Confused. Gait and coordination are normal. 5/5 strength in all e xtremities. PSYCH Confused. Results & Data Results & Data Vital Signs (Past 12 Hours) Vital Signs Temp Pulse Resp BP Pulse Ox O2 Del Method 09/02/24 09:35 Room Air 09/02/24 09:26 36.4 C L 89 22 147/80 H 94 Room Air PG Care Time/CCT Total # of Minutes Spent Total Time Spent with Patient: Total time spent is greater than 50% in coordination of care (as documented) at patient's floor/unit and/or counseling patient: Coding Level of Care Code 04748 SUB INP/OBS CARE MIN Diagnoses Alzheimer dementia with behavioral disturbance G30.9; F02.818 Thiamine deficiency E51.9 Atrial fibrillation I48.91 Diabetes mellitus E11.9 Laceration of forehead S01.81XA Encounter type: initial encounter (5) Laceration of forehead Encounter type: initial encounter Qualified Code(s): S01.81XA - Laceration without foreign body of other part of head, initial encounter
--- NOTE | 2024-09-03 11:18 | Hospitalist Progress Note ---
Date of Service September 03, 2024 Assessment & Plan (1) Alzheimer dementia with behavioral disturbance: Plan: Encephalopathy/delirium Resides at [facility] dementia unit Psychiatry consulted-appreciate recommendations Discontinued home Seroquel, risperidone, Aricept, and Namenda 1:1 lifted 08/18 1330 and not needed since, much improved Continue Sertraline 100 mg Since admission, started Clonidine 0.1 mg HS, Zyprexa 10 mg HS, and Zyprexa 2.5 mg QAM and qPM at 1400 Psychiatry also recommended starting gabapentin -now on 100mg po qAM and 400mg po hs Added zyprexa 2.5mg IM Qhrs prn agitation (2) Thiamine deficiency: Plan: B1 on admission low, 7 Thiamine IV 500 mg Q8 x6 bags given Transitioned to 200 mg PO daily 08/18 (3) Atrial fibrillation: Plan: History of permanent A-fib on Eliquis Remained in rate controlled A-fib on telemetry, now since downgraded to med/surg unit Continue Eliquis No significant findings on echo Metoprolol decreased from 50mg daily to 12.5mg due to AM hypotension likely caused by clonidine (4) Diabetes mellitus: Plan: Controlled with metformin at home; Held on admission Recent A1c 6.2% Continue ADA diet With minimal insulin requirement and glucose stable, discontinued supplemental NovoLog 08/16 (5) Laceration of forehead: Plan: s/p mechanical fall 08/08 with lac to left forehead Sutures removed 08/16 and appears well healed Plan Chronic stable diagnoses: BPH - continue Flomax, no acute issues GERD - continue Pepcid Hyperlipidemia- continue statin VTE ppx: Eliquis Diet: DM type II diet Code status: full Dispo: continued stay on Med Surg, medically stable for discharge back to [facility] now that acute psychiatric issues resolved-awaiting approval from LEANNE at [facility] Admission and Anticipated Discharge Date Admission Date: August 08, 2024 Subjective Pt appears at baseline level of pleasant confusion. Reported by nurse that he choked on his food last night. Speech evaluation ordered this am. Review of Systems Review of Systems: CONST: Negative for fever, body aches and chills. HENT: Negative for neck pain/stiffness, headache, congestion, sore throat, swelling. EYES: Negative for discharge/pain or vision changes. RESP: Negative for cough/hemoptysis and shortness of breath. CV: Negative chest pain, difficulty breathing, palpitations. ABD: Negative pain, nausea, vomiting. : Negative increase frequency, dysuria, blood in urine or stool. MUSC: Negative for muscle aches, edema. SKIN: Negative rash, lesions/sores. NEURO: Negative headache, dizziness, weakness. Physical Exam Physical Exam: GENERAL APPEARANCE NAD, activity normal for age, well developed/ well nourished, no cyanosis, pallor, or diaphoresis. EYES lids/conjunctiva normal. EARS/NOSE/THROAT Mucous membranes moist, nares normal, lips/teeth normal uvula midline without oral pharyngeal erythema, exudate or swelling TMs normal bilaterally. No lymphangitis/lymphedema. HEAD/NECK normocephalic atraumatic, no facial trauma, neck is supple. RESPIRATORY respiratory effort normal, speaks in full sentences, no tripod position, no accessory muscle use. Lungs clear to auscultation without rhonchi, wheezes, rales CARDIAC Regular rate and rhythm, no edema. ABDOMINAL Soft, ND/NT. No evidence of fluid wave. No pulsatile masses on exam, rebound tenderness, Diaz sign or pain over Mcburney's point. MUSCLES/EXTREMITIES No abnormal range of motion, no swelling. SKIN Warm, pink and dry. No rashes, dermatoses, petechiae or lesions. NEUROLOGICAL Confused. Gait and coordination are normal. 5/5 strength in all extremities. PSYCH Confused. Results & Data Results & Data Vital Signs (Past 12 Hours) Vital Signs Temp Pulse Resp BP BP Pulse Ox O2 Del Method 09/03/24 09:22 Room Air 09/03/24 09:05 36.5 C 56 L 16 98/68 L 126/51 L 99 Room Air PG Care Time/CCT Total # of Minutes Spent Total Time Spent with Patient: Total time spent is greater than 50% in coordination of care (as documented) at patient's floor/unit and/or counseling patient: Coding Level of Care Code 29442 SUB INP/OBS CARE 2/35MIN Diagnoses Alzheimer dementia with behavioral disturbance G30.9; F02.818 Thiamine deficiency E51.9 Atrial fibrillation I48.91 Diabetes mellitus E11.9 Laceration of forehead S01.81XA Encounter type: initial encounter (5) Laceration of forehead Encounter type: initial encounter Qualified Code(s): S01.81XA - Laceration without foreign body of other part of head, initial encounter
[2024-09-04 08:54] LABS: Basophils # (auto) 0.03 K/uL (0.00-0.20); Basophils % (auto) 0.5 %; Eosinophils # (auto) 0.33 K/uL (0.00-0.50); Eosinophils % (auto) 5.6 %; Hematocrit (blood only) 37.6 % (42.0-52.0); Hemoglobin 13.1 g/dl (14.0-18.0); Immature Granulocytes # (auto) 0.05 K/uL (0.01-0.20); Immature Granulocytes % (auto) 0.8 %; Lymphocytes % (auto) 20.3 %; Mean Corpuscular Hemoglobin 31.4 pg (25.0-34.0); Mean Corpuscular Hgb Conc 34.8 g/dL (32.0-36.0); Mean Corpuscular Volume 90.2 fL (80.0-100.0); Mean Platelet Volume 9.7 fL (9.4-12.4); Monocytes % (auto) 8.4 %; Neutrophils # (auto) 3.81 K/uL (1.40-6.50); Neutrophils % (auto) 64.4 %; Platelet Count 152 K/uL (130-400); RDW Standard Deviation 42.6 fL (36.4-46.3); Red Blood Count 4.17 M/uL (4.70-6.10); White Blood Count 5.92 K/ul (4.8-10.8)
[2024-09-04 09:11] LABS: BUN Creatinine Ratio 22.5 (10-20); Calcium 9.6 mg/dl (8.6-10.3); Creatinine Clr Calc Pharmacy 94.3 ml/min; Potassium 4.2 mmol/L (3.5-5.1)
--- NOTE | 2024-09-04 11:21 | Hospitalist Progress Note ---
Date of Service September 04, 2024 Assessment & Plan (1) Alzheimer dementia with behavioral disturbance: Plan: Encephalopathy/delirium Resides at [facility] dementia unit Psychiatry consulted-appreciate recommendations Discontinued home Seroquel, risperidone, Aricept, and Namenda 1:1 lifted 08/18 1330 and not needed since, much improved Continue Sertraline 100 mg Since admission, started Clonidine 0.1 mg HS, Zyprexa 10 mg HS, and Zyprexa 2.5 mg QAM and qPM at 1400 Psychiatry also recommended starting gabapentin -now on 100mg po qAM and 400mg po hs Added zyprexa 2.5mg IM Qhrs prn agitation (2) Thiamine deficiency: Plan: B1 on admission low, 7 Thiamine IV 500 mg Q8 x6 bags given Transitioned to 200 mg PO daily 08/18 (3) Atrial fibrillation: Plan: History of permanent A-fib on Eliquis Remained in rate controlled A-fib on telemetry, now since downgraded to med/surg unit Continue Eliquis No significant findings on echo Metoprolol decreased from 50mg daily to 12.5mg due to AM hypotension likely caused by clonidine (4) Diabetes mellitus: Plan: Controlled with metformin at home; Held on admission Recent A1c 6.2% Continue ADA diet With minimal insulin requirement and glucose stable, discontinued supplemental NovoLog 08/16 (5) Laceration of forehead: Plan: s/p mechanical fall 08/08 with lac to left forehead Sutures removed 08/16 and appears well healed Plan Chronic stable diagnoses: BPH - continue Flomax, no acute issues GERD - continue Pepcid Hyperlipidemia- continue statin VTE ppx: Eliquis Diet: DM type II diet Code status: full Dispo: continued stay on Med Surg, medically stable for discharge back to [facility] now that acute psychiatric issues resolved-awaiting approval from LEANNE at [facility] Admission and Anticipated Discharge Date Admission Date: August 08, 2024 Subjective Pt appears at baseline level of pleasant confusion. Reported by nurse that he is constepated. Review of Systems Review of Systems: CONST: Negative for fever, body aches and chills. HENT: Negative for neck pain/stiffness, headache, congestion, sore throat, swelling. EYES: Negative for discharge/pain or vision changes. RESP: Negative for cough/hemoptysis and shortness of breath. CV: Negative chest pain, difficulty breathing, palpitations. ABD: Negative pain, nausea, vomiting. : Negative increase frequency, dysuria, blood in urine or stool. MUSC: Negative for muscle aches, edema. SKIN: Negative rash, lesions/sores. NEURO: Negative headache, dizziness, weakness. Physical Exam Physical Exam: GENERAL APPEARANCE NAD, activity normal for age, well developed/ well nourished, no cyanosis, pallor, or diaphoresis. EYES lids/conjunctiva normal. EARS/NOSE/THROAT Mucous membranes moist, nares normal, lips/teeth normal uvula midline without oral pharyngeal erythema, exudate or swelling TMs normal bilaterally. No lymphangitis/lymphedema. HEAD/NECK normocephalic atraumatic, no facial trauma, neck is supple. RESPIRATORY respiratory effort normal, speaks in full sentences, no tripod position, no accessory muscle use. Lungs clear to auscultation without rhonchi, wheezes, rales CARDIAC Regular rate and rhythm, no edema. ABDOMINAL Soft, ND/NT. No evidence of fluid wave. No pulsatile masses on exam, rebound tenderness, Diaz sign or pain over Mcburney's point. MUSCLES/EXTREMITIES No abnormal range of motion, no swelling. SKIN Warm, pink and dry. No rashes, dermatoses, petechiae or lesions. NEUROLOGICAL Confused. Gait and coordination are normal. 5/5 strength in all extremities. PSYCH Confused. Results & Data Results & Data Vital Signs (Past 12 Hours) Vital Signs Temp Pulse Resp BP Pulse Ox O2 Del Method 09/04/24 09:06 36.5 C 61 20 135/85 94 Room Air PG Care Time/CCT Total # of Minutes Spent Total Time Spent with Patient: Total time spent is greater than 50% in coordination of care (as documented) at patient's floor/unit and/or counseling patient: Coding Level of Care Code 50448 SUB INP/OBS CARE 2/35MIN Diagnoses Alzheimer dementia with behavioral disturbance G30.9; F02.818 Thiamine deficiency E51.9 Atrial fibrillation I48.91 Diabetes mellitus E11.9 Laceration of forehead S01.81XA Encounter type: initial encounter (5) Laceration of forehead Encounter type: initial encounter Qualified Code(s): S01.81XA - Laceration without foreign body of other part of head, initial encounter
[2024-09-04] MEDS: MAGNESIUM HYDROXIDE SUSP 30 ML UDC PO PRN (13:20)
[2024-09-04] MEDS: MINERAL OIL ENEMA 133 ML BTL PR ONE (15:19)
[2024-09-04] MEDS: DOCUSATE SODIUM 100 MG CAP PO SCH (20:01)
--- NOTE | 2024-09-05 13:20 | Hospitalist Progress Note ---
Date of Service September 05, 2024 Assessment & Plan (1) Alzheimer dementia with behavioral disturbance: Plan: Encephalopathy/delirium Resides at [facility] dementia unit Psychiatry consulted-appreciate recommendations Discontinued home Seroquel, risperidone, Aricept, and Namenda 1:1 lifted 08/18 1330 and not needed since, much improved Continue Sertraline 100 mg Since admission, started Clonidine 0.1 mg HS, Zyprexa 10 mg HS, and Zyprexa 2.5 mg QAM and qPM at 1400 Psychiatry also recommended starting gabapentin -now on 100mg po qAM and 400mg po hs Added zyprexa 2.5mg IM Qhrs prn agitation (2) Thiamine deficiency: Plan: B1 on admission low, 7 Thiamine IV 500 mg Q8 x6 bags given Transitioned to 200 mg PO daily 08/18 (3) Atrial fibrillation: Plan: History of permanent A-fib on Eliquis Remained in rate controlled A-fib on telemetry, now since downgraded to med/surg unit Continue Eliquis No significant findings on echo Metoprolol decreased from 50mg daily to 12.5mg due to AM hypotension likely caused by clonidine (4) Diabetes mellitus: Plan: Controlled with metformin at home; Held on admission Recent A1c 6.2% Continue ADA diet With minimal insulin requirement and glucose stable, discontinued supplemental NovoLog 08/16 (5) Laceration of forehead: Plan: s/p mechanical fall 08/08 with lac to left forehead Sutures removed 08/16 and appears well healed Plan C Dispo: medically stable for discharge back to [facility] now that acute psychiatric issues resolved-awaiting approval from LEANNE at [facility] Admission and Anticipated Discharge Date Admission Date: August 08, 2024 Subjective Pt appears at baseline level of pleasant confusion. Review of Systems Review of Systems: CONST: Negative for fever, body aches and chills. HENT: Negative for neck pain/stiffness, headache, congestion, sore throat, swelling. EYES: Negative for discharge/pain or vision changes. RESP: Negative for cough/hemoptysis and shortness of breath. CV: Negative chest pain, difficulty breathing, palpitations. ABD: Negative pain, nausea, vomiting. : Negative increase frequency, dysuria, blood in urine or stool. MUSC: Negative for muscle aches, edema. SKIN: Negative rash, lesions/sores. NEURO: Negative headache, dizziness, weakness. Physical Exam Physical Exam: GENERAL APPEARANCE NAD, activity normal for age, well developed/ well nourished, no cyanosis, pallor, or diaphoresis. EYES lids/conjunctiva normal. EARS/NOSE/THROAT Mucous membranes moist, nares normal, lips/teeth normal uvula midline without oral pharyngeal erythema, exudate or swelling TMs normal bilaterally. No lymphangitis/lymphedema. HEAD/NECK normocephalic atraumatic, no facial trauma, neck is supple. RESPIRATORY respiratory effort normal, speaks in full sentences, no tripod position, no accessory muscle use. Lungs clear to auscultation without rhonchi, wheezes, rales CARDIAC Regular rate and rhythm, no edema. ABDOMINAL Soft, ND/NT. No evidence of fluid wave. No pulsatile masses on exam, rebound tenderness, Diaz sign or pain over Mcburney's point. MUSCLES/EXTREMITIES No abnormal range of motion, no swelling. SKIN Warm, pink and dry. No rashes, dermatoses, petechiae or lesions. NEUROLOGICAL Confused. Gait and coordination are normal. 5/5 strength in all extremities. PSYCH Confused. PG Care Time/CCT Total # of Minutes Spent Total Time Spent with Patient: Total time spent is greater than 50% in coordination of care (as documented) at patient's floor/unit and/or counseling patient: Coding Level of Care Code 43506 SUB INP/OBS CARE 235MIN Diagnoses Alzheimer dementia with behavioral disturbance G30.9; F02.818 Thiamine deficiency E51.9 Atrial fibrillation I48.91 Diabetes mellitus E11.9 Laceration of forehead S01.81XA Encounter type: initial encounter (5) Laceration of forehead Encounter type: initial encounter Qualified Code(s): S01.81XA - Laceration without foreign body of other part of head, initial encounter
--- NOTE | 2024-09-06 07:45 | Hospitalist Progress Note ---
Date of Service September 06, 2024 Assessment & Plan (1) Alzheimer dementia with behavioral disturbance: Plan: Encephalopathy/delirium Resides at [facility] dementia unit Psychiatry consulted-appreciate recommendations Discontinued home Seroquel, risperidone, Aricept, and Namenda 1:1 lifted 08/18 1330 and not needed since, much improved Continue Sertraline 100 mg Since admission, started Clonidine 0.1 mg HS, Zyprexa 10 mg HS, and Zyprexa 2.5 mg QAM and qPM at 1400 Psychiatry also recommended starting gabapentin -now on 100mg po qAM and 400mg po hs Added zyprexa 2.5mg IM Qhrs prn agitation (2) Thiamine deficiency: Plan: B1 on admission low, 7 Thiamine IV 500 mg Q8 x6 bags given Transitioned to 200 mg PO daily 08/18 (3) Atrial fibrillation: Plan: History of permanent A-fib on Eliquis Remained in rate controlled A-fib on telemetry, now since downgraded to med/surg unit Continue Eliquis No significant findings on echo Metoprolol decreased from 50mg daily to 12.5mg due to AM hypotension likely caused by clonidine (4) Diabetes mellitus: Plan: Controlled with metformin at home; Held on admission Recent A1c 6.2% Continue ADA diet With minimal insulin requirement and glucose stable, discontinued supplemental NovoLog 08/16 (5) Laceration of forehead: Plan: s/p mechanical fall 08/08 with lac to left forehead Sutures removed 08/16 and appears well healed Plan Dispo: medically stable for discharge back to [facility] now that acute psychiatric issues resolved-awaiting approval from LEANNE at [facility] Admission and Anticipated Discharge Date Admission Date: August 08, 2024 Subjective Pt appears at baseline level of pleasant confusion. Physical Exam Physical Exam: Patient was interactive but confused For no focal complaints says it was cold, Icovered with blankets thanked me cardiac exam is regular lungs are clear Results & Data Results & Data Vital Signs (Past 12 Hours) Vital Signs Temp Pulse Resp BP Pulse Ox O2 Del Method 09/05/24 21:39 97.9 F 92 H 18 116/74 99 Room Air PG Care Time/CCT Total # of Minutes Spent Total Time Spent with Patient: Total time spent is greater than 50% in coordination of care (as documented) at patient's floor/unit and/or counseling patient: Coding Level of Care Code 67497 SUB INP/OBS CARE MIN Diagnoses Alzheimer dementia with behavioral disturbance G30.9; F02.818 Thiamine deficiency E51.9 Atrial fibrillation I48.91 Diabetes mellitus E11.9 Laceration of forehead S01.81XA Encounter type: initial encounter (5) Laceration of forehead Encounter type: initial encounter Qualified Code(s): S01.81XA - Laceration without foreign body of other part of head, initial encounter
--- NOTE | 2024-09-07 08:45 | Hospitalist Progress Note ---
Date of Service September 07, 2024 Assessment & Plan (1) Alzheimer dementia with behavioral disturbance: Plan: Encephalopathy/delirium Resides at [facility] dementia unit, currently not willing to have pt come back Psychiatry consulted-appreciate recommendations Discontinued home Seroquel, risperidone, Aricept, and Namenda 1:1 lifted 08/18 1330 and not needed since, much improved Continue Sertraline 100 mg Since admission, started Clonidine 0.1 mg HS, Zyprexa 10 mg HS, and Zyprexa 2.5 mg QAM and qPM at 1400 Psychiatry also recommended starting gabapentin -now on 100mg po qAM and 400mg po hs Added zyprexa 2.5mg IM Qhrs prn agitation (2) Thiamine deficiency: Plan: B1 on admission low, 7 Thiamine IV 500 mg Q8 x6 bags given Transitioned to 200 mg PO daily 08/18 (3) Atrial fibrillation: Plan: History of permanent A-fib on Eliquis Remained in rate controlled A-fib on telemetry, now since downgraded to med/surg unit Continue Eliquis No significant findings on echo Metoprolol decreased from 50mg daily to 12.5mg due to AM hypotension likely caused by clonidine (4) Diabetes mellitus: Plan: Controlled with metformin at home; Held on admission Recent A1c 6.2% Continue ADA diet With minimal insulin requirement and glucose stable, discontinued supplemental NovoLog 08/16 (5) Laceration of forehead: Plan: s/p mechanical fall 08/08 with lac to left forehead Sutures removed 08/16 and appears well healed Plan Dispo: medically stable for discharge back to [facility] now that acute psychiatric issues resolved-awaiting approval from LEANNE at [facility] also looking into other units that can manage pt locally Admission and Anticipated Discharge Date Admission Date: August 08, 2024 Subjective Pt appears at baseline level of pleasant confusion. Physical Exam Physical Exam: Patient was interactive but confused For no focal complaints says it was cold, Icovered with blankets thanked me cardiac exam is regular lungs are clear PG Care Time/CCT Total # of Minutes Spent Total Time Spent with Patient: Total time spent is greater than 50% in coordination of care (as documented) at patient's floor/unit and/or counseling patient: Coding Level of Care Code 44032 SUB INP/OBS CARE 11/18MIN Diagnoses Alzheimer dementia with behavioral disturbance G30.9; F02.818 Thiamine deficiency E51.9 Atrial fibrillation I48.91 Diabetes mellitus E11.9 Laceration of forehead S01.81XA Encounter type: initial encounter (5) Laceration of forehead Encounter type: initial encounter Qualified Code(s): S01.81XA - Laceration without foreign body of other part of head, initial encounter
--- NOTE | 2024-09-08 11:35 | Hospitalist Progress Note ---
Date of Service September 08, 2024 Assessment & Plan (1) Alzheimer dementia with behavioral disturbance: Plan: Encephalopathy/delirium Resides at [facility] dementia unit, currently not willing to have pt come back Psychiatry consulted - recommendations below Discontinued home Seroquel, risperidone, Aricept, and Namenda Continue Sertraline 100 mg Since admission, started Clonidine 0.1 mg HS, Zyprexa 10 mg HS, and Zyprexa 2.5 mg QAM and qPM at 1400 Gabapentin 100mg PO AM and 400mg PO HS Zyprexa 2.5mg IM prn for agitation. 1:1 lifted 08/18 1330 and not needed since, much improved (2) Thiamine deficiency: Plan: B1 on admission low, 7 Thiamine IV 500 mg Q8 x6 bags given Transitioned to 200 mg PO daily 08/18 (3) Atrial fibrillation: Plan: History of permanent A-fib on Eliquis Remained in rate controlled A-fib on telemetry, now since downgraded to med/surg unit Continue Eliquis No significant findings on echo Metoprolol decreased from 50mg daily to 12.5mg due to AM hypotension likely caused by clonidine (4) Diabetes mellitus: Plan: Controlled with metformin at home; Held on admission Recent A1c 6.2% Continue ADA diet With minimal insulin requirement and glucose stable, discontinued supplemental NovoLog 08/16 Plan Conditions treated during hospital stay: Forehead laceration: fall 08/08 w/ suture removal 08/16. Appears well healed. Dispo: medically stable for discharge back to [facility] now that acute psychiatric issues resolved-awaiting approval from LEANNE at [facility] also looking into other units that can manage pt locally Admission and Anticipated Discharge Date Admission Date: August 08, 2024 Subjective Patient seen and examined this morning. Patient denied any complaints. He was resting comfortably in bed. Physical Exam Constitutional: WD/WN, vitals as above Eyes: PERRL, conjunctivae normal, anicteric sclerae Psychiatric: oriented to self Results & Data Results & Data Vital Signs (Past 12 Hours) Vital Signs Temp Pulse Resp BP Pulse Ox O2 Del Method 09/08/24 08:09 36.7 C 79 16 126/80 94 Room Air PG Care Time/CCT Total # of Minutes Spent Total Time Spent with Patient: Total time spent is greater than 50% in coordination of care (as documented) at patient's floor/unit and/or counseling patient: Coding Level of Care Code 04904 SUB INP/OBS CARE Diagnoses Alzheimer dementia with behavioral disturbance G30.9; F02.818 Thiamine deficiency E51.9 Atrial fibrillation I48.91 Diabetes mellitus E11.9
--- NOTE | 2024-09-09 09:07 | Hospitalist Progress Note ---
Date of Service September 09, 2024 Assessment & Plan (1) Alzheimer dementia with behavioral disturbance: Plan: Encephalopathy/delirium Resides at [facility] dementia unit, currently not willing to have pt come back Psychiatry consulted - recommendations below Discontinued home Seroquel, risperidone, Aricept, and Namenda Continue Sertraline 100 mg Since admission, started Clonidine 0.1 mg HS, Zyprexa 10 mg HS, and Zyprexa 2.5 mg QAM and qPM at 1400 Gabapentin 100mg PO AM and 400mg PO HS Zyprexa 2.5mg IM prn for agitation. 1:1 lifted 08/18 1330 and not needed since, much improved (2) Thiamine deficiency: Plan: B1 on admission low, 7 Thiamine IV 500 mg Q8 x6 bags given Transitioned to 200 mg PO daily 08/18 (3) Atrial fibrillation: Plan: History of permanent A-fib on Eliquis Remained in rate controlled A-fib on telemetry, now since downgraded to med/surg unit Continue Eliquis No significant findings on echo Metoprolol decreased from 50mg daily to 12.5mg due to AM hypotension likely caused by clonidine (4) Diabetes mellitus: Plan: Controlled with metformin at home; Held on admission Recent A1c 6.2% Continue ADA diet With minimal insulin requirement and glucose stable, discontinued supplemental NovoLog 08/16 Plan Conditions treated during hospital stay: Forehead laceration: fall 08/08 w/ suture removal 08/16. Appears well healed. Dispo: medically stable for discharge back to [facility] now that acute psychiatric issues resolved-awaiting approval from LEANNE at [facility] also looking into other units that can manage pt locally Admission and Anticipated Discharge Date Admission Date: August 08, 2024 Subjective Patient seen and examined this morning. patient offered no complaints today. 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 He did note breakfast was good. Physical Exam Constitutional: WD/WN, vitals as above Eyes: PERRL, conjunctivae normal, anicteric sclerae Psychiatric: oriented to self. Results & Data Results & Data Vital Signs (Past 12 Hours) Vital Signs Temp Pulse Resp BP Pulse Ox O2 Del Method 09/09/24 07:17 36.7 C 95 H 20 116/78 96 Room Air PG Care Time/CCT Total # of Minutes Spent Total Time Spent with Patient: Total time spent is greater than 50% in coordination of care (as documented) at patient's floor/unit and/or counseling patient: Coding Level of Care Code 93363 SUB INP/OBS CARE Diagnoses Alzheimer dementia with behavioral disturbance G30.9; F02.818 Thiamine deficiency E51.9 Atrial fibrillation I48.91 Diabetes mellitus E11.9
[2024-09-09] MEDS: APIXABAN 5 MG TABLET PO SCH (19:54)
[2024-09-09] MEDS: ACETAMINOPHEN 325 MG TAB PO PRN (22:48)
[2024-09-10 05:58] LABS: Albumin Globulin Ratio 1.2 (0.9-2); Albumin Level 3.3 gm/dl (3.4-5.0); BUN Creatinine Ratio 26.1 (10-20); Bilirubin,Total 0.7 mg/dl (0.2-1.0); Creatinine Clr Calc Pharmacy 85.8 ml/min; Globulin 2.8 gm/dl (2.5-4.0); Potassium 3.8 mmol/L (3.5-5.1); Total Protein 6.1 gm/dl (6.0-8.3)
--- NOTE | 2024-09-10 11:20 | Hospitalist Progress Note ---
Date of Service September 10, 2024 Assessment & Plan (1) Alzheimer dementia with behavioral disturbance: Plan: Encephalopathy/delirium Resides at [facility] dementia unit, currently not willing to have pt come back Psychiatry consulted - recommendations below Discontinued home Seroquel, risperidone, Aricept, and Namenda Continue Sertraline 100 mg Since admission, started Clonidine 0.1 mg HS, Zyprexa 10 mg HS, and Zyprexa 2.5 mg QAM and qPM at 1400 Gabapentin 100mg PO AM and 400mg PO HS Zyprexa 2.5mg IM prn for agitation. 1:1 lifted 08/18 1330 and not needed since, much improved Decreased urine output 09/10, urine culture needs obtained. order placed, await collection and results. (2) Atrial fibrillation: Plan: History of permanent A-fib on Eliquis Remained in rate controlled A-fib on telemetry, now since downgraded to med/surg unit Continue Eliquis No significant findings on echo Metoprolol decreased from 50mg daily to 12.5mg due to AM hypotension likely caused by clonidine Patient bradycardic and hypotensive 09/09, altered in behavior, much more lethargic per staff placed back on telemetry due to EKG nursing did at bedside that was concern for pacemaker failure pacemaker interrogation completed cardiology consulted, discussed via Chema almeida/ Dr. Zaman - interrogation consistent with A fib could consider downgrade back to med surg if patient maintains stable telemetry over next 24 hours. (3) Thiamine deficiency: Plan: B1 on admission low, 7 Thiamine IV 500 mg Q8 x6 bags given Transitioned to 200 mg PO daily 08/18 (4) Diabetes mellitus: Plan: Controlled with metformin at home; Held on admission Recent A1c 6.2% Continue ADA diet With minimal insulin requirement and glucose stable, discontinued supplemental NovoLog 08/16 Plan Conditions treated during hospital stay: Forehead laceration: fall 08/08 w/ suture removal 08/16. Appears well healed. Dispo: medically stable for discharge back to [facility] now that acute psychiatric issues resolved-awaiting approval from LEANNE at [facility] also looking into other units that can manage pt locally Admission and Anticipated Discharge Date Admission Date: August 08, 2024 Subjective patient seen and examined this morning. patient eating breakfast at time of encounter with assistance of a nursing consultant to feed him. he denied any complaints today. Physical Exam Constitutional: WD/WN, vitals as above Eyes: PERRL, conjunctivae normal, anicteric sclerae Psychiatric: alert to self Results & Data Results & Data Vital Signs (Past 12 Hours) Vital Signs Temp Pulse Pulse Resp BP Pulse Ox O2 Del Method 09/10/24 07:35 36.3 C L 68 18 117/82 96 Room Air 09/10/24 07:33 60 09/10/24 04:33 36 C L 60 18 121/79 94 Room Air PG Care Time/CCT Total # of Minutes Spent Total Time Spent with Patient: Total time spent is greater than 50% in coordination of care (as documented) at patient's floor/unit and/or counseling patient: Coding Level of Care Code 35764 SUB INP/OBS CARE 2/35MIN Diagnoses Alzheimer dementia with behavioral disturbance G30.9; F02.818 Atrial fibrillation I48.91 Thiamine deficiency E51.9 Diabetes mellitus E11.9
--- NOTE | 2024-09-10 14:40 | Cardiology Consultation ---
Date of Consultation September 10, 2024 Assessment & Plan (1) S/P placement of cardiac pacemaker: (2) Paroxysmal atrial fibrillation: (3) CAD (coronary artery disease): Plan ASSESSMENT/PLAN: 1. Dual-chamber pacemaker: [place]. Appears to be appropriately functioning. Automated mode switches likely due to atrial fibrillation or atrial tachycardia. Would defer to electrophysiology for formal review on discharge. He should follow-up with his primary human resources supervisor. 2. Paroxysmal atrial fibrillation: Has been in sinus rhythm on telemetry here with intermittent atrial pacing. Continue anticoagulation for stroke risk reduction. Continue beta-jose. Unclear if he is symptomatic. Unclear of historical details of his atrial fibrillation as he is unable to give significant history. Monitor CBC and renal function. 3. CAD: Listed on admitting history and physical. His cardiac history is unknown to me at the time of this note and he is unable to give significant history. If he has coronary disease, would recommend statin therapy. 4. Bradycardia: His perceived heart rate of 44 was likely pulse deficit in the setting of ectopy. There is no evidence of bradycardia. 5. Altered mental status: No cardiac etiology noted to account for his presentation. 6. Disposition: Cardiology will sign off. Patient care communicated with ordering provider, Daly Nolasco PA-C. Thank you for allowing me to participate in the care of your patient. Please call for any other questions or concerns. Sincerely, Jarrod Zaman M.D. History of Present Illness Reason for Consultation: "Concern pacemaker failure" Requesting Physician: Daly Nolasco PA-C Attending Physician: Delonte Pitts History of Present Illness Mr. Koch is a pleasant 74-year-old gentleman with a history significant for atrial fibrillation, Alzheimer's dementia, sleep apnea, type 2 diabetes, hypertension, dual-chamber pacemaker, and CAD. He is followed by outside cardiology, however he could not remember where. He believes it is near the [facility]. He is a poor historian unable to give much history. He denies chest pain, shortness of breath, edema, palpitations, syncope, or near syncope. He was hospitalized on 08/08/2024 with agitation and altered mental status per records. He was apparently demonstrating combative behavior at [facility] and required physical restraint by police. While here, he was on a nontelemetry floor and there was concern for bradycardia according to primary hospitalist service. There is a charted pulse of 44 bpm. An ECG done at that time was personally reviewed and demonstrated sinus rhythm with PACs at 87 bpm. Pacemaker interrogation was performed on 09/09/2024. Review of systems: As above. Family history: Unobtainable. Poor historian. Social history: Denies smoking history. Occasional alcohol. States that he lives near [place], alone. No children. He was unaccompanied. Allergies Allergy/AdvReac Type Severity Reaction Status Date / Time Penicillins Allergy Unknown Unknown - Unverified 08/09/24 17:41 On med list w/ [facility] levofloxacin Allergy Unknown Verified 08/09/24 17:41 Home Medications Medication Instructions Recorded Confirmed Type acetaminophen 325 mg tablet 650 mg PO Q6H PRN Pain/Fever 08/09/24 08/09/24 History apixaban 5 mg tablet (Eliquis) 5 mg PO BID 08/09/24 08/09/24 History atorvastatin 20 mg tablet 20 mg PO HS 08/09/24 08/09/24 History bisacodyl 10 mg rectal suppository 10 mg [place] DAILY PRN Constipation 08/09/24 08/09/24 History (Dulcolax (bisacodyl)) cholecalciferol (vitamin D3) 25 25 mcg PO DAILY 08/09/24 08/09/24 History mcg (1,000 unit) tablet coenzyme Q10 100 mg capsule 200 mg PO DAILY 08/09/24 08/09/24 History (CoQ-10) donepezil 5 mg tablet 10 mg PO HS 08/09/24 08/09/24 History haloperidol 2 mg tablet 2 mg PO Q6H PRN 08/09/24 08/09/24 History Agitation/Aggression magnesium hydroxide 400 mg/5 mL 2,400 mg PO DAILY PRN Constipation 08/09/24 08/09/24 History oral suspension (Milk of Magnesia) magnesium oxide 250 mg PO HS 08/09/24 08/09/24 History memantine 10 mg tablet 10 mg PO BID 08/09/24 08/09/24 History metformin 500 mg tablet 500 mg PO DAILY 08/09/24 08/09/24 History metoprolol succinate 25 mg 25 mg PO DAILY 08/09/24 08/09/24 History tablet,extended release 24 hr olanzapine 5 mg tablet (Zyprexa) 5 mg PO Q8H PRN Agitation 08/09/24 08/09/24 H istory quetiapine 25 mg tablet (Seroquel) 25 mg PO BID 08/09/24 08/09/24 History risperidone 1 mg tablet (Risperdal) 1 mg PO DAILY 08/09/24 08/09/24 History sodium phosphates 19 gram-7 118 ml [place] DAILY PRN Constipation 08/09/24 08/09/24 History gram/118 mL enema (Fleet Enema) tamsulosin 0.4 mg capsule (Flomax) 0.4 mg PO DAILY 08/09/24 08/09/24 History vitamin E 1,000 unit tablet 1 tab PO HS 08/09/24 08/09/24 History clonidine HCl 0.1 mg tablet 0.1 mg PO HS #30 tabs 09/06/24 Rx docusate sodium 100 mg capsule 100 mg PO BID #30 caps 09/06/24 Rx gabapentin 100 mg capsule 100 mg PO QAM #30 caps 09/06/24 Rx gabapentin 400 mg capsule 400 mg PO HS #30 caps 09/06/24 Rx metoprolol succinate 50 mg 12.5 mg (1/4 x 50 mg) PO QAM #30 09/06/24 Rx tablet,extended release 24 hr tabs olanzapine 2.5 mg tablet 2.5 mg PO 1400 #30 tabs 09/06/24 Rx olanzapine 2.5 mg tablet 2.5 mg PO QAM #30 tabs 09/06/24 Rx olanzapine 5 mg tablet 12.5 mg (2.5 x 5 mg) PO HS #30 tabs 09/06/24 Rx sertraline 100 mg tablet 100 mg PO QAM #30 tabs 09/06/24 Rx thiamine HCl (vitamin B1) 100 mg 200 mg (2 x 100 mg) PO QAM #30 tabs 09/06/24 Rx tablet Problem List (Updated 09/10/24 @ 14:47 by Rodrick Zaman MD) CAD (coronary artery disease) Paroxysmal atrial fibrillation S/P placement of cardiac pacemaker Quezada dual chamber QT prolongation Thiamine deficiency Laceration of forehead (Acute) Uvulitis (Acute) Alzheimer dementia with behavioral disturbance (Acute) Obstructive sleep apnea Atrial fibrillation BPH (benign prostatic hyperplasia) Diabetes mellitus Patient History Social History Smoking Status: Unknown if ever smoked Preferred Language: Arabic Communication Ability: Impaired Current Living Situation: [facility] Other Information That Helps Us Care for You: No Feels Safe at Home: Declines to Answer Assistive Devices: None Physical Exam Physical Exam: Gen.: No acute distress. Alert and oriented to self only. HEENT: Kept his eyes closed. Neck: No JVD. No bruits. Cardiac: Regular. Normal S1-S2. No murmurs, rubs, or gallops. Pulmonary: Clear to auscultation bilaterally without wheezes, rales, or rhonchi. Abdomen: Soft, nontender, nondistended, with normoactive bowel sounds. No bruits noted. Extremities: 2+ radial pulses bilaterally. 2+ posterior tibialis pulses bilaterally. No edema or cyanosis. Results & Data Vital Signs (Past 12 Hours) Vital Signs Temp Pulse Pulse Resp BP Pulse Ox O2 Del Method 09/10/24 11:37 36.5 C 65 18 118/80 96 Room Air 09/10/24 07:35 36.3 C L 68 18 117/82 96 Room Air 09/10/24 07:33 60 09/10/24 04:33 36 C L 60 18 121/79 94 Room Air Intake & Output 09/08/24 09/09/24 09/10/24 09/11/24 06:59 06:59 06:59 06:59 Intake Total 420 / 420 200 / 200 450 / 450 300 / 300 Output Total 300 / 300 200 / 200 300 / 300 Balance 420 / 420 -100 / -100 250 / 250 0 / 0 Laboratory Results Laboratory Results - last 24 hr 09/10/24 04:31 Sodium 140 Potassium 3.8 Chloride 108 H Carbon Dioxide 25 Anion Gap 7 BUN 23 Creatinine 0.88 Est Cr Clr Drug Dosing 85.8 eGFR 91.36 BUN/Creatinine Ratio 26.1 H Glucose 115 H Calcium 9.0 Total Bilirubin 0.7 AST 17 ALT 13 Alkaline Phosphatase 68 Total Protein 6.1 Albumin 3.3 L Globulin 2.8 Albumin/Globulin Ratio 1.2 Diagnostic Findings Labs reviewed and notable for normal potassium, normal renal function, normal transaminase levels. Telemetry personally reviewed: Sinus rhythm with occasional atrial pacing, PACs, and PVCs. Pacemaker interrogation report reviewed: [employer]. Mode is DDDR. Battery lo ngevity estimated 3.3 years. Since 06/20/2024, atrial paced 20% of the time and V paced 41% of the time. There have been 232 mode switches since 06/20/2024. Estimated atrial tachycardia/atrial fibrillation burden since 06/20/2024, 51%. ECG personally reviewed as summarized in HPI. History and physical report reviewed. Medications Administered Current Inpatient Medications Acetaminophen (Acetaminophen 325 Mg Tab) 650 mg PO Q4H PRN PRN Reason: Pain or Fever Stop: 10/09/24 22:39 Last Admin: 09/09/24 22:48 Dose: 650 mg Apixaban (Apixaban 5 Mg Tablet) 5 mg PO BID [facility] Stop: 10/09/24 20:59 Last Admin: 09/10/24 08:09 Dose: 5 mg Clonidine HCl (Clonidine Hcl 0.1 Mg Tab) 0.1 mg PO HS [facility] Stop: 09/14/24 20:59 Last Admin: 09/09/24 19:55 Dose: 0.1 mg Docusate Sodium (Docusate Sodium 100 Mg Cap) 100 mg PO BID [facility] Stop: 10/04/24 20:59 Last Admin: 09/10/24 08:09 Dose: 100 mg Gabapentin (Gabapentin 100 Mg Cap) 100 mg PO QAM [facility] Stop: 09/28/24 08:59 Last Admin: 09/10/24 08:09 Dose: 100 mg Gabapentin (Gabapentin 400 Mg Cap) 400 mg PO HS [facility] Stop: 09/29/24 20:59 Last Admin: 09/09/24 19:55 Dose: 400 mg Magnesium Hydroxide (Magnesium Hydroxide Susp 30 Ml Udc) 30 ml PO Q6H PRN PRN Reason: Constipation Stop: 10/04/24 11:16 Last Admin: 09/04/24 13:20 Dose: 30 ml Melatonin (Melatonin 3 Mg Tab) 3 mg PO HS PRN PRN Reason: Sleep Stop: 09/26/24 21:04 Last Admin: 09/09/24 19:57 Dose: 3 mg Metoprolol Succinate (Metoprolol Succ 50mg Ext Rel Tab) 12.5 mg PO QAM [facility] Stop: 09/17/24 08:59 Last Admin: 09/10/24 08:09 Dose: 12.5 mg Olanzapine (Olanzapine 2.5 Mg Tab) 2.5 mg PO QAM [facility] Stop: 09/16/24 08:59 Last Admin: 09/10/24 08:09 Dose: 2.5 mg Olanzapine (Olanzapine 2.5 Mg Tab) 2.5 mg PO 1400 [facility] Stop: 09/25/24 13:59 Last Admin: 09/10/24 14:43 Dose: 2.5 mg Olanzapine (Olanzapine 5 Mg Tablet) 12.5 mg PO HS [facility] Stop: 09/29/24 20:59 Last Admin: 09/09/24 19:54 Dose: 12.5 mg Olanzapine (Olanzapine 10 Mg/2.1 Ml Sdv) 2.5 mg IM Q6H PRN PRN Reason: Agitation Stop: 10/01/24 10:29 Last Admin: 09/06/24 16:10 Dose: 2.5 mg Sertraline HCl (Sertraline Hcl 100 Mg Tablet) 100 mg PO QAM [facility] Stop: 09/13/24 09:44 Last Admin: 09/10/24 08:09 Dose: 100 mg Thiamine HCl (Thiamine Hcl 100 Mg Tab) 200 mg PO QAM [facility] Stop: 09/17/24 08:59 Last Admin: 09/10/24 08:09 Dose: 200 mg PG Care Time/CCT Total # of Minutes Spent Total Time Spent with Patient: Total time spent is greater than 50% in coordination of care (as documented) at patient's floor/unit and/or counseling patient: Coding Level of Care Code 97820 INT INP/OBS CARE 2/55MIN Diagnoses S/P placement of cardiac pacemaker Z95.0 Paroxysmal atrial fibrillation I48.0 CAD (coronary artery disease) I25.10
[2024-09-11 05:48] LABS: Appearance Urine Clear (Clear); Bacteria Urine Automated None Seen (None Seen); Bilirubin Urine 1+ (Negative); Blood Urine Negative (Negative); Cast Urine Automated 0-2 /lpf (0-2); Color Urine Dark Yellow; Epithelial Cell Urine Auto 0-2 /hpf (0-2); Glucose Urine UA Negative (Negative); Ketones Urine 1+ (Negative); Leukocyte Esterase Urine Trace (Negative); Nitrite Urine Negative (Negative); Protein Urine Trace (Negative); RBC Urine Automated 0-2 /hpf (0-2); Specific Gravity Urine 1.035 (1.000-1.030); Urobilinogen Urine Negative (Negative); WBC Urine Automated 0-5 /hpf (0-5)
--- NOTE | 2024-09-11 11:06 | Hospitalist Progress Note ---
Date of Service September 11, 2024 Assessment & Plan (1) Alzheimer dementia with behavioral disturbance: Plan: Encephalopathy/delirium Resides at [facility] dementia unit, currently not willing to have pt come back He is awaiting behavioral health unit placement Psychiatry consulted - recommendations from consultation have been implemented Discontinued home Seroquel, risperidone, Aricept, and Namenda Continue Sertraline 100 mg Since admission, started Clonidine 0.1 mg HS, Zyprexa 10 mg HS, and Zyprexa 2.5 mg QAM and qPM at 1400 Gabapentin 100mg PO AM and 400mg PO HS Zyprexa 2.5mg IM prn for agitation. 1:1 lifted 08/18 - he required one IM dose of 1700 on 09/10/24 for increased behavior, and disucssion with nursing staff, this was effective. He is currently somewhat re-directable, however but short lived. (2) Atrial fibrillation: Plan: History of permanent A-fib on Eliquis- with Dual chamber pacemaker in place- currently sensing and pacing appropriate - atrial paced occasionally and NSR Remained in rate and rythm controlled currently Continue Eliquis as recommended for stroke prevention No significant findings on echo Metoprolol decreased from 50mg daily to 12.5mg due to AM hypotension likely caused by clonidine - as above currently remains with rate and rhythm control - Transfer back to medical floor at this time (3) Thiamine deficiency: Plan: B1 on admission low, 7 Transitioned to 200 mg PO daily 08/18- continue as he is likely unable to keep up with nutritional intake with his Alzheimer (4) Diabetes mellitus: Plan: Controlled with metformin at home; Held on admission Recent A1c 6.2% Continue ADA diet With minimal insulin requirement and glucose stable, discontinued supplemental NovoLog 08/16 - Continue with Ac/HS checks add coverage if >180mg/dl Admission and Anticipated Discharge Date Admission Date: August 08, 2024 Subjective 74 YOM with > 30 day hospital stay secondary to Alzheimer dementia with behavioral disturbances and awaiting placement to a memory care facility. Patient unfortunately continues to require restraints secondary to inability to follow commands, high risk for injury to self with getting up and out of bed, or pulling at lines/tubes. He remains disoriented to place and situation. Patient stable for downgrade to medical unit, as he was placed back on telemetry for concern of low HR. Patient has a pacemaker in place, this was interrogated on 09/09/24 with appropriate function, cardiology note also reviewed. Telemetry reviewed overnight without ectopy, dropped beats, and is with NSR and occasional atrial pace. CODE: FULL Physical Exam Physical Exam: PHYSICAL EXAM: General: awake, yelling, disoriented Head: old scar to left front of head, well healed ENT: PERRL, EOMI, mucous membranes moist Neuro: AAO x 1, speech clear but inappropriate and disoriented, strength intact bilaterally 5/5, Chest: equal rise and fall of the chest, no accessory muscle use, no heaves or thirlls, Clear to auscultation, on room air, Cardiac: Regular rate and rhythm, telemetry reviewed- NSR with atrial pace and occasional PAC, skin warm dry, cap refill <3 seconds, peripheral pulses +2 no JVD, no murmur, no edema GI: NABS x 4 quadrants, soft, nontender to palpation, no rebound, guarding or tenderness : Spontaneously voiding, no pain, no CVA tenderness, Results & Data Results & Data Vital Signs (Past 12 Hours) Vital Signs Temp Pulse Pulse Resp BP Pulse Ox O2 Del Method 09/11/24 08:16 36.2 C L 73 14 116/80 94 Room Air 09/11/24 07:27 97 H 09/11/24 04:00 36.8 C 93 H 20 122/88 96 Room Air 09/10/24 23:28 36.8 C 69 22 137/80 99 Room Air Laboratory Results Abnormal lab results 09/11/24 Range/Units 05:32 Ur Specific [place] 1.035 H (1.000-1.030) Urine Protein Trace H (Negative) Urine Ketones 1+ H (Negative) Urine Bilirubin 1+ H (Negative) Ur Leukocyte Esterase Trace H (Negative) Medications Administered Home Medications acetaminophen 325 mg tablet 650 mg PO Q6H PRN Pain/Fever 08/09/24 [History Confirmed 08/09/24] apixaban 5 mg tablet (Eliquis) 5 mg PO BID 08/09/24 [History Confirmed 08/09/24] atorvastatin 20 mg tablet 20 mg PO HS 08/09/24 [History Confirmed 08/09/24] bisacodyl 10 mg rectal suppository (Dulcolax (bisacodyl)) 10 mg [place] DAILY PRN Constipation 08/09/24 [History Confirmed 08/09/24] cholecalciferol (vitamin D3) 25 mcg (1,000 unit) tablet 25 mcg PO DAILY 08/09/24 [History Confirmed 08/09/24] coenzyme Q10 100 mg capsule (CoQ-10) 200 mg PO DAILY 08/09/24 [History Confirmed 08/09/24] donepezil 5 mg tablet 10 mg PO HS 08/09/24 [History Confirmed 08/09/24] haloperidol 2 mg tablet 2 mg PO Q6H PRN Agitation/Aggression 08/09/24 [History Confirmed 08/09/24] magnesium hydroxide 400 mg/5 mL oral suspension (Milk of Magnesia) 2,400 mg PO DAILY PRN Constipation 08/09/24 [History Confirmed 08/09/24] magnesium oxide 250 mg PO HS 08/09/24 [History Confirmed 08/09/24] memantine 10 mg tablet 10 mg PO BID 08/09/24 [History Confirmed 08/09/24] metformin 500 mg tablet 500 mg PO DAILY 08/09/24 [History Confirmed 08/09/24] metoprolol succinate 25 mg tablet,extended release 24 hr 25 mg PO DAILY 08/09/24 [History Confirmed 08/09/24] olanzapine 5 mg tablet (Zyprexa) 5 mg PO Q8H PRN Agitation 08/09/24 [History Confirmed 08/09/24] quetiapine 25 mg tablet (Seroquel) 25 mg PO BID 08/09/24 [History Confirmed 08/09/24] risperidone 1 mg tablet (Risperdal) 1 mg PO DAILY 08/09/24 [History Confirmed 08/09/24] sodium phosphates 19 gram-7 gram/118 mL enema (Fleet Enema) 118 ml [place] DAILY PRN Constipation 08/09/24 [History Confirmed 08/09/24] tamsulosin 0.4 mg capsule (Flomax) 0.4 mg PO DAILY 08/09/24 [History Confirmed 08/09/24] vitamin E 1,000 unit tablet 1 tab PO HS 08/09/24 [History Confirmed 08/09/24] clonidine HCl 0.1 mg tablet 0.1 mg PO HS #30 tabs 09/06/24 [Rx] docusate sodium 100 mg capsule 100 mg PO BID #30 caps 09/06/24 [Rx] gabapentin 100 mg capsule 100 mg PO QAM #30 caps 09/06/24 [Rx] gabapentin 400 mg capsule 400 mg PO HS #30 caps 09/06/24 [Rx] metoprolol succinate 50 mg tablet,extended release 24 hr 12.5 mg (1/4 x 50 mg) PO QAM #30 tabs 09/06/24 [Rx] olanzapine 2.5 mg tablet 2.5 mg PO 1400 #30 tabs 09/06/24 [Rx] olanzapine 2.5 mg tablet 2.5 mg PO QAM #30 tabs 09/06/24 [Rx] olanzapine 5 mg tablet 12.5 mg (2.5 x 5 mg) PO HS #30 tabs 09/06/24 [Rx] sertraline 100 mg tablet 100 mg PO QAM #30 tabs 09/06/24 [Rx] thiamine HCl (vitamin B1) 100 mg tablet 200 mg (2 x 100 mg) PO QAM #30 tabs 09/06/24 [Rx] Active Medications Acetaminophen (Acetaminophen 325 Mg Tab) 650 mg PO Q4H PRN PRN Reason: Pain or Fever Stop: 10/09/24 22:39 Last Admin: 09/09/24 22:48 Dose: 650 mg Apixaban (Apixaban 5 Mg Tablet) 5 mg PO BID [facility] Stop: 10/09/24 20:59 Last Admin: 09/11/24 08:01 Dose: 5 mg Clonidine HCl (Clonidine Hcl 0.1 Mg Tab) 0.1 mg PO HS [facility] Stop: 09/14/24 20:59 Last Admin: 09/10/24 19:32 Dose: 0.1 mg Docusate Sodium (Docusate Sodium 100 Mg Cap) 100 mg PO BID [facility] Stop: 10/04/24 20:59 Last Admin: 09/11/24 08:01 Dose: 100 mg Gabapentin (Gabapentin 100 Mg Cap) 100 mg PO QAM [facility] Stop: 09/28/24 08:59 Last Admin: 09/10/24 19:33 Dose: 100 mg Gabapentin (Gabapentin 400 Mg Cap) 400 mg PO HS [facility] Stop: 09/29/24 20:59 Last Admin: 09/10/24 19:33 Dose: 400 mg Magnesium Hydroxide (Magnesium Hydroxide Susp 30 Ml Udc) 30 ml PO Q6H PRN PRN Reason: Constipation Stop: 10/04/24 11:16 Last Admin: 09/11/24 03:35 Dose: 30 ml Melatonin (Melatonin 3 Mg Tab) 3 mg PO HS PRN PRN Reason: Sleep Stop: 09/26/24 21:04 Last Admin: 09/09/24 19:57 Dose: 3 mg Metoprolol Succinate (Metoprolol Succ 50mg Ext Rel Tab) 12.5 mg PO QAM [facility] Stop: 09/17/24 08:59 Last Admin: 09/11/24 08:01 Dose: 12.5 mg Olanzapine (Olanzapine 2.5 Mg Tab) 2.5 mg PO QAM [facility] Stop: 09/16/24 08:59 Last Admin: 09/11/24 08:01 Dose: 2.5 mg Olanzapine (Olanzapine 2.5 Mg Tab) 2.5 mg PO 1400 [facility] Stop: 09/25/24 13:59 Last Admin: 09/10/24 14:43 Dose: 2.5 mg Olanzapine (Olanzapine 5 Mg Tablet) 12.5 mg PO HS [facility] Stop: 09/29/24 20:59 Last Admin: 09/10/24 19:32 Dose: 12.5 mg Olanzapine (Olanzapine 10 Mg/2.1 Ml Sdv) 2.5 mg IM Q6H PRN PRN Reason: Agitation Stop: 10/01/24 10:29 Last Admin: 09/10/24 17:04 Dose: 2.5 mg Sertraline HCl (Sertraline Hcl 100 Mg Tablet) 100 mg PO QAM [facility] Stop: 09/13/24 09:44 Last Admin: 09/11/24 08:01 Dose: 100 mg Thiamine HCl (Thiamine Hcl 100 Mg Tab) 200 mg PO QAM [facility] Stop: 09/17/24 08:59 Last Admin: 09/11/24 08:01 Dose: 200 mg PG Care Time/CCT Total # of Minutes Spent Total Time Spent with Patient: Total time spent is greater than 50% in coordination of care (as documented) at patient's floor/unit and/or counseling patient: Coding Level of Care Code 08106 SUB INP/OBS CARE 2/35MIN Diagnoses Alzheimer dementia with behavioral disturbance G30.9; F02.818 Atrial fibrillation I48.91 Thiamine deficiency E51.9 Diabetes mellitus E11.9
--- NOTE | 2024-09-11 13:37 | Electrocardiogram Report ---
Test Reason : Blood Pressure : */* mmHG Vent. Rate : 87 BPM Atrial Rate : 87 BPM P-R Int : 210 ms QRS Dur : 100 ms QT Int : 230 ms P-R-T Axes : 18 -31 161 degrees QTcB Int : 276 ms Sinus rhythm with 1st degree A-V block with Premature atrial complexes in a pattern of bigeminy Left axis deviation Nonspecific ST and T wave abnormality Abnormal ECG When compared with ECG of 16-Aug-2024 18:03, Sinus rhythm has replaced atrial pacing Confirmed by Rodrick Zaman ([id number]) on 09/11/2024 1:37:22 PM Referred By: REFERRED SELF Confirmed By: Rodrick Zaman
[2024-09-12 06:26] LABS: BUN Creatinine Ratio 26.8 (10-20); Calcium 8.9 mg/dl (8.6-10.3); Creatinine Clr Calc Pharmacy 106.3 ml/min; Potassium 3.5 mmol/L (3.5-5.1)
--- NOTE | 2024-09-12 18:26 | Hospitalist Progress Note ---
Date of Service September 12, 2024 Assessment & Plan (1) Alzheimer dementia with behavioral disturbance: Plan: Encephalopathy/delirium Resides at [facility] dementia unit, currently not willing to have pt come back Psychiatry consulted - recommendations below Discontinued home Seroquel, risperidone, Aricept, and Namenda Continue Sertraline 100 mg Since admission, started Clonidine 0.1 mg HS, Zyprexa 10 mg HS, and Zyprexa 2.5 mg QAM and qPM at 1400 Gabapentin 100mg PO AM and 400mg PO HS Zyprexa 2.5mg IM prn for agitation. 1:1 lifted 08/18 and not needed since, much improved Decreased urine output 09/10, UA unremarkable, no reflex culture (2) Atrial fibrillation: Plan: History of permanent A-fib on Eliquis Remained in rate controlled A-fib on telemetry, now since downgraded to med/surg unit Continue Eliquis No significant findings on echo Metoprolol decreased from 50mg daily to 12.5mg due to AM hypotension likely caused by clonidine Patient bradycardic and hypotensive 09/09, altered in behavior, much more lethargic per staff - placed back on telemetry due to EKG nursing did at bedside that was concern for pacemaker failure > pacemaker interrogation completed > cardiology consulted, discussed via Chema almeida/ Dr. Zaman - interrogation consistent with A fib - remained stable and transferred back to med/surg 09/11 (3) Thiamine deficiency: Plan: B1 on admission low, 7 Thiamine IV 500 mg Q8 x6 bags given Transitioned to 200 mg PO daily 08/18 (4) Diabetes mellitus: Plan: Controlled with metformin at home; Held on admission Recent A1c 6.2% Continue ADA diet With minimal insulin requirement and glucose stable, discontinued supplemental NovoLog 08/16 Plan Conditions treated during hospital stay: - Forehead laceration: fall 08/08 w/ suture removal 08/16. Appears well healed. Dispo: medically stable for discharge back to [facility] now that acute psychiatric issues resolved-awaiting approval from LEANNE at [facility] also looking into other units that can manage pt locally Meds renewed through 10/24 CODE STATUS: Full code Admission and Anticipated Discharge Date Admission Date: August 08, 2024 Supervising Physician Co-Signing Physician Notes PA Supervision Note: I did not personally see or examine the patient today, but I verified all stoll points of PA Gross's assessment and plan with the following exceptions/additions: None Subjective Patient seen and evaluated bedside. He was in soft limb restraints this morning until approximately 10:30 AM. Since having them removed, he has remained calm and cooperative with staff. He is conversationally tangential, but denied any acute complaints. Per RN, he did have a small bowel movement today. No additional complaints or concerns at this time. Physical Exam Physical Exam: General: No acute distress, nondiaphoretic, well-developed, well-nourished. Skin: The skin was without rashes, erythema, edema, or bruising. Old scar to left front of head, well healed. Cardiac: Regular rate and rhythm without murmurs gallops or rubs. Pulm: Clear to auscultation bilaterally without wheezes, rales or rhonchi. No respiratory distress. 97% on room air. Abdominal: Soft, nontender, nondistended. Bowel sounds present. Neuro: A&O x2 (person and time). No focal neurological deficits. Speech is clear but tangential. Strength intact bilaterally 5/5. Results & Data Results & Data Vital Signs (Past 12 Hours) Vital Signs Temp Pulse Resp BP Pulse Ox O2 Del Method 09/12/24 14:00 99.3 F 80 18 123/76 97 Room Air 09/12/24 07:29 97.9 F 88 20 115/79 92 Room Air Laboratory Results Reviewed BMP PG Care Time/CCT Total # of Minutes Spent Total Time Spent with Patient: Total time spent is greater than 50% in coordination of care (as documented) at patient's floor/unit and/or counseling patient: Coding Level of Care Code 21079 SUB INP/OBS CARE 2/35MIN Diagnoses Alzheimer dementia with behavioral disturbance G30.9; F02.818 Atrial fibrillation I48.91 Thiamine deficiency E51.9 Diabetes mellitus E11.9
[2024-09-13 11:53] LABS: Creatinine Clr Calc Pharmacy 79.4 ml/min
--- NOTE | 2024-09-13 14:05 | Hospitalist Progress Note ---
Date of Service September 13, 2024 Assessment & Plan (1) Alzheimer dementia with behavioral disturbance: Plan: Encephalopathy/delirium Resides at [facility] dementia unit, currently not willing to have pt come back Psychiatry consulted - recommendations below Discontinued home Seroquel, risperidone, Aricept, and Namenda Continue Sertraline 100 mg Since admission, started Clonidine 0.1 mg HS, Zyprexa 10 mg HS, and Zyprexa 2.5 mg QAM and qPM at 1400 Gabapentin 100mg PO AM and 400mg PO HS Zyprexa 2.5mg IM prn for agitation. 1:1 lifted 08/18 and not needed since, much improved Decreased urine output 09/10, UA unremarkable, no reflex culture (2) Oral candidiasis: Plan: Scattered, non-confluent white plaques consistent with thrush on tongue - Given multiple QTc prolonging medications, opted for Nystatin over fluconazole - Started/continue Nystatin 10 mg suspension QID (3) Cellulitis of left elbow: Plan: Scabbed abrasion noted on left elbow with surrounding erythema and warmth. Patient does not recall any injuries, denies pain - Full passive and active ROM of left elbow - Started/continue Keflex 500 mg BID x 7 days (4) Atrial fibrillation: Plan: History of permanent A-fib on Eliquis Remained in rate controlled A-fib on telemetry, now since downgraded to med/surg unit Continue Eliquis No significant findings on echo Metoprolol decreased from 50mg daily to 12.5mg due to AM hypotension likely caused by clonidine Patient bradycardic and hypotensive 09/09, altered in behavior, much more lethargic per staff - placed back on telemetry due to EKG nursing did at bedside that was concern for pacemaker failure > pacemaker interrogation completed > cardiology consulted, discussed via Chema w/ Dr. Zaman - interrogation consistent with A fib - remained stable and transferred back to med/surg 09/11 (5) Diabetes mellitus: Plan: Controlled with metformin at home; Held on admission Recent A1c 6.2% Continue ADA diet With minimal insulin requirement and glucose stable, discontinued supplemental NovoLog 08/16 Plan Ordered Nystatin Ordered Keflex Conditions treated during hospital stay: - Forehead laceration: fall 08/08 w/ suture removal 08/16. Appears well healed. - Thiamine deficiency: Thiamine IV 500 mg Q8 x6 bags given. Transitioned to 200 mg PO daily 08/18 Dispo: medically stable for discharge back to [facility] now that acute psychiatric issues resolved-awaiting approval from LEANNE at [facility] also looking into other units that can manage pt locally Meds renewed through 10/24 CODE STATUS: Full code Admission and Anticipated Discharge Date Admission Date: August 08, 2024 Supervising Physician Co-Signing Physician Notes PA Supervision Note: I did not personally see or examine the patient today, but I verified all stoll points of REBEKAH Montes's assessment and plan with the following exceptions/additions: None Subjective Patient seen and evaluated at bedside. He continues to have tangential, nonsensical speech. He remains cooperative today and has not been aggressive or combative with staff. He has no required further restraints and has been out of restraints for >24 hours. Per RN, patient had extremely incontinent large bowel movement today. Physical Exam Physical Exam: General: No acute distress, nondiaphoretic, well-developed, well-nourished. Skin: Old scar to left front of head, well healed. Scabbed abrasion on left elbow with surrounding erythema and warmth. Scattered, non-confluent white plaques consistent with thrush on tongue. Cardiac: Regular rate and rhythm without murmurs gallops or rubs. Pulm: Clear to auscultation bilaterally without wheezes, rales or rhonchi. No respiratory distress. 95% on room air. Abdominal: Soft, nontender, nondistended. Bowel sounds present. Neuro: A&O x1 (person). No focal neurological deficits. Speech is clear but tangential. Strength intact bilaterally 5/5. Results & Data Results & Data Vital Signs (Past 12 Hours) Vital Signs Temp Pulse Resp BP Pulse Ox O2 Del Method 09/13/24 11:00 Room Air 09/13/24 07:42 97.9 F 70 16 140/69 95 Room Air PG Care Time/CCT Total # of Minutes Spent Total Time Spent with Patient: Total time spent is greater than 50% in coordination of care (as documented) at patient's floor/unit and/or counseling patient: Coding Level of Care Code 70924 SUB INP/OBS CARE 3/50MIN Diagnoses Alzheimer dementia with behavioral disturbance G30.9; F02.818 Oral candidiasis B37.0 Cellulitis of left elbow L03.114 Atrial fibrillation I48.91 Diabetes mellitus E11.9
[2024-09-13] MEDS: cephALEXin 500 MG CAP PO SCH ×2 (17:06→20:32)
[2024-09-13] MEDS: NYSTATIN SUSP 500,000 U/5 ML UDC PO SCH (17:06)
--- NOTE | 2024-09-14 18:06 | Hospitalist Progress Note ---
Date of Service September 14, 2024 Assessment & Plan (1) Alzheimer dementia with behavioral disturbance: Plan: Encephalopathy/delirium in the setting of severe dementia Resides at [facility] dementia unit, currently not willing to have pt come back Requires assistance with meals and all ADLs Psychiatry consulted - recommendations below Discontinued home Seroquel, risperidone, Aricept, and Namenda Continue Sertraline 100 mg Since admission, started Clonidine 0.1 mg HS, Zyprexa 10 mg HS, and Zyprexa 2.5 mg QAM and qPM at 1400 Gabapentin 100mg PO AM and 400mg PO HS Zyprexa 2.5mg IM prn for agitation. 1:1 lifted 08/18 and not needed since, much improved Decreased urine output 09/10, UA unremarkable, no reflex culture (2) Oral candidiasis: Plan: Scattered, non-confluent white plaques consistent with thrush on tongue, improving - Given multiple QTc prolonging medications, opted for Nystatin over fluconazole - Started/continue Nystatin 10 mg suspension QID (3) Cellulitis of left elbow: Plan: Scabbed abrasion noted on left elbow with surrounding erythema and warmth. Patient does not recall any injuries, denies pain - Full passive and active ROM of left elbow - Started/continue Keflex 500 mg BID x 7 days (4) Atrial fibrillation: Plan: History of permanent A-fib on Eliquis Remained in rate controlled A-fib on telemetry, now since downgraded to med/surg unit Continue Eliquis No significant findings on echo Metoprolol decreased from 50mg daily to 12.5mg due to AM hypotension likely caused by clonidine Patient bradycardic and hypotensive 09/09, altered in behavior, much more lethargic per staff - placed back on telemetry due to EKG nursing did at bedside that was concern for pacemaker failure > pacemaker interrogation completed > cardiology consulted, discussed via Chema w/ Dr. Zaman - interrogation consistent with A fib - remained stable and transferred back to med/surg 09/11 (5) Diabetes mellitus: Plan: Controlled with metformin at home; Held on admission Recent A1c 6.2% Continue ADA diet With minimal insulin requirement and glucose stable, discontinued supplemental NovoLog 08/16 Plan Conditions treated during hospital stay: - Forehead laceration: fall 08/08 w/ suture removal 08/16. Appears well healed. - Thiamine deficiency: Thiamine IV 500 mg Q8 x6 bags given. Transitioned to 200 mg PO daily 08/18 Dispo: medically stable for discharge back to [facility] now that acute psychiatric issues resolved-awaiting approval from LEANNE at [facility] also looking into other units that can manage pt locally Meds renewed through 10/24 CODE STATUS: Full code Admission and Anticipated Discharge Date Admission Date: August 08, 2024 Supervising Physician Co-Signing Physician Notes PA Supervision Note: I did not personally see or examine the patient today, but I verified all stoll points of REBEKAH Montes's assessment and plan with the following exceptions/additions: None Subjective Patient seen and evaluated at bedside. He was sleeping most of today. He has been calm and cooperative when awake today. He has not required further restraints and has been out of restraints for >48 hours. No additional complaints or concerns at this time. Physical Exam Physical Exam: General: No acute distress, nondiaphoretic, well-developed, well-nourished. Skin: Old scar to left front of head, well healed. Scabbed abrasion on left elbow with IMPROVING surrounding erythema. Scattered, non-confluent white plaques consistent with thrush on tongue improving. Cardiac: Regular rate and rhythm without murmurs gallops or rubs. Pulm: Clear to auscultation bilaterally without wheezes, rales or rhonchi. No respiratory distress. 95% on room air. Abdominal: Soft, nontender, nondistended. Bowel sounds present. Neuro: A&O x1 (person). No focal neurological deficits. Speech is clear but tangential. Strength intact bilaterally 5/5. Results & Data Results & Data Vital Signs (Past 12 Hours) Vital Signs Temp Pulse Resp BP BP Pulse Ox O2 Del Method 09/14/24 14:48 98.1 F 63 16 119/79 96 Room Air 09/14/24 10:00 Room Air 09/14/24 09:32 97.5 F L 63 18 133/76 97 Room Air PG Care Time/CCT Total # of Minutes Spent Total Time Spent with Patient: Total time spent is greater than 50% in coordination of care (as documented) at patient's floor/unit and/or counseling patient: Coding Level of Care Code 86888 SUB INP/OBS CARE 2/35MIN Diagnoses Alzheimer dementia with behavioral disturbance G30.9; F02.818 Oral candidiasis B37.0 Cellulitis of left elbow L03.114 Atrial fibrillation I48.91 Diabetes mellitus E11.9
--- NOTE | 2024-09-15 13:36 | Hospitalist Progress Note ---
Date of Service September 15, 2024 Assessment & Plan (1) Alzheimer dementia with behavioral disturbance: Plan: Encephalopathy/delirium in the setting of severe dementia Resides at [facility] dementia unit, currently not willing to have pt come back Requires assistance with meals and all ADLs Psychiatry consulted - recommendations below Discontinued home Seroquel, risperidone, Aricept, and Namenda Continue Sertraline 100 mg Since admission, started Clonidine 0.1 mg HS, Zyprexa 10 mg HS, and Zyprexa 2.5 mg QAM and qPM at 1400 Gabapentin 100mg PO AM and 400mg PO HS Zyprexa 2.5mg IM prn for agitation. 1:1 lifted 08/18 and not needed since, much improved Decreased urine output 09/10, UA unremarkable, no reflex culture (2) Oral candidiasis: Plan: Scattered, non-confluent white plaques consistent with thrush on tongue, improving - Given multiple QTc prolonging medications, opted for Nystatin over fluconazole - Continue Nystatin 10 mg suspension QID (3) Cellulitis of left elbow: Plan: Scabbed abrasion noted on left elbow with surrounding erythema and warmth. Patient does not recall any injuries, denies pain - Full passive and active ROM of left elbow - Continue Keflex x 7 days (4) Atrial fibrillation: Plan: History of permanent A-fib on Eliquis Remained in rate controlled A-fib on telemetry, now since downgraded to med/surg unit Continue Eliquis No significant findings on echo Metoprolol decreased from 50mg daily to 12.5mg due to AM hypotension likely caused by clonidine Patient bradycardic and hypotensive 09/09, altered in behavior, much more lethargic per staff - placed back on telemetry due to EKG nursing did at bedside that was concern for pacemaker failure > pacemaker interrogation completed > cardiology consulted, discussed via Chema w/ Dr. Zaman - interrogation consistent with A fib - remained stable and transferred back to med/surg 09/11 (5) Diabetes mellitus: Plan: Controlled with metformin at home; Held on admission Recent A1c 6.2% Continue ADA diet With minimal insulin requirement and glucose stable, discontinued supplemental NovoLog 08/16 Plan Conditions treated during hospital stay: - Forehead laceration: fall 08/08 w/ suture removal 08/16. Appears well healed. - Thiamine deficiency: Thiamine IV 500 mg Q8 x6 bags given. Transitioned to 200 mg PO daily 08/18 Dispo: medically stable for discharge now that acute psychiatric issues resolved - awaiting acceptance at facility Meds renewed through 10/24 CODE STATUS: Full code Admission and Anticipated Discharge Date Admission Date: August 08, 2024 Supervising Physician Co-Signing Physician Notes PA Supervision Note: I did not personally see or examine the patient today, but I verified all stoll points of REBEKAH Montes's assessment and plan with the following exceptions/additions: None Subjective Patient seen and evaluated at bedside. He has nonsensical speech, but is pleasant and cooperative. Denies pain to his left elbow, mouth, or difficulty/painful swallowing. He denies any complaints or concerns at this time. Physical Exam Physical Exam: General: No acute distress, nondiaphoretic, well-developed, well-nourished. Skin: Old scar to left front of head, well healed. Scabbed abrasion on left elbow with IMPROVING surrounding erythema. Scattered, non-confluent white plaques consistent with thrush on tongue improving. Cardiac: Regular rate and rhythm without murmurs gallops or rubs. Pulm: Clear to auscultation bilaterally without wheezes, rales or rhonchi. No respiratory distress. 97% on room air. Abdominal: Soft, nontender, nondistended. Bowel sounds present. Neuro: A&O x1 (person). No focal neurological deficits. Speech is clear but nonsensical. Strength intact bilaterally 5/5. Results & Data Results & Data Vital Signs (Past 12 Hours) Vital Signs Temp Pulse Resp BP BP Pulse Ox O2 Del Method 09/15/24 11:49 97.7 F 09/15/24 08:09 97.7 F 60 16 144/88 H 97 Room Air 09/15/24 07:22 Room Air 09/15/24 03:30 97.7 F 67 14 131/80 95 Room Air PG Care Time/CCT Total # of Minutes Spent Total Time Spent with Patient: Total time spent is greater than 50% in coordination of care (as documented) at patient's floor/unit and/or counseling patient: Coding Level of Care Code 42453 SUB INP/OBS CARE 2/35MIN Diagnoses Alzheimer dementia with behavioral disturbance G30.9; F02.818 Oral candidiasis B37.0 Cellulitis of left elbow L03.114 Atrial fibrillation I48.91 Diabetes mellitus E11.9
[2024-09-16 06:29] LABS: Hematocrit (blood only) 37.1 % (42.0-52.0); Hemoglobin 12.9 g/dl (14.0-18.0); Mean Corpuscular Hgb Conc 34.8 g/dL (32.0-36.0); Mean Corpuscular Volume 89.2 fL (80.0-100.0); Mean Platelet Volume 9.5 fL (9.4-12.4); Platelet Count 179 K/uL (130-400); RDW Coefficient of Variation 12.1 % (11.5-14.5); RDW Standard Deviation 39.2 fL (36.4-46.3); Red Blood Count 4.16 M/uL (4.70-6.10); White Blood Count 7.16 K/ul (4.8-10.8)
[2024-09-16 06:46] LABS: Creatinine Clr Calc Pharmacy 94.3 ml/min
--- NOTE | 2024-09-16 19:08 | Hospitalist Progress Note ---
Date of Service September 16, 2024 Assessment & Plan (1) Alzheimer dementia with behavioral disturbance: Plan: Encephalopathy/delirium in the setting of severe dementia Resides at [facility] dementia unit, currently not willing to have pt come back Requires assistance with meals and all ADLs Psychiatry consulted - recommendations below Discontinued home Seroquel, risperidone, Aricept, and Namenda Continue Sertraline 100 mg Since admission, started Clonidine 0.1 mg HS, Zyprexa 10 mg HS, and Zyprexa 2.5 mg QAM and qPM at 1400 Gabapentin 100mg PO AM and 400mg PO HS Zyprexa 2.5mg IM prn for agitation. 1:1 lifted 08/18 and not needed since, much improved Decreased urine output 09/10, UA unremarkable, no reflex culture (2) Oral candidiasis: Plan: Scattered, non-confluent white plaques consistent with thrush on tongue, improving - Given multiple QTc prolonging medications, opted for Nystatin over fluconazole - Continue Nystatin 10 mg suspension QID (3) Cellulitis of left elbow: Plan: Scabbed abrasion noted on left elbow with surrounding erythema and warmth. Patient does not recall any injuries, denies pain - Full passive and active ROM of left elbow - Continue Keflex x 7 days (4) Atrial fibrillation: Plan: History of permanent A-fib on Eliquis Remained in rate controlled A-fib on telemetry, now since downgraded to med/surg unit Continue Eliquis No significant findings on echo Metoprolol decreased from 50mg daily to 12.5mg due to AM hypotension likely caused by clonidine Patient bradycardic and hypotensive 09/09, altered in behavior, much more lethargic per staff - placed back on telemetry due to EKG nursing did at bedside that was concern for pacemaker failure > pacemaker interrogation completed > cardiology consulted, discussed via [facility] w/ Dr. Zaman - interrogation consistent with A fib - remained stable and transferred back to med/surg 09/11 (5) Diabetes mellitus: Plan: Controlled with metformin at home; Held on admission Recent A1c 6.2% Continue ADA diet With minimal insulin requirement and glucose stable, discontinued supplemental NovoLog 08/16 Plan Conditions treated during hospital stay: - Forehead laceration: fall 08/08 w/ suture removal 08/16. Appears well healed. - Thiamine deficiency: Thiamine IV 500 mg Q8 x6 bags given. Transitioned to 200 mg PO daily 08/18 Dispo: medically stable for discharge now that acute psychiatric issues resolved - awaiting acceptance at facility Meds renewed through 10/24 CODE STATUS: Full code Admission and Anticipated Discharge Date Admission Date: August 08, 2024 Supervising Physician Co-Signing Physician Notes REBEKAH Supervision Note: I did not personally see or examine the patient today, but I verified all stoll points of REBEKAH Montes's assessment and plan with the following exceptions/additions: None Subjective Patient seen and evaluated in bedside chair while eating lunch. He was sleeping most of the morning. He remains pleasant and cooperative with staff. No acute complaints or concerns at this time. Physical Exam Physical Exam: General: No acute distress, nondiaphoretic, well-developed, well-nourished. Skin: Old scar to left front of head, well healed. Scabbed abrasion on left elbow with IMPROVING surrounding erythema. Scattered, non-confluent white plaques consistent with thrush on tongue improving. Cardiac: Regular rate and rhythm without murmurs gallops or rubs. Pulm: Clear to auscultation bilaterally without wheezes, rales or rhonchi. No respiratory distress. 97% on room air. Abdominal: Soft, nontender, nondistended. Bowel sounds present. Neuro: A&O x1 (person). No focal neurological deficits. Speech is clear but nonsensical. Strength intact bilaterally 5/5. Results & Data Results & Data Vital Signs (Past 12 Hours) Vital Signs Temp Pulse Resp BP Pulse Ox O2 Del Method 09/16/24 16:18 97.9 F 64 16 128/82 97 Room Air 09/16/24 08:38 97.7 F 64 18 148/78 H 97 Room Air 09/16/24 08:00 Room Air Laboratory Results Reviewed CBC PG Care Time/CCT Total # of Minutes Spent Total Time Spent with Patient: Total time spent is greater than 50% in coordination of care (as documented) at patient's floor/unit and/or counseling patient: Coding Level of Care Code 53324 SUB INP/OBS CARE 2/35MIN Diagnoses Alzheimer dementia with behavioral disturbance G30.9; F02.818 Oral candidiasis B37.0 Cellulitis of left elbow L03.114 Atrial fibrillation I48.91 Diabetes mellitus E11.9
[2024-09-17] MEDS: POLYETHYLENE (MIRALAX) 17 GM PACK PO PRN (12:11)
[2024-09-17] MEDS ORDERED: Nursing to Pharmacy Communication SCH (12:30)
[2024-09-17] MEDS: cephALEXin 500 MG CAP PO SCH (16:31)
--- NOTE | 2024-09-17 16:39 | Hospitalist Progress Note ---
Date of Service September 17, 2024 Assessment & Plan (1) Alzheimer dementia with behavioral disturbance: Plan: Encephalopathy/delirium in the setting of severe dementia Resides at [facility] dementia unit, currently not willing to have pt come back Requires assistance with meals and all ADLs Psychiatry consulted - recommendations below Discontinued home Seroquel, risperidone, Aricept, and Namenda Continue Sertraline 100 mg Since admission, started Clonidine 0.1 mg HS, Zyprexa 10 mg HS, and Zyprexa 2.5 mg QAM and qPM at 1400 -- Zyprexa 2.5 mg QAM on HOLD currently due to daytime sedation Gabapentin 100mg PO AM and 400mg PO HS Zyprexa 2.5mg IM prn for agitation. 1:1 lifted 08/18 and not needed since, much improved UA unremarkable, no reflex culture 09/10 Continue bowel regimen and monitor bowel movements; last documented BM on 09/13 Decreased urine output 09/17, will provide NSS maintenance fluid x 1 bag (2) Oral candidiasis: Plan: Scattered, non-confluent white plaques consistent with thrush on tongue, improving - Given multiple QTc prolonging medications, opted for Nystatin over fluconazole - Continue Nystatin 10 mg suspension QID (3) Cellulitis of left elbow: Plan: Scabbed abrasion noted on left elbow with surrounding erythema and warmth. Patient does not recall any injuries, denies pain - Full passive and active ROM of left elbow - Continue Keflex x 7 days (4) Atrial fibrillation: Plan: History of permanent A-fib on Eliquis Remained in rate controlled A-fib on telemetry, now since downgraded to med/surg unit Continue Eliquis No significant findings on echo Metoprolol decreased from 50mg daily to 12.5mg due to AM hypotension likely caused by clonidine Patient bradycardic and hypotensive 09/09, altered in behavior, much more lethargic per staff - placed back on telemetry due to EKG nursing did at bedside that was concern for pacemaker failure > pacemaker interrogation completed > cardiology consulted, discussed via Chema almeida/ Dr. Zaman - interrogation consistent with A fib - remained stable and transferred back to med/surg 09/11 (5) Diabetes mellitus: Plan: Controlled with metformin at home; Held on admission Recent A1c 6.2% Continue ADA diet With minimal insulin requirement and glucose stable, discontinued supplemental NovoLog 08/16 Plan Ordered IV fluids Held AM Seroquel Optimize bowel regimen Conditions treated during hospital stay: - Forehead laceration: fall 08/08 w/ suture removal 08/16. Appears well healed. - Thiamine deficiency: Thiamine IV 500 mg Q8 x6 bags given. Transitioned to 200 mg PO daily 08/18 Dispo: medically stable for discharge now that acute psychiatric issues resolved - awaiting acceptance at facility Meds renewed through 10/24 CODE STATUS: Full code Admission and Anticipated Discharge Date Admission Date: August 08, 2024 Supervising Physician Co-Signing Physician Notes PA Supervision Note: I did not personally see or examine the patient today, but I verified all stoll points of REBEKAH Montes's assessment and plan with the following exceptions/additions: None Subjective Patient seen and evaluated at bedside. He has been very sleepy today. RN reports no urinary output today and bladder scan showed about 230 ml. Patient does not appear to be in any discomfort. Denies any acute complaints then fell back asleep. Physical Exam Physical Exam: General: No acute distress, nondiaphoretic, well-developed, well-nourished. Skin: Old scar to left front of head, well healed. Scabbed abrasion on left elbow with IMPROVING surrounding erythema. Scattered, non-confluent white plaques consistent with thrush on tongue improving. Cardiac: Regular rate and rhythm without murmurs gallops or rubs. Pulm: Clear to auscultation bilaterally without wheezes, rales or rhonchi. No respiratory distress. 95% on room air. Abdominal: Soft, nontender, nondistended. Bowel sounds present. Neuro: A&O x1 (person). No focal neurological deficits. Speech is clear but nonsensical. Strength intact bilaterally 5/5. Results & Data Results & Data Vital Signs (Past 12 Hours) Vital Signs Temp Pulse Resp BP Pulse Ox O2 Del Method 09/17/24 14:29 97.3 F L 77 16 122/81 95 Room Air 09/17/24 11:12 97.9 F 83 16 109/70 95 Room Air PG Care Time/CCT Total # of Minutes Spent Total Time Spent with Patient: Total time spent is greater than 50% in coordination of care (as documented) at patient's floor/unit and/or counseling patient: Coding Level of Care Code 20801 SUB INP/OBS CARE 3/50MIN Diagnoses Alzheimer dementia with behavioral disturbance G30.9; F02.818 Oral candidiasis B37.0 Cellulitis of left elbow L03.114 Atrial fibrillation I48.91 Diabetes mellitus E11.9
[2024-09-17] MEDS: SODIUM CHLORIDE 0.9% 1,000 ML IV SCH ×2 (16:51→17:25)
[2024-09-18 12:51] LABS: BUN Creatinine Ratio 20.6 (10-20); Calcium 9.1 mg/dl (8.6-10.3); Creatinine Clr Calc Pharmacy 77.8 ml/min; Potassium 3.9 mmol/L (3.5-5.1)
--- NOTE | 2024-09-18 18:53 | Hospitalist Progress Note ---
Date of Service September 18, 2024 Assessment & Plan (1) Alzheimer dementia with behavioral disturbance: Plan: Encephalopathy/delirium in the setting of severe dementia Resides at [facility] dementia unit, currently not willing to have pt come back Requires assistance with meals and all ADLs Psychiatry consulted - recommendations below Discontinued home Seroquel, risperidone, Aricept, and Namenda Continue Sertraline 100 mg Since admission, started Clonidine 0.1 mg HS, Zyprexa 10 mg HS, and Zyprexa 2.5 mg QAM and qPM at 1400 -- Zyprexa 2.5 mg QAM on HOLD currently due to daytime sedation Gabapentin 100mg PO AM and 400mg PO HS Zyprexa 2.5mg IM prn for agitation. 1:1 lifted 08/18 and not needed since, much improved UA unremarkable, no reflex culture 09/10 Continue bowel regimen and monitor bowel movements; BM 09/18 Monitor urine output and give IV fluids when needed (2) Oral candidiasis: Plan: Scattered, non-confluent white plaques consistent with thrush on tongue, improving - Given multiple QTc prolonging medications, opted for Nystatin over fluconazole - Continue Nystatin 10 mg suspension QID (3) Cellulitis of left elbow: Plan: Scabbed abrasion noted on left elbow with surrounding erythema and warmth. Patient does not recall any injuries, denies pain - Full passive and active ROM of left elbow - Continue Keflex x 7 days (4) Atrial fibrillation: Plan: History of permanent A-fib on Eliquis Remained in rate controlled A-fib on telemetry, now since downgraded to med/surg unit Continue Eliquis No significant findings on echo Metoprolol decreased from 50mg daily to 12.5mg due to AM hypotension likely caused by clonidine Patient bradycardic and hypotensive 09/09, altered in behavior, much more lethargic per staff - placed back on telemetry due to EKG nursing did at bedside that was concern for pacemaker failure > pacemaker interrogation completed > cardiology consulted, discussed via Chmea almeida/ Dr. Zaman - interrogation consistent with A fib - remained stable and transferred back to med/surg 09/11 (5) Diabetes mellitus: Plan: Controlled with metformin at home; Held on admission Recent A1c 6.2% Continue ADA diet With minimal insulin requirement and glucose stable, discontinued supplemental NovoLog 08/16 Plan Conditions treated during hospital stay: - Forehead laceration: fall 08/08 w/ suture removal 08/16. Appears well healed. - Thiamine deficiency: Thiamine IV 500 mg Q8 x6 bags given. Transitioned to 200 mg PO daily 08/18 Dispo: medically stable for discharge now that acute psychiatric issues resolved - awaiting acceptance at facility Meds renewed through 10/24 CODE STATUS: Full code Admission and Anticipated Discharge Date Admission Date: August 08, 2024 Supervising Physician Co-Signing Physician Notes Attending Attestation - Chart reviewed, care plan d/w REBEKAH Montes. I agree w/ the stoll components of her documentation. Awaiting dispo. Chronic medical problems stable. Anthony Gilmore MD Subjective Patient seen and evaluated at bedside. He was more awake this morning compared to past couple days. He did have multiple bowel movements today. Denies any acute complaints. Continue to wait for rehab placement. Physical Exam Physical Exam: General: No acute distress, nondiaphoretic, well-developed, well-nourished. Skin: Old scar to left front of head, well healed. Scabbed abrasion on left elbow with IMPROVING surrounding erythema. Scattered, non-confluent white plaques consistent with thrush on tongue much improved. Cardiac: Regular rate and rhythm without murmurs gallops or rubs. Pulm: Clear to auscultation bilaterally without wheezes, rales or rhonchi. No respiratory distress. 100% on room air. Abdominal: Soft, nontender, nondistended. Bowel sounds present. Neuro: A&O x1 (person). No focal neurological deficits. Speech is clear but nonsensical. Results & Data Results & Data Vital Signs (Past 12 Hours) Vital Signs Temp Pulse Resp BP Pulse Ox O2 Del Method 09/18/24 14:48 98.4 F 67 16 112/78 100 Room Air 09/18/24 07:43 98.2 F 69 16 104/67 97 Room Air PG Care Time/CCT Total # of Minutes Spent Total Time Spent with Patient: Total time spent is greater than 50% in coordination of care (as documented) at patient's floor/unit and/or counseling patient: Coding Level of Care Code 15452 SUB INP/OBS CARE 11/18MIN Diagnoses Alzheimer dementia with behavioral disturbance G30.9; F02.818 Oral candidiasis B37.0 Cellulitis of left elbow L03.114 Atrial fibrillation I48.91 Diabetes mellitus E11.9
[2024-09-19 11:07] LABS: Creatinine Clr Calc Pharmacy 77.8 ml/min
--- NOTE | 2024-09-19 11:27 | Hospitalist Progress Note ---
Date of Service September 19, 2024 Assessment & Plan (1) Alzheimer dementia with behavioral disturbance: Plan: Encephalopathy/delirium in the setting of severe dementia Resides at [facility] dementia unit, currently not willing to have pt come back Requires assistance with meals and all ADLs Psychiatry consulted - recommendations below Discontinued home Seroquel, risperidone, Aricept, and Namenda Continue Sertraline 100 mg Since admission, started Clonidine 0.1 mg HS, Zyprexa 10 mg HS, and Zyprexa 2.5 mg QAM and qPM at 1400 -- Zyprexa 2.5 mg QAM on HOLD currently due to daytime sedation Gabapentin 100mg PO AM and 400mg PO HS Zyprexa 2.5mg IM prn for agitation. 1:1 lifted 08/18 and not needed since, much improved UA unremarkable, no reflex culture 09/10 Continue bowel regimen and monitor bowel movements; BM 09/18 Monitor urine output and give IV fluids when needed (2) Oral candidiasis: Plan: Scattered, non-confluent white plaques consistent with thrush on tongue, improving - Given multiple QTc prolonging medications, opted for Nystatin over fluconazole - Continue Nystatin 10 mg suspension QID (3) Cellulitis of left elbow: Plan: Scabbed abrasion noted on left elbow with surrounding erythema and warmth. Patient does not recall any injuries, denies pain - Full passive and active ROM of left elbow - Continue Keflex x 7 days, last dose 09/24/24 (4) Atrial fibrillation: Plan: History of permanent A-fib on Eliquis Remained in rate controlled A-fib on telemetry, now since downgraded to med/surg unit Continue Eliquis No significant findings on echo Metoprolol decreased from 50mg daily to 12.5mg due to AM hypotension likely c aused by clonidine Patient bradycardic and hypotensive 09/09, altered in behavior, much more lethargic per staff - placed back on telemetry due to EKG nursing did at bedside that was concern for pacemaker failure > pacemaker interrogation completed > cardiology consulted, discussed via Chema almeida/ Dr. Zaman - interrogation consistent with A fib - remained stable and transferred back to med/surg 09/11 (5) Diabetes mellitus: Plan: Controlled with metformin at home; Held on admission Recent A1c 6.2% Continue ADA diet With minimal insulin requirement and glucose stable, discontinued supplemental NovoLog 08/16 Plan Conditions treated during hospital stay: - Forehead laceration: fall 08/08 w/ suture removal 08/16. Appears well healed. - Thiamine deficiency: Thiamine IV 500 mg Q8 x6 bags given. Transitioned to 200 mg PO daily 08/18 Dispo: medically stable for discharge now that acute psychiatric issues resolved - awaiting acceptance at facility Meds renewed through 10/24 CODE STATUS: Full code Admission and Anticipated Discharge Date Admission Date: August 08, 2024 Subjective Patient seen and examined this morning. patient oriented to self only. patient offered no complaints. Physical Exam Constitutional: WD/WN, vitals as above Eyes: PERRL, conjunctivae normal, anicteric sclerae Respiratory: breathing unlabored Cardiovascular: well perfused Psychiatric: oriented to self Results & Data Results & Data Vital Signs (Past 12 Hours) Vital Signs Temp Pulse Resp BP BP Pulse Ox O2 Del Method 09/19/24 09:47 69 94/61 L 09/19/24 08:13 36.7 C 62 17 98/61 L 95 Room Air PG Care Time/CCT Total # of Minutes Spent Total Time Spent with Patient: Total time spent is greater than 50% in coordination of care (as documented) at patient's floor/unit and/or counseling patient: Coding Level of Care Code 92733 SUB INP/OBS CARE 11/18MIN Diagnoses Alzheimer dementia with behavioral disturbance G30.9; F02.818 Oral candidiasis B37.0 Cellulitis of left elbow L03.114 Atrial fibrillation I48.91 Diabetes mellitus E11.9
--- NOTE | 2024-09-20 11:40 | Hospitalist Progress Note ---
Date of Service September 20, 2024 Assessment & Plan (1) Alzheimer dementia with behavioral disturbance: Plan: Encephalopathy/delirium in the setting of severe dementia Resides at [facility] dementia unit, currently not willing to have pt come back Requires assistance with meals and all ADLs Psychiatry consulted - recommendations below Discontinued home Seroquel, risperidone, Aricept, and Namenda Continue Sertraline 100 mg Since admission, started Clonidine 0.1 mg HS, Zyprexa 10 mg HS, and Zyprexa 2.5 mg QAM and qPM at 1400 -- Zyprexa 2.5 mg QAM on HOLD currently due to daytime sedation Gabapentin 100mg PO AM and 400mg PO HS Zyprexa 2.5mg IM prn for agitation. 1:1 lifted 08/18 and not needed since, much improved UA unremarkable, no reflex culture 09/10 Continue bowel regimen and monitor bowel movements; BM 09/18 Monitor urine output and give IV fluids when needed (2) Oral candidiasis: Plan: Scattered, non-confluent white plaques consistent with thrush on tongue, improving - Given multiple QTc prolonging medications, opted for Nystatin over fluconazole - Continue Nystatin 10 mg suspension QID (3) Cellulitis of left elbow: Plan: Scabbed abrasion noted on left elbow with surrounding erythema and warmth. Patient does not recall any injuries, denies pain - Full passive and active ROM of left elbow - Continue Keflex x 7 days, last dose 09/24/24 (4) Atrial fibrillation: Plan: History of permanent A-fib on Eliquis Remained in rate controlled A-fib on telemetry, now since downgraded to med/surg unit Continue Eliquis No significant findings on echo Metoprolol decreased from 50mg daily to 12.5mg due to AM hypotension likely c aused by clonidine Patient bradycardic and hypotensive 09/09, altered in behavior, much more lethargic per staff - placed back on telemetry due to EKG nursing did at bedside that was concern for pacemaker failure > pacemaker interrogation completed > cardiology consulted, discussed via Chema almeida/ Dr. Zaman - interrogation consistent with A fib - remained stable and transferred back to med/surg 09/11 (5) Diabetes mellitus: Plan: Controlled with metformin at home; Held on admission Recent A1c 6.2% Continue ADA diet With minimal insulin requirement and glucose stable, discontinued supplemental NovoLog 08/16 Plan Conditions treated during hospital stay: - Forehead laceration: fall 08/08 w/ suture removal 08/16. Appears well healed. - Thiamine deficiency: Thiamine IV 500 mg Q8 x6 bags given. Transitioned to 200 mg PO daily 08/18 Dispo: medically stable for discharge now that acute psychiatric issues resolved - awaiting acceptance at facility Meds renewed through 10/24 CODE STATUS: Full code Admission and Anticipated Discharge Date Admission Date: August 08, 2024 Subjective Patient seen and examined this morning with nursing at bedside. patient denied no complaints at time of encounter. Physical Exam Constitutional: WD/WN, vitals as above Eyes: PERRL, conjunctivae normal, anicteric sclerae Respiratory: breathing unlabored Cardiovascular: well perfused Psychiatric: oriented to self PG Care Time/CCT Total # of Minutes Spent Total Time Spent with Patient: Total time spent is greater than 50% in coordination of care (as documented) at patient's floor/unit and/or counseling patient: Coding Level of Care Code 26682 SUB INP/OBS CARE 11/18MIN Diagnoses Alzheimer dementia with behavioral disturbance G30.9; F02.818 Oral candidiasis B37.0 Cellulitis of left elbow L03.114 Atrial fibrillation I48.91 Diabetes mellitus E11.9
--- NOTE | 2024-09-21 12:40 | Hospitalist Progress Note ---
Date of Service September 21, 2024 Assessment & Plan (1) Alzheimer dementia with behavioral disturbance: Plan: Encephalopathy/delirium in the setting of severe dementia Resides at [facility] dementia unit, currently not willing to have pt come back Requires assistance with meals and all ADLs Psychiatry consulted - recommendations below Discontinued home Seroquel, risperidone, Aricept, and Namenda Continue Sertraline 100 mg Since admission, started Clonidine 0.1 mg HS, Zyprexa 10 mg HS, and Zyprexa 2.5 mg QAM and qPM at 1400 -- Zyprexa 2.5 mg QAM on HOLD currently due to daytime sedation Gabapentin 100mg PO AM and 400mg PO HS Zyprexa 2.5mg IM prn for agitation. 1:1 lifted 08/18 and not needed since, much improved UA unremarkable, no reflex culture 09/10 Continue bowel regimen and monitor bowel movements; BM 09/18 Monitor urine output and give IV fluids when needed (2) Oral candidiasis: Plan: Scattered, non-confluent white plaques consistent with thrush on tongue, improving - Given multiple QTc prolonging medications, opted for Nystatin over fluconazole - Continue Nystatin 10 mg suspension QID (3) Cellulitis of left elbow: Plan: Scabbed abrasion noted on left elbow with surrounding erythema and warmth. Patient does not recall any injuries, denies pain - Full passive and active ROM of left elbow - Continue Keflex x 7 days, last dose 09/24/24 (4) Atrial fibrillation: Plan: History of permanent A-fib on Eliquis Remained in rate controlled A-fib on telemetry, now since downgraded to med/surg unit Continue Eliquis No significant findings on echo Metoprolol decreased from 50mg daily to 12.5mg due to AM hypotension likely c aused by clonidine Patient bradycardic and hypotensive 09/09, altered in behavior, much more lethargic per staff - placed back on telemetry due to EKG nursing did at bedside that was concern for pacemaker failure > pacemaker interrogation completed > cardiology consulted, discussed via Chema almeida/ Dr. Zaman - interrogation consistent with A fib - remained stable and transferred back to med/surg 09/11 (5) Diabetes mellitus: Plan: Controlled with metformin at home; Held on admission Recent A1c 6.2% Continue ADA diet With minimal insulin requirement and glucose stable, discontinued supplemental NovoLog 08/16 Plan Conditions treated during hospital stay: - Forehead laceration: fall 08/08 w/ suture removal 08/16. Appears well healed. - Thiamine deficiency: Thiamine IV 500 mg Q8 x6 bags given. Transitioned to 200 mg PO daily 08/18 Dispo: medically stable for discharge now that acute psychiatric issues resolved - awaiting acceptance at facility Meds renewed through 10/24 CODE STATUS: Full code Admission and Anticipated Discharge Date Admission Date: August 08, 2024 Subjective Patient seen and examined this morning. Patient oriented to self only. Has no complaints. Physical Exam Constitutional: WD/WN, vitals as above Eyes: PERRL, conjunctivae normal, anicteric sclerae Respiratory: breathing unlabored Cardiovascular: well perfused Psychiatric: oriented to self Results & Data Results & Data Vital Signs (Past 12 Hours) Vital Signs Temp Pulse Resp BP Pulse Ox O2 Del Method 09/21/24 09:28 83 116/76 09/21/24 07:54 Room Air 09/21/24 07:15 36.6 C 85 16 113/79 92 Room Air PG Care Time/CCT Total # of Minutes Spent Total Time Spent with Patient: Total time spent is greater than 50% in coordination of care (as documented) at patient's floor/unit and/or counseling patient: Coding Level of Care Code 83456 SUB INP/OBS CARE 11/18MIN Diagnoses Alzheimer dementia with behavioral disturbance G30.9; F02.818 Oral candidiasis B37.0 Cellulitis of left elbow L03.114 Atrial fibrillation I48.91 Diabetes mellitus E11.9
[2024-09-22 07:04] LABS: Creatinine Clr Calc Pharmacy 69.2 ml/min
--- NOTE | 2024-09-22 13:46 | Hospitalist Progress Note ---
Date of Service September 22, 2024 Assessment & Plan (1) Alzheimer dementia with behavioral disturbance: Plan: Encephalopathy/delirium in the setting of severe dementia Resides at [facility] dementia unit, currently not willing to have pt come back Requires assistance with meals and all ADLs Psychiatry consulted - recommendations below Discontinued home Seroquel, risperidone, Aricept, and Namenda Continue Sertraline 100 mg Since admission, started Clonidine 0.1 mg HS, Zyprexa 10 mg HS, and Zyprexa 2.5 mg QAM and qPM at 1400 -- Zyprexa 2.5 mg QAM on HOLD currently due to daytime sedation Gabapentin 100mg PO AM and 400mg PO HS Zyprexa 2.5mg IM prn for agitation. 1:1 lifted 08/18 and not needed since, much improved UA unremarkable, no reflex culture 09/10 Continue bowel regimen and monitor bowel movements; BM 09/18 Monitor urine output and give IV fluids when needed (2) Oral candidiasis: Plan: Scattered, non-confluent white plaques consistent with thrush on tongue, improv ing - Given multiple QTc prolonging medications, opted for Nystatin over fluconazole - Continue Nystatin 10 mg suspension QID (3) Cellulitis of left elbow: Plan: Scabbed abrasion noted on left elbow with surrounding erythema and warmth. Patient does not recall any injuries, denies pain - Full passive and active ROM of left elbow - Continue Keflex x 7 days, last dose 09/24/24 (4) Atrial fibrillation: Plan: History of permanent A-fib on Eliquis Remained in rate controlled A-fib on telemetry, now since downgraded to med/surg unit Continue Eliquis No significant findings on echo Metoprolol decreased from 50mg daily to 12.5mg due to AM hypotension likely caused by clonidine Patient bradycardic and hypotensive 09/09, altered in behavior, much more lethargic per staff - placed back on telemetry due to EKG nursing did at bedside that was concern for pacemaker failure > pacemaker interrogation completed > cardiology consulted, discussed via Chema almeida/ Dr. Zaman - interrogation consistent with A fib - remained stable and transferred back to med/surg 09/11 (5) Diabetes mellitus: Plan: Controlled with metformin at home; Held on admission Recent A1c 6.2% Continue ADA diet With minimal insulin requirement and glucose stable, discontinued supplemental NovoLog 08/16 Plan Conditions treated during hospital stay: - Forehead laceration: fall 08/08 w/ suture removal 08/16. Appears well healed. - Thiamine deficiency: Thiamine IV 500 mg Q8 x6 bags given. Transitioned to 200 mg PO daily 08/18 Dispo: medically stable for discharge now that acute psychiatric issues resolved - awaiting acceptance at facility Meds renewed through 10/24 CODE STATUS: Full code Admission and Anticipated Discharge Date Admission Date: August 08, 2024 Subjective Patient seen and examined this morning. Patient alert to self only. He offered no complaints. Physical Exam Constitutional: WD/WN, vitals as above Eyes: PERRL, conjunctivae normal, anicteric sclerae Respiratory: breathing unlabored Cardiovascular: well perfused Psychiatric: oriented to self Results & Data Results & Data Vital Signs (Past 12 Hours) Vital Signs Pulse Resp BP Pulse Ox O2 Del Method 09/22/24 09:33 Room Air 09/22/24 09:09 58 L 17 105/74 97 Room Air PG Care Time/CCT Total # of Minutes Spent Total Time Spent with Patient: Total time spent is greater than 50% in coordination of care (as documented) at patient's floor/unit and/or counseling patient: Coding Level of Care Code 48357 SUB INP/OBS CARE 11/18MIN Diagnoses Alzheimer dementia with behavioral disturbance G30.9; F02.818 Oral candidiasis B37.0 Cellulitis of left elbow L03.114 Atrial fibrillation I48.91 Diabetes mellitus E11.9
[2024-09-23 07:10] LABS: Hematocrit (blood only) 39.6 % (42.0-52.0); Hemoglobin 13.7 g/dl (14.0-18.0); Mean Corpuscular Volume 90.4 fL (80.0-100.0); Red Blood Count 4.38 M/uL (4.70-6.10)
[2024-09-23 07:11] LABS: Mean Corpuscular Hemoglobin 31.3 pg (25.0-34.0); Mean Corpuscular Hgb Conc 34.6 g/dL (32.0-36.0); Mean Platelet Volume 10.9 fL (9.4-12.4); Platelet Count 205 K/uL (130-400); RDW Coefficient of Variation 12.6 % (11.5-14.5); RDW Standard Deviation 41.1 fL (36.4-46.3)
--- NOTE | 2024-09-23 13:52 | Hospitalist Progress Note ---
Date of Service September 23, 2024 Assessment & Plan (1) Alzheimer dementia with behavioral disturbance: Plan: Encephalopathy/delirium in the setting of severe dementia Resides at [facility] dementia unit, currently not willing to have pt come back Requires assistance with meals and all ADLs Psychiatry consulted - recommendations below Discontinued home Seroquel, risperidone, Aricept, and Namenda Continue Sertraline 100 mg Since admission, started Clonidine 0.1 mg HS, Zyprexa 10 mg HS and qPM at 1400 -- Zyprexa 2.5 mg QAM on HOLD currently due to daytime sedation Gabapentin 100mg PO AM and 400mg PO HS Zyprexa 2.5mg IM prn for agitation. 1:1 lifted 08/18 and not needed since, much improved UA unremarkable, no reflex culture 09/10 Continue bowel regimen and monitor bowel movements Monitor urine output and give IV fluids when needed (2) Oral candidiasis: Plan: Scattered, non-confluent white plaques consistent with thrush on tongue, improving - Given multiple QTc prolonging medications, opted for Nystatin over fluconazole - Continue Nystatin 10 mg suspension QID, started 09/13 (3) Cellulitis of left elbow: Plan: Scabbed abrasion noted on left elbow with surrounding erythema and warmth. Patient does not recall any injuries, denies pain - Full passive and active ROM of left elbow - Continue Keflex x 7 days, last dose 09/24/24 (4) Atrial fibrillation: Plan: History of permanent A-fib on Eliquis Remained in rate controlled A-fib on telemetry, now since downgraded to med/surg unit Continue Eliquis No significant findings on echo Metoprolol decreased from 50mg daily to 12.5mg due to AM hypotension likely caused by clonidine Pacemaker interrogation completed 09/09 and discussed w/ Dr. Montano - consistent with A fib. (5) Diabetes mellitus: Plan: Controlled with metformin at home; Held on admission Recent A1c 6.2% Continue ADA diet With minimal insulin requirement and glucose stable, discontinued supplemental NovoLog 08/16 Plan Conditions treated during hospital stay: - Forehead laceration: fall 08/08 w/ suture removal 08/16. Appears well healed. - Thiamine deficiency: Thiamine IV 500 mg Q8 x6 bags given. Transitioned to 200 mg PO daily 08/18 Dispo: medically stable for discharge now that acute psychiatric issues resolved - awaiting acceptance at facility Meds renewed through 10/24 CODE STATUS: Full code Admission and Anticipated Discharge Date Admission Date: August 08, 2024 Subjective Patient seen and examined this morning. Patient confused and agitated this morning. PRN zyprexa was given. Physical Exam Constitutional: WD/WN, vitals as above Eyes: PERRL, conjunctivae normal, anicteric sclerae Respiratory: breathing unlabored Cardiovascular: well perfused Psychiatric: oriented to self Results & Data Results & Data Vital Signs (Past 12 Hours) Vital Signs Temp Pulse Resp BP BP Pulse Ox O2 Del Method 09/23/24 08:42 85 127/69 09/23/24 07:32 36.7 C 71 18 107/54 L 100 Room Air PG Care Time/CCT Total # of Minutes Spent Total Time Spent with Patient: Total time spent is greater than 50% in coordination of care (as documented) at patient's floor/unit and/or counseling patient: Coding Level of Care Code 53443 SUB INP/OBS CARE 25MIN Diagnoses Alzheimer dementia with behavioral disturbance G30.9; F02.818 Oral candidiasis B37.0 Cellulitis of left elbow L03.114 Atrial fibrillation I48.91 Diabetes mellitus E11.9
--- NOTE | 2024-09-24 12:45 | Hospitalist Progress Note ---
Date of Service September 24, 2024 Assessment & Plan (1) Alzheimer dementia with behavioral disturbance: Plan: Encephalopathy/delirium in the setting of severe dementia Resides at [facility] dementia unit, currently not willing to have pt come back Requires assistance with meals and all ADLs Psychiatry consulted - recommendations below Discontinued home Seroquel, risperidone, Aricept, and Namenda Continue Sertraline 100 mg Since admission, started Clonidine 0.1 mg HS, Zyprexa 10 mg HS and qPM at 1400 -- Zyprexa 2.5 mg QAM on HOLD currently due to daytime sedation Gabapentin 100mg PO AM and 400mg PO HS Zyprexa 2.5mg IM prn for agitation. 1:1 lifted 08/18 and not needed since, much improved UA unremarkable, no reflex culture 09/10 Continue bowel regimen and monitor bowel movements Monitor urine output and give IV fluids when needed (2) Oral candidiasis: Plan: Scattered, non-confluent white plaques consistent with thrush on tongue, improving - Given multiple QTc prolonging medications, opted for Nystatin over fluconazole - Continue Nystatin 10 mg suspension QID, started 09/13 (3) Atrial fibrillation: Plan: History of permanent A-fib on Eliquis Remained in rate controlled A-fib on telemetry, now since downgraded to med/surg unit Continue Eliquis No significant findings on echo Metoprolol decreased from 50mg daily to 12.5mg due to AM hypotension likely caused by clonidine Pacemaker interrogation completed 09/09 and discussed w/ Dr. Montano - consistent with A fib. (4) Diabetes mellitus: Plan: Controlled with metformin at home; Held on admission Recent A1c 6.2% Continue ADA diet With minimal insulin requirement and glucose stable, discontinued supplemental NovoLog 08/16 Plan Conditions treated during hospital stay: - Forehead laceration: fall 08/08 w/ suture removal 08/16. Appears well healed. - Thiamine deficiency: Thiamine IV 500 mg Q8 x6 bags given. Transitioned to 200 mg PO daily 08/18 - Cellulitis of left elbow: Keflex x 7 days, last dose 09/24. Dispo: medically stable for discharge now that acute psychiatric issues resolved - awaiting acceptance at facility Meds renewed through 10/24 CODE STATUS: Full code Admission and Anticipated Discharge Date Admission Date: August 08, 2024 Subjective Patient seen and examined this morning. Patient sleeping but arousable at time of encounter. When aroused, he offered no complaints. Physical Exam Constitutional: WD/WN, vitals as above Eyes: PERRL, conjunctivae normal, anicteric sclerae Respiratory: breathing unlabored Cardiovascular: well perfused Psychiatric: oriented to self Results & Data Results & Data Vital Signs (Past 12 Hours) Vital Signs Pulse BP Pulse Ox O2 Del Method 09/24/24 10:13 85 131/73 95 Room Air PG Care Time/CCT Total # of Minutes Spent Total Time Spent with Patient: Total time spent is greater than 50% in coordination of care (as documented) at patient's floor/unit and/or counseling patient: Coding Level of Care Code 17564 SUB INP/OBS CARE 11/18MIN Diagnoses Alzheimer dementia with behavioral disturbance G30.9; F02.818 Oral candidiasis B37.0 Atrial fibrillation I48.91 Diabetes mellitus E11.9
[2024-09-25 09:35] LABS: Creatinine Clr Calc Pharmacy 77.8 ml/min
--- NOTE | 2024-09-25 10:51 | Hospitalist Progress Note ---
Date of Service September 25, 2024 Assessment & Plan (1) Alzheimer dementia with behavioral disturbance: Plan: Encephalopathy/delirium in the setting of severe dementia. Previously resided at [facility] dementia unit, currently not willing to have pt come back Requires assistance with meals and all ADLs Psychiatry consulted - recommendations below Discontinued home Seroquel, risperidone, Aricept, and Namenda Continue Sertraline 100 mg Since admission, started Clonidine 0.1 mg HS, Zyprexa 10 mg HS and qPM at 1400 -- Zyprexa 2.5 mg QAM previously on hold, due to sedation, however last IM dose given early childhood assistant, will change to PRN Gabapentin 100mg PO AM and 400mg PO HS Zyprexa 2.5mg IM prn for agitation. (last used 09/23) 1:1 lifted 08/18 and not needed since, much improved UA unremarkable, no reflex culture 09/10 Continue bowel regimen and monitor bowel movements Monitor urine output and give IV fluids when needed (2) Oral candidiasis: Plan: Scattered, non-confluent white plaques consistent with thrush on tongue, improving - Given multiple QTc prolonging medications, opted for Nystatin over fluconazole - Continue Nystatin 10 mg suspension QID, started 09/13 (3) Atrial fibrillation: Plan: History of permanent A-fib on Eliquis Remained in rate controlled A-fib on telemetry, now downgraded to med/surg unit Continue Eliquis No significant findings on echo Metoprolol decreased from 50mg daily to 12.5mg due to AM hypotension likely caused by clonidine Pacemaker interrogation completed 09/09 and discussed w/ Dr. Montano - consistent with A fib. (4) Diabetes mellitus: Plan: Controlled with metformin at home; Held on admission Recent A1c 6.2% Continue ADA diet With minimal insulin requirement and glucose stable, discontinued supplemental NovoLog 08/16 Plan Conditions treated during hospital stay: - Forehead laceration: fall 08/08 w/ suture removal 08/16. Appears well healed. - Thiamine deficiency: Thiamine IV 500 mg Q8 x6 bags given. Transitioned to 200 mg PO daily 08/18 - Cellulitis of left elbow: Keflex x 7 days, last dose 09/24. Dispo: medically stable for discharge now that acute psychiatric issues resolved - awaiting acceptance at facility Meds renewed through 10/24 CODE STATUS: Full code Admission and Anticipated Discharge Date Admission Date: August 08, 2024 Subjective Patient seen moving around in bed, offered to help reposition or adjust sheets and he declined Reporting being hungry - drank entire boost drink, did not want anything further from his tray no other complaints Review of Systems Review of Systems: All systems reviewed & are unremarkable except as noted in Subjective Physical Exam Physical Exam: General: NAD, VS as above Resp: normal respiratory effort, Abd: soft, non tender, Extremities: Moves all extremities, very restless Neuro: A&O x1 (self only), pressured speech, flight of ideas Skin: intact, no lesions noted Results & Data Results & Data Vital Signs (Past 12 Hours) Vital Signs Temp Pulse Resp BP Pulse Ox O2 Del Method 09/25/24 08:05 97.7 F 63 16 127/77 92 Room Air PG Care Time/CCT Total # of Minutes Spent Total Time Spent with Patient: Total time spent is greater than 50% in coordination of care (as documented) at patient's floor/unit and/or counseling patient: Coding Level of Care Code 22860 SUB INP/OBS CARE 2/35MIN Diagnoses Alzheimer dementia with behavioral disturbance G30.9; F02.818 Oral candidiasis B37.0 Atrial fibrillation I48.91 Diabetes mellitus E11.9
[2024-09-25] MEDS ORDERED: OLANZAPINE 2.5 MG TAB PO PRN (16:05)
--- NOTE | 2024-09-26 13:20 | Hospitalist Progress Note ---
Date of Service September 26, 2024 Assessment & Plan (1) Alzheimer dementia with behavioral disturbance: Plan: Encephalopathy/delirium in the setting of severe dementia. Previously resided at [facility] dementia unit, currently not willing to have pt come back Requires assistance with meals and all ADLs Psychiatry consulted - recommendations below Discontinued home Seroquel, risperidone, Aricept, and Namenda Continue Sertraline 100 mg Since admission, started Clonidine 0.1 mg HS, Zyprexa 10 mg HS and qPM at 1400 -- Zyprexa 2.5 mg QAM previously on hold, due to sedation, however last IM dose given advertising sales agent, will change to PRN Gabapentin 100mg PO AM and 400mg PO HS 1:1 lifted 08/18 and not needed since, much improved UA unremarkable, no reflex culture 09/10 Continue bowel regimen and monitor bowel movements (2) Atrial fibrillation: Plan: History of permanent A-fib on Eliquis. Was rate controlled when on telemetry, no downgraded. No significant findings on echo Metoprolol decreased from 50mg daily to 12.5mg due to AM hypotension likely caused by clonidine --> BP stable since. Pacemaker interrogation completed 09/09 and discussed w/ Dr. Montano - consistent with A fib. (3) Diabetes mellitus: Plan: Controlled with metformin at home - discontinued. Recent A1c 6.2% Continue ADA diet With minimal insulin requirement and glucose stable, discontinued supplemental NovoLog 08/16 Plan Conditions treated during hospital stay: - Forehead laceration: fall 08/08 w/ suture removal 08/16. Appears well healed. - Thiamine deficiency: Thiamine IV 500 mg Q8 x6 bags given. Transitioned to 200 mg PO daily 08/18 - Cellulitis of left elbow: Keflex x 7 days, last dose 09/24. - trus - completed Nystain Dispo: medically stable for discharge now that acute psychiatric issues resolved - accepted in [place], anticipate discharge tomorrow. All medications sent 09/26 Meds renewed through 10/24 updated by phone 09/26 Admission and Anticipated Discharge Date Admission Date: August 08, 2024 Supervising Physician Co-Signing Physician Notes Attending Attestation - Chart reviewed, care plan d/w REBEKAH Bernal. I agree w/ the stoll components of her documentation. Dispo - facility in [place] - to have a bed tomorrow. Anthony Gilmore MD Subjective patient seen lying in bed. denies pain. States he is not hungry. Offered a clean gown but he declined. Review of Systems Review of Systems: All systems reviewed & are unremarkable except as noted in Subjective Physical Exam Physical Exam: General: NAD, VS as above, resting in bed, significantly calmer than yesterday Resp: normal respiratory effort, Abd: soft, non tender, Extremities: Moves all extremities, very restless Neuro: A&O x1 (self only), Skin: intact, no lesions noted Results & Data Results & Data Vital Signs (Past 12 Hours) Vital Signs Temp Pulse Resp BP Pulse Ox O2 Del Method 09/26/24 07:52 97.7 F 79 16 148/87 H 97 Room Air PG Care Time/CCT Total # of Minutes Spent Total Time Spent with Patient: Total time spent is greater than 50% in coordination of care (as documented) at patient's floor/unit and/or counseling patient: Coding Level of Care Code 50501 SUB INP/OBS CARE 2/35MIN Diagnoses Alzheimer dementia with behavioral disturbance G30.9; F02.818 Atrial fibrillation I48.91 Diabetes mellitus E11.9
[2024-09-27 07:42] VITALS: RESP 14; TEMP 97.3; O2SAT 98
[2024-09-27 09:27] VITALS: PULSE 78
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
[2024-09-27 10:35] VITALS: BP 102/74
== END 2024-09-27 11:04 | DRG 56 ==
LOC: MERGE 08:37 → ED 08:37 → 2E 14:05 → SUATTDRO 14:05 → 2E 17:00 → 3N 08-19 14:38 → 2W 09-09 16:44 → 3W 09-11 22:09